=== PATIENT | female | born 1975 | race Hispanic/Latino ===

== ENCOUNTER 2025-05-06 12:41 | Emergency (ER) | payer OTHER ==
[~2025-05-06] VITALS: Ht 152.4 cm; Wt 86.2 kg
--- NOTE | 2025-05-06 12:55 | ERN ---
General Chief Complaint: Rectal Bleed Stated Complaint: RECTAL BLEEDING Time Seen by MD: 12:43 Source: patient History of Present Illness Initial Comments Patient is a 50-year-old female coming in complaining of rectal bleed. Per patient this has been ongoing for three days. She states that she does has a history of hemorrhoids but only when she was she has not felt anything protruding for any discomfort in the area. Allergies: Coded Allergies: No Known Allergies (Unverified Allergy, Unknown, 05/06/25) Past Medical History Past Medical History: No Pertinent History Past Surgical History: ROS Dictation CONSTITUTIONAL: No chills, no fever, no weakness, no diaphoresis, no malaise. HEAD/FACE: No signs of trauma. EENT: No eye pain, no blurred vision, no tearing, no double vision, no ear pain, no ear discharge, no nose pain, no nasal congestion, no throat pain, no throat swelling, no mouth pain. RESPIRATORY: No cough, no orthopnea, no SOB, no stridor, no wheezing. CARDIOVASCULAR: No chest pain, no edema, no palpitations, no syncope. GASTROINTESTINAL/ABDOMINAL: No abdominal pain, no constipation, no diarrhea, rectal bleed GENITOURINARY: No abnormal discharge, no dysuria, no frequent urination, no hematuria. No complaints of pain in the genitals. MUSCULOSKELETAL: No back pain, no gout, no joint pain, no joint swelling, no muscle pain, no muscle stiffness, no neck pain. INTEGUMENTARY: No change in color, no change in hair/nails, no dryness, no lesion, no lumps, no rash. NEUROLOGICAL/PSYCH: No anxiety, not depressed, no emotional problem, no headache, no numbness, no pre-existing deficit, no history of seizures, no tremors, no weakness. HEMATOLOGIC/LYMPHATIC: Not anemic, no history of blood clots, no apparent bleeding, no bruising, glands not swollen. All Systems Negative, Except as Noted. Physical Exam Physical Exam Dictation VITAL SIGNS: Reviewed. GENERAL APPEARANCE: Alert, oriented x3, no acute distress, obese. HEAD AND FACE: Non-traumatic. EYES: PERRL, pink conjunctivas, eyelid no trauma, anterior chamber clear. EARS: Pinnas intact and no signs of trauma or erythema. Ear canals clear and no discharge. TMs no erythema. NOSE: No discharge, no bleeding. OROPHARYNX: Mouth normal, teeth no caries, tongue pink. Pharynx clear, no erythema. Tonsils no exudates, no abscesses noted. Mucous membrane moist. NECK: Supple, non-tender, no thyromegaly, no masses, no JVD, no bruits. BREAST: Deferred. CHEST: No tenderness, no crepitus, no paradoxical movement, no retractions. LUNGS: Clear, well-ventilated, symmetric, no rales, no wheezing, no rhonchi, no stridor, good breath sounds bilaterally. HEART: Regular rate, regular rhythm, no murmur, no gallops. VASCULAR: No peripheral edema. ABDOMEN: Soft, positive bowel sounds, nondistended, no guarding, nontender, no rebound, no masses no hepatomegaly, no splenomegaly, no Zee's sign, no hernias. RECTAL: Rectal exam chaperoned by nurse internal hemorrhoids at 6:00 a.m. region GENITAL: Deferred. NEUROLOGICAL: Normal speech, gross motor function intact, gross sensory function intact. MUSCULOSKELETAL: Neck nontender, full range of motion, back nontender, full range of motion. EXTREMITIES: Nontender, full range of motion. SKIN: Color pink, dry, no turgor, no rash, no lacerations, no abrasions, no contusions. LYMPHATICS: Deferred. Results Laboratory and Microbiology Lab and Micro Result Laboratory Tests Test 05/06/25 13:05 05/06/25 13:06 05/06/25 13:21 Stool Occult Blood POSITIVE (NEGATIVE) H Urine Color YELLOW (YELLOW) Urine Appearance CLEAR (CLEAR) Urine pH 6.0 (5.0-8.0) Urine Specific [place] 1.030 (1.001-1.031) Urine Protein NEGATIVE mg/dL (NEGATIVE) Urine Glucose (UA) 30 mg/dL (NEGATIVE) H Urine Ketones NEGATIVE mg/dL (NEGATIVE) Urine Occult Blood NEGATIVE (NEGATIVE) Urine Nitrate NEGATIVE (NEGATIVE) Urine Bilirubin NEGATIVE mg/dL (NEGATIVE) Urine Urobilinogen 0.2 mg/dL (0.2-1.0) Urine Leukocyte Esterase NEGATIVE [place]/uL Urine RBC 2-5 /HPF (0-1) H Urine WBC 0-1 /HPF (0-1) Urine Squamous Epithelial Cells RARE /HPF (0-2) Urine Bacteria None /HPF (None Seen) White Blood Count 8.2 K/uL (4.8-10.8) Red Blood Count 3.84 MIL/uL (4.00-5.50) L Hemoglobin 11.3 g/dL (12.0-16.0) L Hematocrit 34.3 % (36-48) L Mean Corpuscular Volume 89.3 fL (79-99) Mean Corpuscular Hemoglobin 29.4 pg (27.0-33.0) Mean Corpuscular Hemoglobin Concent 32.9 g/dL (32.0-36.0) Red Cell Distribution Width 13.6 % (11.0-15.5) Platelet Count 319 K/uL (130-400) Mean Platelet Volume 9.2 fL (7.5-10.5) Immature Granulocyte % (Auto) 0.2 % (0-1) Neutrophils (%) (Auto) 44.4 % (40.0-77.0) Lymphocytes (%) (Auto) 43.1 % (21.0-51.0) Monocytes (%) (Auto) 9.1 % (3.0-13.0) Eosinophils (%) (Auto) 2.7 % (0.0-8.0) Basophils (%) (Auto) 0.5 % (0.0-5.0) Neutrophils # (Auto) 3.6 K/uL (1.8-7.7) Lymphocytes # (Auto) 3.5 K/uL (1.0-4.8) Monocytes # (Auto) 0.7 K/uL (0.1-1.0) Eosinophils # (Auto) 0.22 K/uL (0.00-0.70) Basophils # (Auto) 0.04 K/uL (0.00-0.20) Absolute Immature Granulocyte (auto 0.02 K/uL (0-1) Nucleated Red Blood Cells 0.0 % (0.0-0.19) Sodium Level 139 mmol/L (136-145) Potassium Level 4.0 mmol/L (3.5-5.1) Chloride Level 105 mmol/L (101-111) Carbon Dioxide Level 28 mmol/L (21-32) Blood Urea Nitrogen 13 mg/dL (7-18) Creatinine 0.7 mg/dL (0.5-1.0) Glomerular Filtration Rate Calc 105 mL/min (>90) Random Glucose 88 mg/dL (70-105) Total Calcium 8.2 mg/dL (8.5-10.1) L Labs Reviewed?: Yes MDM MDM: Differential diagnosis: Rectal bleed, internal hemorrhoids, GI bleed, Rationale: Tests considered and ordered secondary to shared decision making include: Previous outside records reviewed: Old ER visits. Risk of complication and/or morbidity or mortality of patient management: None Medications-Per medication reconciliation Need for hospitalization: Patient does not meet criteria for hospitalization. Need for emergency major/minor surgery: No Patient is a 50-year-old female coming in complaining of rectal bleed x3 days. Patient does state that she has a history of constipation and hemorrhoids as well. On physical exam chaperoned by nurse internal hemorrhoids at 6:00 a.m. region were felt with these findings I did advised her appropriate follow up with a chemistry tutor we will be referring her to chemistry tutor. I will be providing medication for symptomatic relief of hemorrhoids. Throughout ER vision patient has been stable we will be discharged in stable condition. ED Course Orders Procedure Category Date Status Time Cbc With Differential LAB 05/06/25 Complete 13:05 Basic Metabolic Panel LAB 05/06/25 Complete 13:05 Urinalysis LAB 05/06/25 Complete W/Microscopic 13:05 Occult Blood Stool LAB 05/06/25 Complete Single Only 13:05 Pantoprazole 40mg Inj PHA 05/06/25 In Process (Protonix 40mg Inj 14:00 Current Medications Medications (Trade) Dose Ordered Sig/Richar Route PRN Reason Start Time Stop Time Status Last Admin Dose Admin Pantoprazole Sodium (PROTonix 40MG INJ) 40 mg ONCE ONCE IVP 05/06/25 14:00 05/06/25 14:01 Vital Signs Date Time Temp Pulse Resp B/P (MAP) Pulse Ox O2 Delivery O2 Flow Rate FiO2 05/06/25 13:41 98.2 62 16 116/70 98 Room Air* 0 21 05/06/25 13:00 98.2 66 16 127/81 98 Room Air* 0 21 05/06/25 12:43 98.1 71 20 136/81 99 Room Air 0 DX & DISP Disposition: Discharge Departure Impression: Primary Impression: Internal hemorrhoids Additional Impression: Anemia Condition: Stable Scripts Pantoprazole Sodium (Protonix) 40 Mg Ectab 1 TAB PO DAILY for 30 Days, #30 TAB 0 Refills Prov: KEREN BARRON MD 05/06/25 Hydrocortisone Acetate (Hemmorex-Hc) 25 Mg Supp.rect 25 MG RC DAILY for 5 Days, #5 EA Prov: KEREN BARRON MD 05/06/25 Additional Instructions: FOLLOW-UP WITH PRIMARY CARE PROVIDER IN 1 TO 2 DAYS. TAKE MEDICATIONS DIRECTED HERE IN THE EMERGENCY ROOM. OKAY TO CONTINUE HOME MEDICATIONS UNLESS OTHERWISE DISCUSSED DURING YOUR VISIT IN THE EMERGENCY ROOM TODAY. RETURN TO YOUR NEAREST EMERGENCY ROOM IF SYMPTOMS WORSEN OR IF THERE IS NO IMPROVEMENT. CALL 911 IF YOU NEED IMMEDIATE ASSISTANCE. TAKE TYLENOL [id number] NEEDED AND IF NO CONTRAINDICATIONS ARE PRESENT. INCREASE ORAL HYDRATION. A WOUND CULTURE OR URINE CULTURE WAS ORDERED HERE IN THE EMERGENCY ROOM DEPARTMENT PLEASE FOLLOW-UP WITH PRIMARY CARE PROVIDER AND ADVISE THEM TO GET REPORTS FROM OUR FACILITY. IF YOU HAD ANY JEANNIE WRAP/SPLINTS THAT WERE APPLIED HERE, PLEASE DO NOT REMOVE THEM UNTIL YOU SEE YOUR PRIMARY CARE OR SPECIALTY. Referrals: Referrals: SELF,REFERRAL (PCP) SHRUTHI CARRILLO MD, BRIAN P MD Time of Disposition: 13:49 KEREN BARRON MD May 06, 2025 12:55
[2025-05-06 13:18] LABS: APPEARANCE,URINE CLEAR (CLEAR); GLUCOSE, URINE (UA) 30 mg/dL (NEGATIVE); LEUKOCYTE ESTERASE ,URINE NEGATIVE Leu/uL (NEGATIVE); NITRATE,URINE NEGATIVE (NEGATIVE); OCCULT BLOOD,URINE NEGATIVE (NEGATIVE)
[2025-05-06 13:25] LABS: IMMATURE GRANULOCYTE ABSOLUTE 0.02 K/uL (0-1); NUCLEATED RED BLOOD CELLS 0.0 % (0.0-0.19); PLATELET COUNT (AUTO) 319 K/uL (130-400); RED BLOOD CELL COUNT(AUTO) 3.84 MIL/uL (4.00-5.50); RED CELL DISTRIBUTION WIDTH 13.6 % (11.0-15.5); WHITE BLOOD COUNT (AUTO) 8.2 K/uL (4.8-10.8)
[2025-05-06 13:32] LABS: CREATININE 0.7 mg/dL (0.5-1.0); GLOMERULAR FILTR. RATE CALC 105.0 mL/min (>90); GLUCOSE,RANDOM 88.0 mg/dL (70-105); SODIUM SERUM 139.0 mmol/L (136-145); UREA NITROGEN, BLOOD 13.0 mg/dL (7-18)
[2025-05-06 13:36] LABS: SQUAMOUS EPITHELIAL CELL,UR RARE /HPF (0-2)
[2025-05-06 13:41] VITALS: BP 116/70; PULSE 62; RESP 16; TEMP 98.3; O2SAT 98
[2025-05-06] MEDS ORDERED: PANT40TA55 PO (13:52)
[2025-05-06] MEDS ORDERED: HYDR25SU52 RC (13:52)
== END 2025-05-06 14:04 | disposition home or self-care (01) ==
LOC: EDH 12:41
DX: K64.8 Other hemorrhoids (principal); D64.9 Anemia, unspecified; Z87.19 Personal history of other diseases of the digestive system; Z98.890 Other specified postprocedural states
CPT/HCPCS: 99283; 96374; 82270; 80048; 85025; 81001; 36415; J2470

== ENCOUNTER 2025-05-09 13:45 | Inpatient (IN) | payer OTHER ==
[~2025-05-09] VITALS: Ht 170.2 cm; Wt 86.0 kg
[~2025-05-09 13:45] MED LIST: HYDR25SU52 RC; PANT40TA55 PO
[2025-05-09 14:08] LABS: IMMATURE GRANULOCYTE ABSOLUTE 0.03 K/uL (0-1); NUCLEATED RED BLOOD CELLS 0.0 % (0.0-0.19); PLATELET COUNT (AUTO) 290 K/uL (130-400); RED BLOOD CELL COUNT(AUTO) 3.38 MIL/uL (4.00-5.50); RED CELL DISTRIBUTION WIDTH 13.8 % (11.0-15.5); WHITE BLOOD COUNT (AUTO) 10.6 K/uL (4.8-10.8)
[2025-05-09 14:15] LABS: CREATININE 0.7 mg/dL (0.5-1.0); GLOMERULAR FILTR. RATE CALC 105.0 mL/min (>90); GLUCOSE,RANDOM 95.0 mg/dL (70-105); SODIUM SERUM 137.0 mmol/L (136-145); UREA NITROGEN, BLOOD 10.0 mg/dL (7-18)
--- NOTE | 2025-05-09 14:49 | ERN ---
General Chief Complaint: Rectal Bleed Stated Complaint: RECTAL BLEED Time Seen by MD: 13:48 Source: patient History of Present Illness Initial Comments PATIENT IS A 50-YEAR-OLD FEMALE COMING IN COMPLAINING OF RECTAL BLEED. PATIENT WAS DIAGNOSED WITH HEMORRHOIDS . PATIENT STATES THAT SHE STARTED TAKING HER MEDICATION TWO DAYS AGO BUT HAS BEEN FEELING DIZZY. Allergies: Coded Allergies: No Known Allergies (Unverified Allergy, Unknown, 05/06/25) Home Meds Active Scripts Pantoprazole Sodium (Protonix) 40 Mg Ectab, 1 TAB PO DAILY for 30 Days, #30 TAB 0 Refills Prov:KEREN BARRON MD 05/06/25 Hydrocortisone Acetate (Hemmorex-Hc) 25 Mg Supp.rect, 25 MG RC DAILY for 5 Days, #5 EA Prov:KEREN BARRON MD 05/06/25 Past Medical History Past Medical History: No Pertinent History Medical History Other: CONSTIPATION Past Surgical History: ROS Dictation CONSTITUTIONAL: NO CHILLS, NO FEVER, NO WEAKNESS, NO DIAPHORESIS, NO MALAISE. HEAD/FACE: NO SIGNS OF TRAUMA. EENT: NO EYE PAIN, NO BLURRED VISION, NO TEARING, NO DOUBLE VISION, NO EAR PAIN, NO EAR DISCHARGE, NO NOSE PAIN, NO NASAL CONGESTION, NO THROAT PAIN, NO THROAT SWELLING, NO MOUTH PAIN. RESPIRATORY: NO COUGH, NO ORTHOPNEA, NO SOB, NO STRIDOR, NO WHEEZING. CARDIOVASCULAR: NO CHEST PAIN, NO EDEMA, NO PALPITATIONS, NO SYNCOPE. GASTROINTESTINAL/ABDOMINAL: NO ABDOMINAL PAIN, NO CONSTIPATION, NO DIARRHEA, NO NAUSEA, NO VOMITING. GENITOURINARY: NO ABNORMAL DISCHARGE, NO DYSURIA, NO FREQUENT URINATION, NO HEMATURIA. NO COMPLAINTS OF PAIN IN THE GENITALS. MUSCULOSKELETAL: NO BACK PAIN, NO GOUT, NO JOINT PAIN, NO JOINT SWELLING, NO MUSCLE PAIN, NO MUSCLE STIFFNESS, NO NECK PAIN. INTEGUMENTARY: NO CHANGE IN COLOR, NO CHANGE IN HAIR/NAILS, NO DRYNESS, NO LE STUART, NO LUMPS, NO RASH. NEUROLOGICAL/PSYCH: NO ANXIETY, NOT DEPRESSED, NO EMOTIONAL PROBLEM, NO HEADACHE, NO NUMBNESS, NO PRE-EXISTING DEFICIT, NO HISTORY OF SEIZURES, NO TREMORS, NO WEAKNESS. HEMATOLOGIC/LYMPHATIC: NOT ANEMIC, NO HISTORY OF BLOOD CLOTS, NO APPARENT BLEEDING, NO BRUISING, GLANDS NOT SWOLLEN. ALL SYSTEMS NEGATIVE, EXCEPT NOTED. Physical Exam Physical Exam Dictation VITAL SIGNS: REVIEWED. GENERAL APPEARANCE: ALERT, ORIENTED X3, NO ACUTE DISTRESS, OBESE. HEAD AND FACE: NON-TRAUMATIC. EYES: PERRL, PINK CONJUNCTIVAS, EYELID NO TRAUMA, ANTERIOR CHAMBER CLEAR. EARS: PINNAS INTACT AND NO SIGNS OF TRAUMA OR ERYTHEMA. EAR CANALS CLEAR AND NO DISCHARGE. TMS NO ERYTHEMA. NOSE: NO DISCHARGE, NO BLEEDING. OROPHARYNX: MOUTH NORMAL, TEETH NO CARIES, TONGUE PINK. PHARYNX CLEAR, NO ERYTHEMA. TONSILS NO EXUDATES, NO ABSCESSES NOTED. MUCOUS MEMBRANE MOIST. NECK: SUPPLE, NON-TENDER, NO THYROMEGALY, NO MASSES, NO JVD, NO BRUITS. BREAST: DEFERRED. CHEST: NO TENDERNESS, NO CREPITUS, NO PARADOXICAL MOVEMENT, NO RETRACTIONS. LUNGS: CLEAR, WELL-VENTILATED, SYMMETRIC, NO RALES, NO WHEEZING, NO RHONCHI, NO STRIDOR, GOOD BREATH SOUNDS BILATERALLY. HEART: REGULAR RATE, REGULAR RHYTHM, NO MURMUR, NO GALLOPS. VASCULAR: NO PERIPHERAL EDEMA. ABDOMEN: SOFT, POSITIVE BOWEL SOUNDS, NONDISTENDED, NO GUARDING, NONTENDER, NO REBOUND, NO MASSES NO HEPATOMEGALY, NO SPLENOMEGALY, NO MELENDEZ'S SIGN, NO HERNIAS. RECTAL: DEFERRED. GENITAL: DEFERRED. NEUROLOGICAL: NORMAL SPEECH, GROSS MOTOR FUNCTION INTACT, GROSS SENSORY FUNCTION INTACT. MUSCULOSKELETAL: NECK NONTENDER, FULL RANGE OF MOTION, BACK NONTENDER, FULL RANGE OF MOTION. EXTREMITIES: NONTENDER, FULL RANGE OF MOTION. SKIN: COLOR PINK, DRY, NO TURGOR, NO RASH, NO LACERATIONS, NO ABRASIONS, NO CONTUSIONS. LYMPHATICS: DEFERRED. Results Laboratory and Microbiology Lab and Micro Result Laboratory Tests Test 05/09/25 14:03 White Blood Count 10.6 K/uL (4.8-10.8) Red Blood Count 3.38 MIL/uL (4.00-5.50) L Hemoglobin 9.8 g/dL (12.0-16.0) L Hematocrit 30.3 % (36-48) L Mean Corpuscular Volume 89.6 fL (79-99) Mean Corpuscular Hemoglobin 29.0 pg (27.0-33.0) Mean Corpuscular Hemoglobin Concent 32.3 g/dL (32.0-36.0) Red Cell Distribution Width 13.8 % (11.0-15.5) Platelet Count 290 K/uL (130-400) Mean Platelet Volume 9.1 fL (7.5-10.5) Immature Granulocyte % (Auto) 0.3 % (0-1) Neutrophils (%) (Auto) 58.9 % (40.0-77.0) Lymphocytes (%) (Auto) 30.2 % (21.0-51.0) Monocytes (%) (Auto) 8.6 % (3.0-13.0) Eosinophils (%) (Auto) 1.7 % (0.0-8.0) Basophils (%) (Auto) 0.3 % (0.0-5.0) Neutrophils # (Auto) 6.3 K/uL (1.8-7.7) Lymphocytes # (Auto) 3.2 K/uL (1.0-4.8) Monocytes # (Auto) 0.9 K/uL (0.1-1.0) Eosinophils # (Auto) 0.18 K/uL (0.00-0.70) Basophils # (Auto) 0.03 K/uL (0.00-0.20) Absolute Immature Granulocyte (auto 0.03 K/uL (0-1) Nucleated Red Blood Cells 0.0 % (0.0-0.19) Sodium Level 137 mmol/L (136-145) Potassium Level 4.3 mmol/L (3.5-5.1) Chloride Level 102 mmol/L (101-111) Carbon Dioxide Level 28 mmol/L (21-32) Blood Urea Nitrogen 10 mg/dL (7-18) Creatinine 0.7 mg/dL (0.5-1.0) Glomerular Filtration Rate Calc 105 mL/min (>90) Random Glucose 95 mg/dL (70-105) Total Calcium 8.6 mg/dL (8.5-10.1) Labs Reviewed?: Yes MDM MDM: DIFFERENTIAL DIAGNOSIS:, RECTAL BLEED, GI BLEED RATIONALE: TESTS CONSIDERED AND ORDERED SECONDARY TO SHARED DECISION MAKING INCLUDE: LABS, ECG AND RADIOLOGY PREVIOUS OUTSIDE RECORDS REVIEWED: OLD ER VISITS. RISK OF COMPLICATION AND/OR MORBIDITY OR MORTALITY OF PATIENT MANAGEMENT: NONE MEDICATIONS-PER MEDICATION RECONCILIATION NEED FOR HOSPITALIZATION: PATIENT DOES MEET CRITERIA FOR HOSPITALIZATION. NEED FOR EMERGENCY MAJOR/MINOR SURGERY: NO THERE ARE NO SOCIAL CONCERNS WITH THIS PATIENT. PRESCRIPTION DRUG MANAGEMENT PRESCRIPTIONS WILL INCLUDE SYMPTOMATIC CARE PATIENT'S PRIOR EXTERNAL MEDICAL RECORDS FROM OTHER ER VISITS WERE REVIEWED BY ME INDICATED. PRIOR TESTING AND RESULTS FROM PREVIOUS VISITS WERE REVIEWED. PRIOR TESTS WERE TAKEN INTO ACCOUNT WITH MEDICAL DECISION MAKING AND RESOURCE UTILIZATION, INDEPENDENT HISTORIAN/HISTORIANS WERE USED TO OBTAIN COMPLETE MEDICAL HISTORY. I INDEPENDENTLY INTERPRETED THE TEST THAT WERE PERFORMED, RESULTS WERE REVIEWED BY ME AND CONSIDERED FINDINGS ON RADIOLOGY IF ORDERED. MEDICAL MANAGEMENT AND EXAMINATION INTERPRETATION DISCUSSIONS WERE HAD BY ME WITH OTHER QUALIFIED HEALTHCARE PROFESSIONALS INDICATED FOR THE PATIENT'S CARE. PATIENT IS A 50-YEAR-OLD FEMALE COMING IN COMPLAINING OF RECTAL BLEED. PATIENT WAS EVALUATED WAS FOUND TO HAVE A HEMORRHOIDS HAS NOT TAKEN HER MEDICATION TILL TWO DAYS AGO. HEMOGLOBIN LOWER THE LAST VISIT PATIENT WILL BE ADMITTED UNDER THE CARE OF HOSPITALIST GROUP FOR ONGOING EVALUATION AND MANAGEMENT. ED Course Orders Procedure Category Date Status Time Cbc With Differential LAB 05/09/25 Complete 13:55 Basic Metabolic Panel LAB 05/09/25 Complete 13:55 Ct Abdomen/Pelvis CT 05/09/25 Logged W/Contrast 14:49 Vital Signs Date Time Temp Pulse Resp B/P (MAP) Pulse Ox O2 Delivery O2 Flow Rate FiO2 05/09/25 14:54 98.6 90 20 113/68 98 Room Air* 0 21 05/09/25 13:46 98.8 90 20 113/68 98 0 DX & DISP Disposition: Inpatient Decision to Admit Time: 15:10 Departure Impression: Primary Impression: Internal hemorrhoids Additional Impressions: Anemia, GI bleed Condition: Stable Referrals: SELF,REFERRAL (PCP) KEREN BARRON MD May 09, 2025 14:49
[2025-05-09] MEDS ORDERED: IOHEXOL-350 75 ML VIAL IV ONE (15:11)
--- NOTE | 2025-05-09 15:22 | HP ---
[facility] HISTORY AND PHYSICAL Date of Service: May 09, 2025 Time of Service: 15:12 HISTORY OF PRESENT ILLNESS: [ ] Admission date 05/09/2025 Chief complaint rectal bleed PCP self referral This is a 50-year-old female that presents in ED with chief complaints of rectal bleed. onset since 5 days, severity of blood loss: moderate amount. Denies rectal pain, abd pain, suprapubic pain. Patient was diagnosed with hemorrhoids two days ago. Presented in ED two days ago with similar symptoms and was discharged with hydrocortisone acetate 25 mg suppository, reports taking medication was just started on Saturday evening. but this morning she was feeling dyspnea on exertion, headache, tired lightheaded and dizzy and decided to come to ED for further evaluation and treatment. ER workup was consistent with anemia secondary to blood loss from hemorrhoids. Patient has not have her GI screening colonoscopy. She does reports she eats a lot of spicy foods on a daily basis and history of constipation. Labs reviewed WBCs 10.6 hemoglobin 9.8 hematocrit 30.3 chemistry unremarkable occult blood pending Patient was seen in ED hallway be she appears fully awake alert oriented x3 REVIEW OF SYSTEMS A 14 point ROS was obtained all relevant positive documented otherwise ROS negative PAST MEDICAL HISTORY: [ ] no pertinent history PAST SURGICAL HISTORY: [ ] PAST SOCIAL HISTORY: [ ] Smoking tobacco products and alcohol use FAMILY HISTORY: [ ] Noncontributory Coded Allergies: No Known Allergies (Unverified Allergy, Unknown, 05/06/25) PHYSICAL EXAM GENERAL APPEARANCE: The patient is awake, alert, and oriented, in no acute cardiopulmonary distress. NEUROLOGICAL: Cranial nerves II-XII grossly intact. Motor is 5/5 in bilateral upper and lower extremities proximal to distal. No sensory deficits. HEENT: Face is symmetric. Pupils are equal and reactive. Extraocular movements are intact. NECK: Supple. No JVD. No thyromegaly. No submental, submandibular, pre-/posta uricular, occipital or supraclavicular lymphadenopathy. CHEST: Normal chest expansion. No Telemetry. LUNGS: Absence of any rales, rhonchi or any wheezing. CARDIOVASCULAR: Regular. S1 and S2 normal. No appreciable rubs, murmurs or gallops. ABDOMEN: Soft, nontender, and nondistended. There is no rebound, voluntary guarding, or rigidity. : Deferred. No Mccormack. EXTREMITIES: Non-edematous and not cyanotic. No clubbing. Good capillary refill. SKIN: No skin breakdown. Vital Sign (Last 24 Hours) 05/09/25 14:54 Temp 98.6 Pulse 90 Resp 20 B/P (MAP) 113/68 Pulse Ox 98 O2 Delivery Room Air* O2 Flow Rate 0 FiO2 21 LABS: Laboratory: Test 05/09/25 14:03 Range/Units White Blood Count 10.6 4.8-10.8 K/uL Red Blood Count 3.38 L 4.00-5.50 MIL/uL Hemoglobin 9.8 L 12.0-16.0 g/dL Hematocrit 30.3 L 36-48 % Mean Corpuscular Volume 89.6 79-99 fL Mean Corpuscular Hemoglobin 29.0 27.0-33.0 pg Mean Corpuscular Hemoglobin Concent 32.3 32.0-36.0 g/dL Red Cell Distribution Width 13.8 11.0-15.5 % Platelet Count 290 130-400 K/uL Mean Platelet Volume 9.1 7.5-10.5 fL Immature Granulocyte % (Auto) 0.3 0-1 % Neutrophils (%) (Auto) 58.9 40.0-77.0 % Lymphocytes (%) (Auto) 30.2 21.0-51.0 % Monocytes (%) (Auto) 8.6 3.0-13.0 % Eosinophils (%) (Auto) 1.7 0.0-8.0 % Basophils (%) (Auto) 0.3 0.0-5.0 % Neutrophils # (Auto) 6.3 1.8-7.7 K/uL Lymphocytes # (Auto) 3.2 1.0-4.8 K/uL Monocytes # (Auto) 0.9 0.1-1.0 K/uL Eosinophils # (Auto) 0.18 0.00-0.70 K/uL Basophils # (Auto) 0.03 0.00-0.20 K/uL Absolute Immature Granulocyte (auto 0.03 0-1 K/uL Nucleated Red Blood Cells 0.0 0.0-0.19 % Sodium Level 137 136-145 mmol/L Potassium Level 4.3 3.5-5.1 mmol/L Chloride Level 102 101-111 mmol/L Carbon Dioxide Level 28 21-32 mmol/L Blood Urea Nitrogen 10 7-18 mg/dL Creatinine 0.7 0.5-1.0 mg/dL Glomerular Filtration Rate Calc 105 >90 mL/min Random Glucose 95 70-105 mg/dL Total Calcium 8.6 8.5-10.1 mg/dL DIAGNOSTICS / RADIOLOGY: [ ] ASSESSMENT: Rectal bleed POA Acute anemia secondary to blood loss POA Constipation PLAN: [ ] Admit: Medical-surgical floor condition: Guarded Status: Full code IVF: NS at 75 mL/hour Consultants GI Procedure: Possible colonoscopy H&H every 6 hours Protonix 40 mg IV daily Imaging CT abdomen pelvis pending results Labs cbc, cmp, mag+ We will monitor H&H trend to keep hemoglobin above 7.0 Replace electrolytes as needed as per protocol to keep potassium above 4.0 magnesium 2.0. Home medications pending to be reviewed by RN nurse. PRN: MEDICATIONS Tylenol 650 mg po every 4 hrs for fever zofran 4 mg IV every 6 hrs for n/v Hydralazine 5 mg IV every 4 hrs systolic pressure > 160 bowel regiment: lactulose 20 gm PO BID PRN constipation Supportive measures: DVT ppx, GI ppx all questions answered time spent: > 35 min Supervising MD: Dr. Belen Cameron c/d This document was generated in part using voice recognition software, occasional wrong word or sound alike substitutions may have occurred due to the inherent limitations of voice recognition software. Read the chart carefully and recognize using context, where the substitutions have occurred. Although every effort was made to edit the content, outside cutter hand and typing errors may occur [facility]VANCED CARE PLANNING 1. Which of the following were discussed? Hospice Care - Yes / No Therapeutic options - Yes / No Advance Directives - Yes / No Other discussions - 2. Discussed with who? 3. Voluntary nature of this service was explained to the patient? Yes / No 4. Amount of time spent - 5. Reviewed by Physician? (if this service was performed by NPP) Yes / No ATTESTATION BY PHYSICIAN I have seen and examined the patient. I reviewed the documentation, medical decision making, and treatment plan as noted by the mid-level provider above. I agree with the findings and plan of care. Beni Dorado IV, MD, [facility] May 09, 2025 15:22
[2025-05-09] MEDS: 0.9%NACL 1000ML 1,000 ML IV SCH (15:33)
[2025-05-09] MEDS ORDERED: PoTASSium chl 10% ELIXIR 20MEQ 20 MEQ/15 ML UDCUP PO PRN (16:00)
[2025-05-09] MEDS ORDERED: MAGNESIUM 2GM PREMIX 50ML 50 ML IV PRN (16:00)
[2025-05-09] MEDS ORDERED: LACTULOSE 20 GM/30 ML UDCUP PO PRN (16:00)
--- NOTE | 2025-05-09 16:58 | HMCIMG ---
EXAM: CT Abdomen and Pelvis with IV Contrast. CLINICAL HISTORY: GI bleed. TECHNIQUE: Axial computed tomography images of the abdomen and pelvis with intravenous contrast. CONTRAST: With intravenous contrast. COMPARISON: None provided. FINDINGS: LUNG BASES: Clear. No pleural effusions. LIVER: Enlarged, measuring 21.6 cm. No focal lesion. GALLBLADDER AND BILE DUCTS: Gallbladder within normal limits. No radiopaque gallstones. No biliary ductal dilatation. PANCREAS: Unremarkable. SPLEEN: Unremarkable. ADRENAL GLANDS: Unremarkable. KIDNEYS, URETERS, AND BLADDER: Kidneys within normal limits. No hydronephrosis or hydroureter. No urinary calculi. Bosniak I cyst in the mid pole of the left kidney measuring 3.6 x 3.6 cm. STOMACH AND BOWEL: Unremarkable appearance of the stomach and bowel. No bowel obstruction. No findings of enteritis or colitis. APPENDIX: No evidence of acute appendicitis. PERITONEUM: Mild free fluid in pelvis. No free air. LYMPH NODES: No lymphadenopathy. REPRODUCTIVE: Lobulated heterogeneously enhancing mass in the pelvis and right iliac fossa measuring 10.2 x 13.9 x 12.8 cm, showing ill-defined interface with the uterine fundus, displacing adjacent bowel loops, and closely abutting the right lobe of the liver with preserved fat planes. Bulky uterus with two well-defined subserosal fibroids containing internal calcifications in the fundus and right lateral wall, largest measuring 7.5 x 6.7 x 6.8 cm. Well-defined oval fat-attenuating lesions in both adnexa, measuring 4.0 x 2.6 cm on the right and 4.3 x 3.5 cm on the left, suggestive of ovarian dermoid cysts. VASCULATURE: No abdominal aortic aneurysm. BONES: No aggressive osseous lesion. No acute osseous pathology. IMPRESSION: Large lobulated mass in the pelvis and right iliac fossa with an ill-defined interface with uterine fundus likely a large uterine subserosal fibroid. Possibility of a neoplastic uterine mass cannot be ruled out. Pelvic MRI recommended to better evaluate Bilateral ovarian dermoid cysts. Subserosal uterine fibroids with calcification. Mild pelvic free fluid. Mild hepatomegaly. /[place]
--- NOTE | 2025-05-09 19:22 | NUR ---
ATTEMPT TO GIVE REPORT. NOT SUCCESSFUL. PENDING CALL BACK.
--- NOTE | 2025-05-09 19:31 | NUR ---
REPORT GIVEN TO ARISTEO AGUILERA AT THIS TIME
[2025-05-09 20:45] VITALS: BP 110/66; PULSE 80; RESP 20; TEMP 99.6
[2025-05-09 23:58] VITALS: BP 106/62; PULSE 77; RESP 20; TEMP 98.8
[2025-05-10] VITALS (8 sets, daily range): BP systolic 106–118; BP diastolic 57–66; PULSE 83–92; RESP 17–20; TEMP 98.6–101; O2SAT 95
[2025-05-10 04:24] LABS: IMMATURE GRANULOCYTE ABSOLUTE 0.03 K/uL (0-1); NUCLEATED RED BLOOD CELLS 0.0 % (0.0-0.19); PLATELET COUNT (AUTO) 260 K/uL (130-400); RED BLOOD CELL COUNT(AUTO) 3.02 MIL/uL (4.00-5.50); RED CELL DISTRIBUTION WIDTH 13.7 % (11.0-15.5); WHITE BLOOD COUNT (AUTO) 9.7 K/uL (4.8-10.8)
[2025-05-10 04:39] LABS: ASPARTATE AMINOTRANSFERASE 15.0 U/L (10-37); CREATININE 0.8 mg/dL (0.5-1.0); GLOMERULAR FILTR. RATE CALC 89.0 mL/min (>90); GLUCOSE,RANDOM 103.0 mg/dL (70-105); SODIUM SERUM 138.0 mmol/L (136-145); TOTAL PROTEIN, SERUM 6.8 g/dL (6.0-8.3); UREA NITROGEN, BLOOD 9.0 mg/dL (7-18)
--- NOTE | 2025-05-10 11:08 | NUR ---
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 Community resources given. Pt lives at home with her Gilberto Garcia [phone] and their family. Pt is independent of all her ADLS, uses no DME or in home care services. Pt denies dc needs and will return home at dc Addendum: 05/10/25 at 1111 by LESLI HILL Amended: Links added.
[2025-05-10 13:58] LABS: % IRON SATURATION 4.3 % (22-44); IRON, SERUM 16.0 mcg/dL (50-170)
--- NOTE | 2025-05-10 13:59 | PN ---
[facility] PROGRESS NOTE Date of Service: May 10, 2025 Time of Service: 13:39 HISTORY OF PRESENT ILLNESS: This is a 50-year-old female that presents in ED with chief complaints of rectal bleed. onset since 5 days, severity of blood loss: moderate amount. Denies rectal pain, abd pain, suprapubic pain. Patient was diagnosed with hemorrhoids two days ago. Presented in ED two days ago with similar symptoms and was discharged with hydrocortisone acetate 25 mg suppository, reports taking medication was just started on Saturday evening. but this morning she was feeling dyspnea on exertion, headache, tired lightheaded and dizzy and decided to come to ED for further evaluation and treatment. ER workup was consistent with anemia secondary to blood loss from hemorrhoids. Patient never had her GI screening colonoscopy. She does reports she eats a lot of spicy foods on a daily basis and history of constipation. Labs reviewed WBCs 10.6 hemoglobin 9.8 hematocrit 30.3 chemistry unremarkable occult blood pending on admission SUBJECTIVE: 05/10/25: Patient was seen and evaluated in room 417. Patient reports of continuing rectal bleed. Patient denies rectal pain, abdominal pain, suprapubic pain. Patient denies fever, chills, dizziness, lightheadedness and shortness of breath. GI was consulted, will follow their recommendations. CT scan was done, results show - Large lobulated mass in the pelvis and right iliac fossa with an ill-defined interface with uterine fundus likely a large uterine subserosal fibroid, Bilateral ovarian dermoid cysts. Subserosal uterine fibroids with calcification, Mild pelvic free fluid, Mild hepatomegaly. REVIEW OF SYSTEMS A 14 point ROS was obtained all relevant positive documented otherwise ROS negative PHYSICAL EXAM GENERAL APPEARANCE: The patient is awake, alert, and oriented, in no acute cardiopulmonary distress. NEUROLOGICAL: Cranial nerves II-XII grossly intact. Motor is 5/5 in bilateral upper and lower extremities proximal to distal. No sensory deficits. HEENT: Face is symmetric. Pupils are equal and reactive. Extraocular movements are intact. NECK: Supple. No JVD. No thyromegaly. No submental, submandibular, pre-/ postauricular, occipital or supraclavicular lymphadenopathy. CHEST: Normal chest expansion. No Telemetry. LUNGS: Absence of any rales, rhonchi or any wheezing. CARDIOVASCULAR: Regular. S1 and S2 normal. No appreciable rubs, murmurs or gallops. ABDOMEN: Soft, nontender, and nondistended. There is no rebound, voluntary guarding, or rigidity. : Deferred. No Mccormack. EXTREMITIES: Non-edematous and not cyanotic. No clubbing. Good capillary refill. SKIN: No skin breakdown. Vital Signs (last 8hr) Date Time Temp Pulse Resp B/P (MAP) Pulse Ox O2 Delivery O2 Flow Rate FiO2 05/10/25 11:42 98.6 83 18 111/64 97 Room Air 05/10/25 09:30 98.8 83 18 108/63 96 Room Air 05/10/25 08:34 Room Air* 0 21 LABS: Laboratory: Test 05/10/25 13:15 05/10/25 07:55 05/10/25 04:04 Range/Units Hemoglobin 9.6 L 12.0-16.0 g/dL Hematocrit 28.5 L 36-48 % Reticulocyte Count (auto) 2.51329 H 0.42-2.23 % Immature Reticulocyte Fraction 27.80 H 0.18-0.48 % Stool Occult Blood POSITIVE H NEGATIVE White Blood Count 9.7 4.8-10.8 K/uL Red Blood Count 3.02 L 4.00-5.50 MIL/uL Mean Corpuscular Volume 88.1 79-99 fL Mean Corpuscular Hemoglobin 29.1 27.0-33.0 pg Mean Corpuscular Hemoglobin Concent 33.1 32.0-36.0 g/dL Red Cell Distribution Width 13.7 11.0-15.5 % Platelet Count 260 130-400 K/uL Mean Platelet Volume 9.1 7.5-10.5 fL Immature Granulocyte % (Auto) 0.3 0-1 % Neutrophils (%) (Auto) 60.4 40.0-77.0 % Lymphocytes (%) (Auto) 27.5 21.0-51.0 % Monocytes (%) (Auto) 10.2 3.0-13.0 % Eosinophils (%) (Auto) 1.3 0.0-8.0 % Basophils (%) (Auto) 0.3 0.0-5.0 % Neutrophils # (Auto) 5.8 1.8-7.7 K/uL Lymphocytes # (Auto) 2.7 1.0-4.8 K/uL Monocytes # (Auto) 1.0 0.1-1.0 K/uL Eosinophils # (Auto) 0.13 0.00-0.70 K/uL Basophils # (Auto) 0.03 0.00-0.20 K/uL Absolute Immature Granulocyte (auto 0.03 0-1 K/uL Nucleated Red Blood Cells 0.0 0.0-0.19 % Sodium Level 138 136-145 mmol/L Potassium Level 3.6 3.5-5.1 mmol/L Chloride Level 103 101-111 mmol/L Carbon Dioxide Level 27 21-32 mmol/L Blood Urea Nitrogen 9 7-18 mg/dL Creatinine 0.8 0.5-1.0 mg/dL Glomerular Filtration Rate Calc 89 >90 mL/min Random Glucose 103 70-105 mg/dL Total Calcium 8.0 L 8.5-10.1 mg/dL Magnesium Level 1.90 1.80-2.40 mg/dL Total Bilirubin 0.3 0.2-1.0 mg/dL Aspartate Amino Transf (AST/SGOT) 15 10-37 U/L Alanine Aminotransferase (ALT/SGPT) 15 12-78 U/L Alkaline Phosphatase 39 L 50-136 U/L Total Protein 6.8 6.0-8.3 g/dL Albumin 2.9 L 3.5-5.0 g/dL Current Medications Medications (Trade) Dose Ordered Sig/Richar Route PRN Reason Start Time Stop Time Status Last Admin Dose Admin Acetaminophen (TYLenol 325MG TAB) 650 mg Q4H PRN PO TEMPERATURE GREATER THAN 101.5 05/09/25 15:30 06/08/25 15:29 Hydralazine HCl (APRESOLine 20MG INJ) 5 mg Q4H PRN IV ADMINISTER FOR SBP > 160 05/09/25 15:30 06/08/25 15:29 Hydrocortisone Acetate (anuSOL-HC 25MG SUPP) 1 supp DAILY FL 05/10/25 09:00 06/09/25 08:59 Lactulose (Constulose 20gm/ 30ml Udcup) 20 gm BID PRN PO CONSTIPATION 05/09/25 16:00 06/08/25 15:59 Magnesium Sulfate 50 ml @ 0 mls/hr PROTOCOL PRN IV low mag level 05/09/25 16:00 06/08/25 15:59 Morphine Sulfate (morPHINE 2MG SYG) 2 mg Q4H PRN IVP SEVERE PAIN (7-10) 05/09/25 15:30 05/16/25 15:29 Ondansetron HCl (zoFRAN 4MG INJ) 4 mg Q6H PRN IVP NAUSEA/VOMITING 05/09/25 15:30 06/08/25 15:29 Pantoprazole Sodium (PROTonix 40MG INJ) 40 mg DAILY IVP 05/10/25 09:00 06/09/25 08:59 05/10/25 08:30 40 MG Potassium Chloride 100 ml @ 100 mls/hr AD PRN IV POTASSIUM PROTOCOL 05/09/25 16:00 06/08/25 15:59 Potassium Chloride (K-Dur/Klor-Con 20meq) 20 meq AD PRN PO POTASSIUM PROTOCOL 05/09/25 16:00 06/08/25 15:59 Potassium Chloride (KCl 10% Elixir 20meq/15ml) 20 meq AD PRN PO POTASSIUM PROTOCOL 05/09/25 16:00 06/08/25 15:59 Sodium Chloride 1,000 ml @ 75 mls/hr [id number] IV 05/09/25 15:30 06/08/25 15:29 05/09/25 15:33 75 MLS/HR DIAGNOSTICS / RADIOLOGY: [place] [address] IMAGING REPORT Signed PATIENT: JARET EGAN MR#: [id number] : 1975 SEX: F AGE: 50 LOCATION: [facility] ORDER 48 STATUS: ADM IN REPORT#: [id number] SERVICE 48 REASON: GI BLEED ORDERING PHYSICIAN: KEREN BARRON MD PROCEDURE: ABD PEL W - CT ABDOMEN/PELVIS W/CONTRAST EXAM: CT Abdomen and Pelvis with IV Contrast. CLINICAL HISTORY: GI bleed. TECHNIQUE: Axial computed tomography images of the abdomen and pelvis with intravenous contrast. CONTRAST: With intravenous contrast. COMPARISON: None provided. FINDINGS: LUNG BASES: Clear. No pleural effusions. LIVER: Enlarged, measuring 21.6 cm. No focal lesion. GALLBLADDER AND BILE DUCTS: Gallbladder within normal limits. No radiopaque gallstones. No biliary ductal dilatation. PANCREAS: Unremarkable. SPLEEN: Unremarkable. ADRENAL GLANDS: Unremarkable. KIDNEYS, URETERS, AND BLADDER: Kidneys within normal limits. No hydronephrosis or hydroureter. No urinary calculi. Bosniak I cyst in the mid pole of the left kidney measuring 3.6 x 3.6 cm. STOMACH AND BOWEL: Unremarkable appearance of the stomach and bowel. No bowel obstruction. No findings of enteritis or colitis. APPENDIX: No evidence of acute appendicitis. PERITONEUM: Mild free fluid in pelvis. No free air. LYMPH NODES: No lymphadenopathy. REPRODUCTIVE: Lobulated heterogeneously enhancing mass in the pelvis and right iliac fossa measuring 10.2 x 13.9 x 12.8 cm, showing ill-defined interface with the uterine fundus, displacing adjacent bowel loops, and closely abutting the right lobe of the liver with preserved fat planes. Bulky uterus with two well-defined subserosal fibroids containing internal calcifications in the fundus and right lateral wall, largest measuring 7.5 x 6.7 x 6.8 cm. Well-defined oval fat-attenuating lesions in both adnexa, measuring 4.0 x 2.6 cm on the right and 4.3 x 3.5 cm on the left, suggestive of ovarian dermoid cysts. VASCULATURE: No abdominal aortic aneurysm. BONES: No aggressive osseous lesion. No acute osseous pathology. IMPRESSION: Large lobulated mass in the pelvis and right iliac fossa with an ill-defined interface with uterine fundus likely a large uterine subserosal fibroid. Possibility of a neoplastic uterine mass cannot be ruled out. Pelvic MRI recommended to better evaluate Bilateral ovarian dermoid cysts. Subserosal uterine fibroids with calcification. Mild pelvic free fluid. Mild hepatomegaly. /[place] DICTATED BY: DORA CASSIDY MD DATE: 05/09/251756 ELECTRONICALLY SIGNED BY: DORA CASSIDY MD DATE: 05/09/251756 ASSESSMENT: Rectal bleed POA Acute anemia secondary to blood loss POA Constipation PLAN: Rectal bleed, POA: * Started on Intravenous Fluid NS at 75 mL/hour * GI was consulted, will follow their recommendations. * We will monitor H&H trend to keep hemoglobin above 7.0 * CT abdomen was ordered, result show Large lobulated mass in the pelvis and right iliac fossa with an ill-defined interface with uterine fundus likely a large uterine subserosal fibroid, Bilateral ovarian dermoid cysts. Subserosal uterine fibroids with calcification, Mild pelvic free fluid, Mild hepatomegaly. * Started on Protonix 40 mg IV daily * Started on Zofran 4 mg IV every 6 hours. Acute anemia secondary to blood loss, POA: * On presentation Hemoglobin was 9.8, Hematocrit was 30.3 * Anemia panel was ordered, pending results. * Hemoglobin trends 9.8>8.7>8.8 * We will monitor H&H trend to keep hemoglobin above 7.0 Supportive measures: Tylenol 650 mg po every 4 hours for fever Hydralazine 5 mg IV every 4 hours systolic pressure > 160 Lactulose 20 gm PO BID PRN constipation DVT ppx, GI ppx. ATTESTATION BY PHYSICIAN I have seen and examined the patient. I reviewed the documentation, medical decision making, and treatment plan as noted by the resident physician above. I agree with the findings and plan of care. REHAN AVINA MD, SHAJI MD May 10, 2025 13:59
--- NOTE | 2025-05-10 14:00 | NUR ---
GAVE REPORT TO ALE ROBERSON
--- NOTE | 2025-05-10 17:57 | CONS ---
GASTROENTEROLOGY CONSULTATION NOTE Date of Consultation: May 10, 2025 Time of Consultation: 17:57 History of Present Illness: This is a 50-year-old female with no past medical history who presented to the hospital due to hematochezia. Hemoglobin 9 on admission and has been trending down. She had imaging revealing concern for uterine fibroid versus concern for neoplastic process. No history of EGD or colonoscopy. Review of Systems: CONSTITUTIONAL: No malaise or change in sensation of wellbeing. ENMT: No rhinorrhea, otorrhea, sinus pain, ear ache. CARDIOVASCULAR: No angina, palpitations, orthopnea or paroxysmal dyspnea. RESPIRATORY: No SOB. GASTROINTESTINAL: No abdominal pain, nausea, vomiting, diarrhea, hematemesis, melena or change in the patient's habitual bowel movements consistency/number. GENITOURINARY: No dysuria, hematuria or change in bladder continence. MUSCULOSKELETAL: No new muscle pain or decrease in muscular strength. No new joint swelling, redness or tenderness. SKIN: No new rash. Past Medical History: PAST MEDICAL HISTORY: [ ] no pertinent history PAST SURGICAL HISTORY: [ ] PAST SOCIAL HISTORY: [ ] Smoking tobacco products and alcohol use FAMILY HISTORY: [ ] Noncontributory Coded Allergies: Coded Allergies: No Known Allergies (Unverified Allergy, Unknown, 05/06/25) Physical Exam: GEN: Awake, alert, oriented in person, time and place, and in no acute distress. HEENT: No sinus tenderness. Tympanic membranes were not examined. No rhinorrhea. Oral pharyngeal mucosa is pink, moist and within normal limits. Neck is supple with no cervical lymphadenopathy, thyromegaly or JVD. CHEST: Inspection, palpation and percussion of the chest were unremarkable. Lung auscultation revealed normal breath sounds bilaterally. CARDIAC: PMI is within normal limits. Heart sounds are regular. Normal S1, S2. No gallop or murmur. ABD: Soft, non-tender and not distended. No peritoneal signs on palpation. No organomegaly. Normal bowel sounds. EXT: No cyanosis or clubbing. No edema. SKIN: Intact. No rashes. JOINTS: No evidence of synovitis or acute arthritis. NEURO: Alert and oriented to name, place and person. Cranial nerve examination is unremarkable. No focal motor deficits. Normal speech. Gait is normal. Strength is normal. Vital Sign (Last 24 Hours) 05/10/25 05/10/25 08:34 16:01 Temp 98.8 Pulse 90 Resp 18 B/P (MAP) 113/66 Pulse Ox 98 O2 Delivery Room Air O2 Flow Rate 0 FiO2 21 Intake & Output (last 24hrs) 0 05/09/25 05/09/25 05/10/25 15:00 23:00 07:00 Intake Total 500.0 ml Balance 500.0 ml Laboratory: [ ] Laboratory: Test 05/10/25 17:22 05/10/25 13:15 05/10/25 07:55 05/10/25 04:04 Range/Units Hemoglobin 9.0 L 12.0-16.0 g/dL Hematocrit 27.3 L 36-48 % Reticulocyte Count (auto) 2.70916 H 0.42-2.23 % Immature Reticulocyte Fraction 27.80 H 0.18-0.48 % Iron Level 16 L 50-170 mcg/dL Total Iron Binding Capacity 368 250-450 mcg/dL Percent Iron Saturation 4.3 L 22-44 % Ferritin 36 15-150 ng/mL Vitamin B12 Level 446 193-986 pg/mL Stool Occult Blood POSITIVE H NEGATIVE White Blood Count 9.7 4.8-10.8 K/uL Red Blood Count 3.02 L 4.00-5.50 MIL/uL Mean Corpuscular Volume 88.1 79-99 fL Mean Corpuscular Hemoglobin 29.1 27.0-33.0 pg Mean Corpuscular Hemoglobin Concent 33.1 32.0-36.0 g/dL Red Cell Distribution Width 13.7 11.0-15.5 % Platelet Count 260 130-400 K/uL Mean Platelet Volume 9.1 7.5-10.5 fL Immature Granulocyte % (Auto) 0.3 0-1 % Neutrophils (%) (Auto) 60.4 40.0-77.0 % Lymphocytes (%) (Auto) 27.5 21.0-51.0 % Monocytes (%) (Auto) 10.2 3.0-13.0 % Eosinophils (%) (Auto) 1.3 0.0-8.0 % Basophils (%) (Auto) 0.3 0.0-5.0 % Neutrophils # (Auto) 5.8 1.8-7.7 K/uL Lymphocytes # (Auto) 2.7 1.0-4.8 K/uL Monocytes # (Auto) 1.0 0.1-1.0 K/uL Eosinophils # (Auto) 0.13 0.00-0.70 K/uL Basophils # (Auto) 0.03 0.00-0.20 K/uL Absolute Immature Granulocyte (auto 0.03 0-1 K/uL Nucleated Red Blood Cells 0.0 0.0-0.19 % Sodium Level 138 136-145 mmol/L Potassium Level 3.6 3.5-5.1 mmol/L Chloride Level 103 101-111 mmol/L Carbon Dioxide Level 27 21-32 mmol/L Blood Urea Nitrogen 9 7-18 mg/dL Creatinine 0.8 0.5-1.0 mg/dL Glomerular Filtration Rate Calc 89 >90 mL/min Random Glucose 103 70-105 mg/dL Total Calcium 8.0 L 8.5-10.1 mg/dL Magnesium Level 1.90 1.80-2.40 mg/dL Total Bilirubin 0.3 0.2-1.0 mg/dL Aspartate Amino Transf (AST/SGOT) 15 10-37 U/L Alanine Aminotransferase (ALT/SGPT) 15 12-78 U/L Alkaline Phosphatase 39 L 50-136 U/L Total Protein 6.8 6.0-8.3 g/dL Albumin 2.9 L 3.5-5.0 g/dL Current Medications Medications (Trade) Dose Ordered Sig/Richar Route PRN Reason Start Time Stop Time Status Last Admin Dose Admin Acetaminophen (TYLenol 325MG TAB) 650 mg Q4H PRN PO TEMPERATURE GREATER THAN 101.5 05/09/25 15:30 06/08/25 15:29 Hydralazine HCl (APRESOLine 20MG INJ) 5 mg Q4H PRN IV ADMINISTER FOR SBP > 160 05/09/25 15:30 06/08/25 15:29 Hydrocortisone Acetate (anuSOL-HC 25MG SUPP) 1 supp DAILY [place] 05/10/25 09:00 06/09/25 08:59 Lactulose (Constulose 20gm/ 30ml Udcup) 20 gm BID PRN PO CONSTIPATION 05/09/25 16:00 06/08/25 15:59 Magnesium Sulfate 50 ml @ 0 mls/hr PROTOCOL PRN IV low mag level 05/09/25 16:00 06/08/25 15:59 Morphine Sulfate (morPHINE 2MG SYG) 2 mg Q4H PRN IVP SEVERE PAIN (7-10) 05/09/25 15:30 05/16/25 15:29 Ondansetron HCl (zoFRAN 4MG INJ) 4 mg Q6H PRN IVP NAUSEA/VOMITING 05/09/25 15:30 06/08/25 15:29 Pantoprazole Sodium (PROTonix 40MG INJ) 40 mg DAILY IVP 05/10/25 09:00 06/09/25 08:59 05/10/25 08:30 40 MG Potassium Chloride 100 ml @ 100 mls/hr AD PRN IV POTASSIUM PROTOCOL 05/09/25 16:00 06/08/25 15:59 Potassium Chloride (K-Dur/Klor-Con 20meq) 20 meq AD PRN PO POTASSIUM PROTOCOL 05/09/25 16:00 06/08/25 15:59 Potassium Chloride (KCl 10% Elixir 20meq/15ml) 20 meq AD PRN PO POTASSIUM PROTOCOL 05/09/25 16:00 06/08/25 15:59 Sodium Chloride 1,000 ml @ 75 mls/hr [id number] IV 05/09/25 15:30 06/08/25 15:29 05/10/25 16:33 75 MLS/HR Diagnostics / Radiology: [COPY/PASTE HERE IF NO REPORTS PLEASE DELETE SECTION] Assessment: Hematochezia Acute blood loss anemia Abnormal imaging revealing pelvic mass Plan: Obtain pelvic MRI Pending the above, plan for colonoscopy to follow Continue GI prophylaxis Advance diet as tolerated Avoid NSAIDs Antireflux measures Monitor H&H and transfuse as needed Call with questions, concerns or change in clinical status Patient to follow-up at clinic post discharge Thank you for this consult ELIZABETH KHANP May 10, 2025 17:57
[2025-05-10] MEDS: PoTASSium chloRIDE 20MEQ ER 20 MEQ ERTAB PO PRN (18:06)
[2025-05-11] VITALS (8 sets, daily range): BP systolic 98–117; BP diastolic 50–69; PULSE 82–104; RESP 16–18; TEMP 99.6–102.8; O2SAT 96–97
--- NOTE | 2025-05-11 06:59 | HMCIMG ---
EXAMINATION: ULTRASOUND OF THE ABDOMEN (LIMITED) WITH COLOR DOPPLER. CLINICAL HISTORY: Hepatomegaly. COMPARISON: CT abdomen and pelvis with contrast dated 05/09/2025. TECHNIQUE: Real-time grayscale ultrasound images of the abdomen. In addition, color Doppler is medically necessary to perform in order to evaluate vascularity and blood flow. FINDINGS: Liver: Bulky in caliber, the right hepatic lobe measures 20.0 cm in the craniocaudal dimension. There is increased echogenicity of the hepatic parenchyma. There is no focal hepatic abnormality or intrahepatic biliary ductal dilatation. There is normal spectral Doppler of the main portal vein. Gallbladder: Within normal limits with normal wall thickness (0.16 cm). No hyperemia or pericholecystic free fluid. There is no cholelithiasis. Common bile duct is normal in caliber, measuring 0.35 cm. Pancreas: Normal in caliber and echotexture. No calcification or dilated pancreatic duct. The right kidney is normal in caliber, the right kidney measures 10.6 x 3.9 x 3.8 cm in craniocaudal, AP, and transverse dimensions respectively. There is normal renal cortical thickness, and cortical echogenicity. There is no renal calculus or hydronephrosis. There is heterogenous mass in the mid abdomen area that measures 13.3 x 8.1 x 13.0 cm with vascularity. IMPRESSION: Hepatomegaly with hepatic steatosis. Heterogenous mass in the abdomen. On comparison with the prior CT the mass is arising from the uterus. Recommend MRI pelvis with contrast. /[place]
[2025-05-11 08:18] LABS: ASPARTATE AMINOTRANSFERASE 21.0 U/L (10-37); CREATININE 0.9 mg/dL (0.5-1.0); GLOMERULAR FILTR. RATE CALC 77.0 mL/min (>90); GLUCOSE,RANDOM 117.0 mg/dL (70-105); SODIUM SERUM 135.0 mmol/L (136-145); TOTAL PROTEIN, SERUM 7.0 g/dL (6.0-8.3); UREA NITROGEN, BLOOD 8.0 mg/dL (7-18)
[2025-05-11 09:01] LABS: IMMATURE GRANULOCYTE ABSOLUTE 0.05 K/uL (0-1); NUCLEATED RED BLOOD CELLS 0.0 % (0.0-0.19); PLATELET COUNT (AUTO) 261 K/uL (130-400); RED BLOOD CELL COUNT(AUTO) 2.95 MIL/uL (4.00-5.50); RED CELL DISTRIBUTION WIDTH 13.8 % (11.0-15.5); WHITE BLOOD COUNT (AUTO) 10.5 K/uL (4.8-10.8)
[2025-05-11 12:24] LABS: APPEARANCE,URINE CLOUDY (CLEAR); GLUCOSE, URINE (UA) NEGATIVE (NEGATIVE); LEUKOCYTE ESTERASE ,URINE 250 Leu/uL (NEGATIVE); NITRATE,URINE NEGATIVE (NEGATIVE); OCCULT BLOOD,URINE LARGE (NEGATIVE)
[2025-05-11 12:25] LABS: ADD UA MICROSCOPIC YES
[2025-05-11 12:29] LABS: SQUAMOUS EPITHELIAL CELL,UR MOD /HPF (0-2)
[2025-05-11 13:59] LABS: HEPATITIS A IGM ANTIBODY Non-Reactive (Nonreactive); HEPATITIS B CORE AB TOTAL Non-Reactive (Nonreactive); HEPATITIS B SURFACE ANTIBODY Negative (Reactive)
[2025-05-11] MEDS ORDERED: GADOTERATE MEGLUMINE 10 MMOL/20 ML VIAL IV ONE (14:33)
--- NOTE | 2025-05-11 16:12 | PN ---
[facility] PROGRESS NOTE Date of Service: May 11, 2025 Time of Service: 15:55 HISTORY OF PRESENT ILLNESS: This is a 50-year-old female that presents in ED with chief complaints of rectal bleed. onset since 5 days, severity of blood loss: moderate amount. Denies rectal pain, abd pain, suprapubic pain. Patient was diagnosed with hemorrhoids two days ago. Presented in ED two days ago with similar symptoms and was discharged with hydrocortisone acetate 25 mg suppository, reports taking medication was just started on Saturday evening. but this morning she was feeling dyspnea on exertion, headache, tired lightheaded and dizzy and decided to come to ED for further evaluation and treatment. ER workup was consistent with anemia secondary to blood loss from hemorrhoids. Patient never had her GI screening colonoscopy. She does reports she eats a lot of spicy foods on a daily basis and history of constipation. Labs reviewed WBCs 10.6 hemoglobin 9.8 hematocrit 30.3 chemistry unremarkable occult blood pending on admission SUBJECTIVE: 05/10/25: Patient was seen and evaluated in room 417. Patient reports of continuing rectal bleed. Patient denies rectal pain, abdominal pain, suprapubic pain. Patient denies fever, chills, dizziness, lightheadedness and shortness of breath. GI was consulted, will follow their recommendations. CT scan was done, results show - Large lobulated mass in the pelvis and right iliac fossa with an ill-defined interface with uterine fundus likely a large uterine subserosal fibroid, Bilateral ovarian dermoid cysts. Subserosal uterine fibroids with calcification, Mild pelvic free fluid, Mild hepatomegaly. 05/11/25: Patient was seen and evaluated in room 117. Patient reports of continuing rectal bleed but the amount is sccatn compared to the prior day. Patient report she had fever last night and her temperature in the morning was 100.4. Patient complains of diffuse abdominal tenderness. Patient denies chills, dizziness, lightheadedness and shortness of breath. USG abdomen showed hepatomegaly with hepatic steatosis and heterogenous mass in the abdomen. Pelvic MRI was done for further investigation. Urinalysis was positive for UTI REVIEW OF SYSTEMS REVIEW OF SYSTEMS CONSTITUTIONAL: Complains of fever, Denies chills, or night sweats. No u nintentional weight loss reported. NEUROLOGICAL: Denies headache, amaurosis fugax, motor weakness, sensory deficit, vertigo/spinning sensation, gait abnormalities, or tremors. ENT: No hearing loss, otalgia, otorrhea, rhinitis, rhinorrhea, hoarseness, or sore throat. CARDIOVASCULAR: Denies any exertional angina, dyspnea on exertion, orthopnea, paroxysmal nocturnal dyspnea, palpitations, life-threatening arrhythmias, claudication. PULMONARY: Denies any shortness of breath, cough, phlegm/sputum, hemoptysis, pleuritic chest pain. SLEEP: Denies morning headaches, daytime somnolence or napping. Denies difficulty falling asleep, staying asleep, waking from sleep. Denies knowledge of snoring. GASTROINTESTINAL: Denies any type of dysphagia to either liquids or solids. Denies nausea, vomiting, pyrosis, early satiety, abdominal pain, diarrhea, constipation, or changes in stool consistency or caliber. Denies coffee-ground emesis, hematemesis, hematochezia, or melanotic stools. GENITOURINARY: Denies frequency, urgency, nocturia, hematuria or incontinence (Storage/Irritative symptoms.) Low urinary stream, straining to void, urinary intermittency or hesitancy, splitting of the voiding stream, terminal dribbling. PHYSICAL EXAM GENERAL APPEARANCE: The patient is awake, alert, and oriented, in no acute cardiopulmonary distress. NEUROLOGICAL: Cranial nerves II-XII grossly intact. Motor is 5/5 in bilateral upper and lower extremities proximal to distal. No sensory deficits. HEENT: Face is symmetric. Pupils are equal and reactive. Extraocular movements are intact. NECK: Supple. No JVD. No thyromegaly. No submental, submandibular, pre- /postauricular, occipital or supraclavicular lymphadenopathy. CHEST: Normal chest expansion. No Telemetry. LUNGS: Absence of any rales, rhonchi or any wheezing. CARDIOVASCULAR: Regular. S1 and S2 normal. No appreciable rubs, murmurs or gallops. ABDOMEN: Diffuse abdominal tenderness. There is no rebound, voluntary guarding, or rigidity. : Deferred. No Mccormack. EXTREMITIES: Non-edematous and not cyanotic. No clubbing. Good capillary refill. SKIN: No skin breakdown. Vital Signs (last 8hr) Date Time Temp Pulse Resp B/P (MAP) Pulse Ox O2 Delivery O2 Flow Rate FiO2 05/11/25 15:39 100.6 89 18 106/62 100 Room Air 05/11/25 11:42 99.7 82 18 108/62 94 Room Air LABS: Laboratory: Test 05/11/25 11:20 05/11/25 09:18 05/11/25 04:58 05/10/25 13:15 Range/Units Urine Color LIGHT-ORANGE YELLOW Urine Appearance CLOUDY H CLEAR Urine pH 5.5 5.0-8.0 Urine Specific [place] 1.030 1.001-1.031 Urine Protein 50 H NEGATIVE mg/dL Urine Glucose (UA) NEGATIVE NEGATIVE mg/dL Urine Ketones 20 H NEGATIVE mg/dL Urine Occult Blood LARGE H NEGATIVE Urine Nitrate NEGATIVE NEGATIVE Urine Bilirubin NEGATIVE NEGATIVE mg/dL Urine Urobilinogen 0.2 0.2-1.0 mg/dL Urine Leukocyte Esterase 250 H NEGATIVE [place]/uL Urine RBC TNTC H 0-1 /HPF Urine WBC TNTC H 0-1 /HPF Urine Squamous Epithelial Cells MOD 0-2 /HPF Urine Bacteria Rare None Seen /HPF Urine HCG, Qualitative NEGATIVE NEGATIVE Lactic Acid Level 1.0 0.8-2.5 mmol/L C-Reactive Protein, Quantitative 171.60 H 0.5-3.0 mg/L Procalcitonin 0.90 H 0.05-0.5 ng/mL White Blood Count 10.5 4.8-10.8 K/uL Red Blood Count 2.95 L 4.00-5.50 MIL/uL Hemoglobin 8.7 L 12.0-16.0 g/dL Hematocrit 26.2 L 36-48 % Mean Corpuscular Volume 88.8 79-99 fL Mean Corpuscular Hemoglobin 29.5 27.0-33.0 pg Mean Corpuscular Hemoglobin Concent 33.2 32.0-36.0 g/dL Red Cell Distribution Width 13.8 11.0-15.5 % Platelet Count 261 130-400 K/uL Mean Platelet Volume 9.4 7.5-10.5 fL Immature Granulocyte % (Auto) 0.5 0-1 % Neutrophils (%) (Auto) 68.1 40.0-77.0 % Lymphocytes (%) (Auto) 19.8 L 21.0-51.0 % Monocytes (%) (Auto) 10.6 3.0-13.0 % Eosinophils (%) (Auto) 0.6 0.0-8.0 % Basophils (%) (Auto) 0.4 0.0-5.0 % Neutrophils # (Auto) 7.2 1.8-7.7 K/uL Lymphocytes # (Auto) 2.1 1.0-4.8 K/uL Monocytes # (Auto) 1.1 H 0.1-1.0 K/uL Eosinophils # (Auto) 0.06 0.00-0.70 K/uL Basophils # (Auto) 0.04 0.00-0.20 K/uL Absolute Immature Granulocyte (auto 0.05 0-1 K/uL Nucleated Red Blood Cells 0.0 0.0-0.19 % Sodium Level 135 L 136-145 mmol/L Potassium Level 3.6 3.5-5.1 mmol/L Chloride Level 100 L 101-111 mmol/L Carbon Dioxide Level 26 21-32 mmol/L Blood Urea Nitrogen 8 7-18 mg/dL Creatinine 0.9 0.5-1.0 mg/dL Glomerular Filtration Rate Calc 77 >90 mL/min Random Glucose 117 H 70-105 mg/dL Total Calcium 8.1 L 8.5-10.1 mg/dL Total Bilirubin 0.5 0.2-1.0 mg/dL Aspartate Amino Transf (AST/SGOT) 21 10-37 U/L Alanine Aminotransferase (ALT/SGPT) 16 12-78 U/L Alkaline Phosphatase 42 L 50-136 U/L Total Protein 7.0 6.0-8.3 g/dL Albumin 2.9 L 3.5-5.0 g/dL Reticulocyte Count (auto) 2.99655 H 0.42-2.23 % Immature Reticulocyte Fraction 27.80 H 0.18-0.48 % Iron Level 16 L 50-170 mcg/dL Total Iron Binding Capacity 368 250-450 mcg/dL Percent Iron Saturation 4.3 L 22-44 % Ferritin 36 15-150 ng/mL Vitamin B12 Level 446 193-986 pg/mL Hepatitis A IgM Antibody Non-Reactive Nonreactive Hepatitis B Surface Antigen. Non-Reactive Nonreactive Hepatitis B Surface Antibody. Negative L Reactive Hepatitis B Core Total Antibody. Non-Reactive Nonreactive Hepatitis C Antibody Non-Reactive Nonreactive Test 05/10/25 07:55 05/10/25 04:04 Range/Units Stool Occult Blood POSITIVE H NEGATIVE Magnesium Level 1.90 1.80-2.40 mg/dL Current Medications Medications (Trade) Dose Ordered Sig/Richar Route PRN Reason Start Time Stop Time Status Last Admin Dose Admin Acetaminophen (TYLenol 325MG TAB) 650 mg Q4H PRN PO TEMPERATURE GREATER THAN 101.5 05/09/25 15:30 06/08/25 15:29 Ceftriaxone Sodium (Rocephin 2gm Inj) 2 gm Q24H IVPB 05/11/25 15:00 05/21/25 14:59 Hydralazine HCl (APRESOLine 20MG INJ) 5 mg Q4H PRN IV ADMINISTER FOR SBP > 160 05/09/25 15:30 06/08/25 15:29 Hydrocortisone Acetate (anuSOL-HC 25MG SUPP) 1 supp DAILY OK 05/10/25 09:00 06/09/25 08:59 05/11/25 11:51 1 SUPP Lactulose (Constulose 20gm/ 30ml Udcup) 20 gm BID PRN PO CONSTIPATION 05/09/25 16:00 06/08/25 15:59 Magnesium Sulfate 50 ml @ 0 mls/hr PROTOCOL PRN IV low mag level 05/09/25 16:00 06/08/25 15:59 Morphine Sulfate (morPHINE 2MG SYG) 2 mg Q4H PRN IVP SEVERE PAIN (7-10) 05/09/25 15:30 05/16/25 15:29 Ondansetron HCl (zoFRAN 4MG INJ) 4 mg Q6H PRN IVP NAUSEA/VOMITING 05/09/25 15:30 06/08/25 15:29 Pantoprazole Sodium (PROTonix 40MG INJ) 40 mg DAILY IVP 05/10/25 09:00 06/09/25 08:59 05/11/25 10:13 40 MG Potassium Chloride 100 ml @ 100 mls/hr AD PRN IV POTASSIUM PROTOCOL 05/09/25 16:00 06/08/25 15:59 Potassium Chloride (K-Dur/Klor-Con 20meq) 20 meq AD PRN PO POTASSIUM PROTOCOL 05/09/25 16:00 06/08/25 15:59 05/10/25 18:06 20 MEQ Potassium Chloride (KCl 10% Elixir 20meq/15ml) 20 meq AD PRN PO POTASSIUM PROTOCOL 05/09/25 16:00 06/08/25 15:59 Sodium Chloride 1,000 ml @ 75 mls/hr [id number] IV 05/09/25 15:30 06/08/25 15:29 05/11/25 10:14 75 MLS/HR DIAGNOSTICS / RADIOLOGY: [facility] [address] [place] [address] IMAGING REPORT Signed PATIENT: JARET EGAN MR#: [id number] : 1975 SEX: F AGE: 50 LOCATION: 1MS ORDER 1233 STATUS: ADM IN REPORT#: [id number] SERVICE 1231 REASON: RUQ pain W/ hepatomegaly ORDERING PHYSICIAN: BRONSON GALVAN MD PROCEDURE: [id number] - US ABDOMINAL RUQ\LTD EXAMINATION: ULTRASOUND OF THE ABDOMEN (LIMITED) WITH COLOR DOPPLER. CLINICAL HISTORY: Hepatomegaly. COMPARISON: CT abdomen and pelvis with contrast dated 05/09/2025. TECHNIQUE: Real-time grayscale ultrasound images of the abdomen. In addition, color Doppler is medically necessary to perform in order to evaluate vascularity and blood flow. FINDINGS: Liver: Bulky in caliber, the right hepatic lobe measures 20.0 cm in the craniocaudal dimension. There is increased echogenicity of the hepatic parenchyma. There is no focal hepatic abnormality or intrahepatic biliary ductal dilatation. There is normal spectral Doppler of the main portal vein. Gallbladder: Within normal limits with normal wall thickness (0.16 cm). No hyperemia or pericholecystic free fluid. There is no cholelithiasis. Common bile duct is normal in caliber, measuring 0.35 cm. Pancreas: Normal in caliber and echotexture. No calcification or dilated pancreatic duct. The right kidney is normal in caliber, the right kidney measures 10.6 x 3.9 x 3.8 cm in craniocaudal, AP, and transverse dimensions respectively. There is normal renal cortical thickness, and cortical echogenicity. There is no renal calculus or hydronephrosis. There is heterogenous mass in the mid abdomen area that measures 13.3 x 8.1 x 13.0 cm with vascularity. IMPRESSION: Hepatomegaly with hepatic steatosis. Heterogenous mass in the abdomen. On comparison with the prior CT the mass is arising from the uterus. Recommend MRI pelvis with contrast. /[facility] DICTATED BY: BRANDY MCLEOD MD DATE: 05/11/25653 ELECTRONICALLY SIGNED BY: BRANDY MCLEOD MD DATE: 05/11/25653 ASSESSMENT: SIRS Rectal bleed POA Acute anemia secondary to blood loss POA Constipation PLAN: SIRS: * Vitals on 05/11/25 at 12:00 AM were temperature 102.7, Pulse 104, Blood pressure - 98/55 * Urinalysis done on 05/11/25 was cloudy, positive for leukocyte esterase, WBC- TNTC, RBC-TNTC * CT abdomen was ordered, result show Large lobulated mass in the pelvis and right iliac fossa with an ill-defined interface with uterine fundus likely a large uterine subserosal fibroid, Bilateral ovarian dermoid cysts. Subserosal uterine fibroids with calcification, Mild pelvic free fluid, Mild hepatomegaly. * USG was ordered which showed Hepatomegaly with hepatic steatosis. Heterogenous mass in the abdomen * Urine culture was ordered, pending results * Blood culture ordered pending results. * CRP, Procalcitonin, Lactic acid was ordered. * Started the patient on empiric antibiotic with Ceftriaxone 1gm on 05/11/25. Rectal bleed, POA: * Started on Intravenous Fluid NS at 75 mL/hour * GI was consulted, will follow their recommendations. * We will monitor H&H trend to keep hemoglobin above 7.0 * CT abdomen was ordered, result show Large lobulated mass in the pelvis and right iliac fossa with an ill-defined interface with uterine fundus likely a large uterine subserosal fibroid, Bilateral ovarian dermoid cysts. Subserosal uterine fibroids with calcification, Mild pelvic free fluid, Mild hepatomegaly . * USG was ordered which showed Hepatomegaly with hepatic steatosis. Heterogenous mass in the abdomen. * MRI pelvis was ordered to further investigate the heterogenous mass. * Started on Protonix 40 mg IV daily * Started on Zofran 4 mg IV every 6 hours. Acute anemia secondary to blood loss, POA: * On presentation Hemoglobin was 9.8, Hematocrit was 30.3 * Anemia panel was ordered, pending results. * Hemoglobin trends 9.8>8.7>8.8>8.7 * We will monitor H&H trend to keep hemoglobin above 7.0 Supportive measures: Tylenol 650 mg po every 4 hours for fever Hydralazine 5 mg IV every 4 hours systolic pressure > 160 Lactulose 20 gm PO BID PRN constipation DVT ppx, GI ppx. ATTESTATION BY PHYSICIAN I have seen and examined the patient. I reviewed the documentation, medical decision making, and treatment plan as noted by the resident physician above. I agree with the findings and plan of care. REHAN AVINA MD, SHAJI MD May 11, 2025 16:12
[2025-05-11] MEDS: PEG 3350/NA SULF,BICARB,CL/KCL 4000 ML SOLN PO STA (19:16)
--- NOTE | 2025-05-11 19:42 | PN ---
GASTROENTEROLOGY PROGRESS NOTE Date of Visit: May 11, 2025 Time of Visit: 19:42 Events / Notes: No acute events overnight. Patient had MRI of the pelvis however it is pending to be read. She is stable. Plan of care discussed. Review of Systems: CONSTITUTIONAL: No malaise or change in sensation of wellbeing. ENMT: No rhinorrhea, otorrhea, sinus pain, ear ache. CARDIOVASCULAR: No angina, palpitations, orthopnea or paroxysmal dyspnea. RESPIRATORY: No SOB. GASTROINTESTINAL: No abdominal pain, nausea, vomiting, diarrhea, hematemesis, melena or change in the patient's habitual bowel movements consistency/number. GENITOURINARY: No dysuria, hematuria or change in bladder continence. MUSCULOSKELETAL: No new muscle pain or decrease in muscular strength. No new joint swelling, redness or tenderness. SKIN: No new rash. Physical Exam: GEN: Awake, alert, oriented in person, time and place, and in no acute distress. HEENT: No sinus tenderness. Tympanic membranes were not examined. No rhinorrhea. Oral pharyngeal mucosa is pink, moist and within normal limits. Neck is supple with no cervical lymphadenopathy, thyromegaly or JVD. CHEST: Inspection, palpation and percussion of the chest were unremarkable. Lung auscultation revealed normal breath sounds bilaterally. CARDIAC: PMI is within normal limits. Heart sounds are regular. Normal S1, S2. No gallop or murmur. ABD: Soft, non-tender and not distended. No peritoneal signs on palpation. No organomegaly. Normal bowel sounds. EXT: No cyanosis or clubbing. No edema. SKIN: Intact. No rashes. JOINTS: No evidence of synovitis or acute arthritis. NEURO: Alert and oriented to name, place and person. Cranial nerve examination is unremarkable. No focal motor deficits. Normal speech. Gait is normal. Strength is normal. Vital Signs (last 8hr) Date Time Temp Pulse Resp B/P (MAP) Pulse Ox O2 Delivery O2 Flow Rate FiO2 05/11/25 15:39 100.6 89 18 106/62 100 Room Air Laboratory: [ ] Laboratory: Test 05/11/25 11:20 05/11/25 09:18 05/11/25 04:58 05/10/25 13:15 Range/Units Urine Color LIGHT-ORANGE YELLOW Urine Appearance CLOUDY H CLEAR Urine pH 5.5 5.0-8.0 Urine Specific [place] 1.030 1.001-1.031 Urine Protein 50 H NEGATIVE mg/dL Urine Glucose (UA) NEGATIVE NEGATIVE mg/dL Urine Ketones 20 H NEGATIVE mg/dL Urine Occult Blood LARGE H NEGATIVE Urine Nitrate NEGATIVE NEGATIVE Urine Bilirubin NEGATIVE NEGATIVE mg/dL Urine Urobilinogen 0.2 0.2-1.0 mg/dL Urine Leukocyte Esterase 250 H NEGATIVE [place]/uL Urine RBC TNTC H 0-1 /HPF Urine WBC TNTC H 0-1 /HPF Urine Squamous Epithelial Cells MOD 0-2 /HPF Urine Bacteria Rare None Seen /HPF Urine HCG, Qualitative NEGATIVE NEGATIVE Lactic Acid Level 1.0 0.8-2.5 mmol/L C-Reactive Protein, Quantitative 171.60 H 0.5-3.0 mg/L Procalcitonin 0.90 H 0.05-0.5 ng/mL White Blood Count 10.5 4.8-10.8 K/uL Red Blood Count 2.95 L 4.00-5.50 MIL/uL Hemoglobin 8.7 L 12.0-16.0 g/dL Hematocrit 26.2 L 36-48 % Mean Corpuscular Volume 88.8 79-99 fL Mean Corpuscular Hemoglobin 29.5 27.0-33.0 pg Mean Corpuscular Hemoglobin Concent 33.2 32.0-36.0 g/dL Red Cell Distribution Width 13.8 11.0-15.5 % Platelet Count 261 130-400 K/uL Mean Platelet Volume 9.4 7.5-10.5 fL Immature Granulocyte % (Auto) 0.5 0-1 % Neutrophils (%) (Auto) 68.1 40.0-77.0 % Lymphocytes (%) (Auto) 19.8 L 21.0-51.0 % Monocytes (%) (Auto) 10.6 3.0-13.0 % Eosinophils (%) (Auto) 0.6 0.0-8.0 % Basophils (%) (Auto) 0.4 0.0-5.0 % Neutrophils # (Auto) 7.2 1.8-7.7 K/uL Lymphocytes # (Auto) 2.1 1.0-4.8 K/uL Monocytes # (Auto) 1.1 H 0.1-1.0 K/uL Eosinophils # (Auto) 0.06 0.00-0.70 K/uL Basophils # (Auto) 0.04 0.00-0.20 K/uL Absolute Immature Granulocyte (auto 0.05 0-1 K/uL Nucleated Red Blood Cells 0.0 0.0-0.19 % Sodium Level 135 L 136-145 mmol/L Potassium Level 3.6 3.5-5.1 mmol/L Chloride Level 100 L 101-111 mmol/L Carbon Dioxide Level 26 21-32 mmol/L Blood Urea Nitrogen 8 7-18 mg/dL Creatinine 0.9 0.5-1.0 mg/dL Glomerular Filtration Rate Calc 77 >90 mL/min Random Glucose 117 H 70-105 mg/dL Total Calcium 8.1 L 8.5-10.1 mg/dL Total Bilirubin 0.5 0.2-1.0 mg/dL Aspartate Amino Transf (AST/SGOT) 21 10-37 U/L Alanine Aminotransferase (ALT/SGPT) 16 12-78 U/L Alkaline Phosphatase 42 L 50-136 U/L Total Protein 7.0 6.0-8.3 g/dL Albumin 2.9 L 3.5-5.0 g/dL Reticulocyte Count (auto) 2.70656 H 0.42-2.23 % Immature Reticulocyte Fraction 27.80 H 0.18-0.48 % Iron Level 16 L 50-170 mcg/dL Total Iron Binding Capacity 368 250-450 mcg/dL Percent Iron Saturation 4.3 L 22-44 % Ferritin 36 15-150 ng/mL Vitamin B12 Level 446 193-986 pg/mL Hepatitis A IgM Antibody Non-Reactive Nonreactive Hepatitis B Surface Antigen. Non-Reactive Nonreactive Hepatitis B Surface Antibody. Negative L Reactive Hepatitis B Core Total Antibody. Non-Reactive Nonreactive Hepatitis C Antibody Non-Reactive Nonreactive Test 05/10/25 07:55 05/10/25 04:04 Range/Units Stool Occult Blood POSITIVE H NEGATIVE Magnesium Level 1.90 1.80-2.40 mg/dL Current Medications Medications (Trade) Dose Ordered Sig/Richar Route PRN Reason Start Time Stop Time Status Last Admin Dose Admin Acetaminophen (TYLenol 325MG TAB) 650 mg Q4H PRN PO TEMPERATURE GREATER THAN 101.5 05/09/25 15:30 06/08/25 15:29 Ceftriaxone Sodium (Rocephin 2gm Inj) 2 gm Q24H IVPB 05/11/25 15:00 05/21/25 14:59 05/11/25 16:17 2 GM Hydralazine HCl (APRESOLine 20MG INJ) 5 mg Q4H PRN IV ADMINISTER FOR SBP > 160 05/09/25 15:30 06/08/25 15:29 Hydrocortisone Acetate (anuSOL-HC 25MG SUPP) 1 supp DAILY [place] 05/10/25 09:00 06/09/25 08:59 05/11/25 11:51 1 SUPP Lactulose (Constulose 20gm/ 30ml Udcup) 20 gm BID PRN PO CONSTIPATION 05/09/25 16:00 06/08/25 15:59 Magnesium Sulfate 50 ml @ 0 mls/hr PROTOCOL PRN IV low mag level 05/09/25 16:00 06/08/25 15:59 Morphine Sulfate (morPHINE 2MG SYG) 2 mg Q4H PRN IVP SEVERE PAIN (7-10) 05/09/25 15:30 05/16/25 15:29 Ondansetron HCl (zoFRAN 4MG INJ) 4 mg Q6H PRN IVP NAUSEA/VOMITING 05/09/25 15:30 06/08/25 15:29 Pantoprazole Sodium (PROTonix 40MG INJ) 40 mg DAILY IVP 05/10/25 09:00 06/09/25 08:59 05/11/25 10:13 40 MG Polyethylene Glycol/ Electrolytes (Golytely/Colyte Soln) 4,000 ml ONCE STAT PO 05/11/25 17:44 05/11/25 17:47 DC 05/11/25 19:16 4,000 ML Potassium Chloride 100 ml @ 100 mls/hr AD PRN IV POTASSIUM PROTOCOL 05/09/25 16:00 06/08/25 15:59 Potassium Chloride (K-Dur/Klor-Con 20meq) 20 meq AD PRN PO POTASSIUM PROTOCOL 05/09/25 16:00 06/08/25 15:59 05/10/25 18:06 20 MEQ Potassium Chloride (KCl 10% Elixir 20meq/15ml) 20 meq AD PRN PO POTASSIUM PROTOCOL 05/09/25 16:00 06/08/25 15:59 Sodium Chloride 1,000 ml @ 75 mls/hr [id number] IV 05/09/25 15:30 06/08/25 15:29 05/11/25 10:14 75 MLS/HR Diagnostics / Radiology: [COPY/PASTE HERE IF NO REPORTS PLEASE DELETE SECTION] Assessment: Hematochezia Acute blood loss anemia Abnormal imaging revealing pelvic mass Plan: Colonoscopy in am Continue GI prophylaxis Advance diet as tolerated Avoid NSAIDs Antireflux measures Monitor H&H and transfuse as needed Call with questions, concerns or change in clinical status Patient to follow-up at clinic post discharge Thank you for this consult ELIZABETH KHAN [employer] May 11, 2025 19:42
--- NOTE | 2025-05-11 22:25 | HMCIMG ---
EXAM: MRI PELVIS WITH AND WITHOUT INTRAVENOUS CONTRAST Technique: Multiplanar, multisequence magnetic resonance imaging of the pelvis was performed before and after intravenous contrast administration, including axial, sagittal, and coronal T1- and T2-weighted sequences with fat-suppressed imaging, diffusion-weighted imaging, and dySnamic post-contrast acquisitions. Contrast: Clariscan (gadoterate meglumine) 0.5 mmol/mL, total 17 mL administered intravenously. Clinical Information: History of pelvic mass. Findings: Uterus: Uterus is enlarged, and a well-circumscribed subserosal leiomyoma arises from the right fundal uterine wall measuring 6.3 cm with internal cystic degeneration, chronic hemorrhagic components, and coarse calcifications; the lesion abuts and appears to communicate with the uterine fundus on a broad base. 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 Recommend CT-PET and surgical consultation for further workup. Cervix: Multiple Nabothian cysts are present without suspicious enhancing mass. Ovaries and adnexa: Left ovary contains a 4.1 cm dermoid cyst with macroscopic fat and internal complexity; right ovary contains a 3.4 cm dermoid cyst with similar characteristics; no suspicious enhancing adnexal mass is identified. Pelvic peritoneum and fluid: Minimal free fluid is present in the pelvis. Urinary bladder: Bladder contour and wall thickness are normal without intraluminal mass. Bowel: Visualized rectosigmoid and small bowel loops are unremarkable without obstruction. Lymph nodes: No pathologically enlarged pelvic lymph nodes are identified. Vasculature: Pelvic vessels are normal in course and caliber. Abdominal wall and soft tissues: No focal soft-tissue abnormality is identified. Osseous structures: No aggressive osseous lesion is identified. 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 Recommend CT-PET and surgical consultation for further workup. * Enlarged uterus with a second right side fundal subserosal leiomyoma measuring 6.3 cm demonstrating cystic degeneration, chronic hemorrhagic components, and calcifications; imaging features are most consistent with a benign fibroid. Gynecology consultation is recommended for management discussion; surgical options (myomectomy or hysterectomy) may be considered based on symptoms and fertility plans. * Bilateral ovarian dermoid cysts measuring 4.1 cm on the left and 3.4 cm on the right without imaging features of malignant transformation. Gynecology follow-up is recommended; elective surgical removal can be considered if symptomatic or enlarging. * Moderate pelvic free fluid and multiple cervical Nabothian cysts. * No suspicious pelvic lymphadenopathy or other pelvic mass. * Comparison: Compared with computed tomography of the abdomen and pelvis with intravenous contrast dated 05/09/2025 15:25 EST, the very large fundal fibroid mass and large lobulated right fundal subserosal mass corresponds to a subserosal uterine fibroid, and bilateral ovarian dermoid cysts and mild pelvic free fluid are again demonstrated without new suspicious findings. /[place]
[2025-05-12] VITALS (15 sets, daily range): BP systolic 92–104; BP diastolic 47–64; PULSE 73–88; RESP 15–18; TEMP 97–99.5; O2SAT 95
[2025-05-12 07:34] LABS: IMMATURE GRANULOCYTE ABSOLUTE 0.06 K/uL (0-1); NUCLEATED RED BLOOD CELLS 0.0 % (0.0-0.19); PLATELET COUNT (AUTO) 247 K/uL (130-400); RED BLOOD CELL COUNT(AUTO) 2.66 MIL/uL (4.00-5.50); RED CELL DISTRIBUTION WIDTH 13.7 % (11.0-15.5); WHITE BLOOD COUNT (AUTO) 10.7 K/uL (4.8-10.8)
[2025-05-12 07:46] LABS: CREATININE 0.8 mg/dL (0.5-1.0); GLOMERULAR FILTR. RATE CALC 89.0 mL/min (>90); GLUCOSE,RANDOM 122.0 mg/dL (70-105); SODIUM SERUM 138.0 mmol/L (136-145); UREA NITROGEN, BLOOD 7.0 mg/dL (7-18)
[2025-05-12] MEDS ORDERED: LIDOCAINE PF 100MG/5ML (2%) SYRINGE 5ML ONE (10:43)
--- NOTE | 2025-05-12 11:41 | PN ---
[facility] PROGRESS NOTE Date of Service: May 12, 2025 Time of Service: 11:23 HISTORY OF PRESENT ILLNESS: This is a 50-year-old female that presents in ED with chief complaints of rectal bleed. onset since 5 days, severity of blood loss: moderate amount. Denies rectal pain, abd pain, suprapubic pain. Patient was diagnosed with hemorrhoids two days ago. Presented in ED two days ago with similar symptoms and was discharged with hydrocortisone acetate 25 mg suppository, reports taking medication was just started on Saturday evening. but this morning she was feeling dyspnea on exertion, headache, tired lightheaded and dizzy and decided to come to ED for further evaluation and treatment. ER workup was consistent with anemia secondary to blood loss from hemorrhoids. Patient never had her GI screening colonoscopy. She does reports she eats a lot of spicy foods on a daily basis and history of constipation. Labs reviewed WBCs 10.6 hemoglobin 9.8 hematocrit 30.3 chemistry unremarkable occult blood pending on admission SUBJECTIVE: 05/10/25: Patient was seen and evaluated in room 417. Patient reports of continuing rectal bleed. Patient denies rectal pain, abdominal pain, suprapubic pain. Patient denies fever, chills, dizziness, lightheadedness and shortness of breath. GI was consulted, will follow their recommendations. CT scan was done, results show - Large lobulated mass in the pelvis and right iliac fossa with an ill-defined interface with uterine fundus likely a large uterine subserosal fibroid, Bilateral ovarian dermoid cysts. Subserosal uterine fibroids with calcification, Mild pelvic free fluid, Mild hepatomegaly. 05/11/25: Patient was seen and evaluated in room 117. Patient reports of continuing rectal bleed but the amount is scant compared to the prior day. Patient report she had fever last night and her temperature in the morning was 100.4. Patient complains of diffuse abdominal tenderness. Patient denies chills, dizziness, lightheadedness and shortness of breath. USG abdomen showed hepatomegaly with hepatic steatosis and heterogenous mass in the abdomen. Pelvic MRI was done for further investigation. Urinalysis was positive for UTI 05/12/25: Patient was seen and evaluated in room 117. Patient reports of continuing rectal bleed but the frequency has decreased a lot from admission. Patient denies any fever, chills dizziness, lightheadedness and shortness of breath today. Continuing on Rocephin for UTI. She is scheduled for colonoscopy today. REVIEW OF SYSTEMS REVIEW OF SYSTEMS CONSTITUTIONAL: Complains of fever, Denies chills, or night sweats. No unintentional weight loss reported. NEUROLOGICAL: Denies headache, amaurosis fugax, motor weakness, sensory deficit, vertigo/spinning sensation, gait abnormalities, or tremors. ENT: No hearing loss, otalgia, otorrhea, rhinitis, rhinorrhea, hoarseness, or sore throat. CARDIOVASCULAR: Denies any exertional angina, dyspnea on exertion, orthopnea, paroxysmal nocturnal dyspnea, palpitations, life-threatening arrhythmias, claudication. PULMONARY: Denies any shortness of breath, cough, phlegm/sputum, hemoptysis, pleuritic chest pain. SLEEP: Denies morning headaches, daytime somnolence or napping. Denies difficulty falling asleep, staying asleep, waking from sleep. Denies knowledge of snoring. GASTROINTESTINAL: Denies any type of dysphagia to either liquids or solids. Denies nausea, vomiting, pyrosis, early satiety, abdominal pain, diarrhea, constipation, or changes in stool consistency or caliber. Denies coffee-ground emesis, hematemesis, hematochezia, or melanotic stools. GENITOURINARY: Denies frequency, urgency, nocturia, hematuria or incontinence (Storage/Irritative symptoms.) Low urinary stream, straining to void, urinary intermittency or hesitancy, splitting of the voiding stream, terminal dribbling. PHYSICAL EXAM GENERAL APPEARANCE: The patient is awake, alert, and oriented, in no acute cardiopulmonary distress. NEUROLOGICAL: Cranial nerves II-XII grossly intact. Motor is 5/5 in bilateral upper and lower extremities proximal to distal. No sensory deficits. HEENT: Face is symmetric. Pupils are equal and reactive. Extraocular movements are intact. NECK: Supple. No JVD. No thyromegaly. No submental, submandibular, pre- /postauricular, occipital or supraclavicular lymphadenopathy. CHEST: Normal chest expansion. No Telemetry. LUNGS: Absence of any rales, rhonchi or any wheezing. CARDIOVASCULAR: Regular. S1 and S2 normal. No appreciable rubs, murmurs or gallops. ABDOMEN: Diffuse abdominal tenderness. There is no rebound, voluntary guarding, or rigidity. : Deferred. No Mccormack. EXTREMITIES: Non-edematous and not cyanotic. No clubbing. Good capillary refill. SKIN: No skin breakdown. Vital Signs (last 8hr) Date Time Temp Pulse Resp B/P (MAP) Pulse Ox O2 Delivery O2 Flow Rate FiO2 05/12/25 10:55 97.0 80 15 97/52 100 Nonrebreathing Mask 10.0 05/12/25 10:45 Mask 05/12/25 10:45 Mask 10.0 05/12/25 08:00 81 18 93/55 95 Room Air 05/12/25 03:55 98.4 74 17 98/54 99 Room Air LABS: Laboratory: Test 05/12/25 07:21 05/11/25 11:20 05/11/25 09:18 05/11/25 04:58 Range/Units White Blood Count 10.7 4.8-10.8 K/uL Red Blood Count 2.66 L 4.00-5.50 MIL/uL Hemoglobin 7.6 L 12.0-16.0 g/dL Hematocrit 23.7 L 36-48 % Mean Corpuscular Volume 89.1 79-99 fL Mean Corpuscular Hemoglobin 28.6 27.0-33.0 pg Mean Corpuscular Hemoglobin Concent 32.1 32.0-36.0 g/dL Red Cell Distribution Width 13.7 11.0-15.5 % Platelet Count 247 130-400 K/uL Mean Platelet Volume 9.0 7.5-10.5 fL Immature Granulocyte % (Auto) 0.6 0-1 % Neutrophils (%) (Auto) 68.9 40.0-77.0 % Lymphocytes (%) (Auto) 19.2 L 21.0-51.0 % Monocytes (%) (Auto) 10.3 3.0-13.0 % Eosinophils (%) (Auto) 0.8 0.0-8.0 % Basophils (%) (Auto) 0.2 0.0-5.0 % Neutrophils # (Auto) 7.3 1.8-7.7 K/uL Lymphocytes # (Auto) 2.1 1.0-4.8 K/uL Monocytes # (Auto) 1.1 H 0.1-1.0 K/uL Eosinophils # (Auto) 0.09 0.00-0.70 K/uL Basophils # (Auto) 0.02 0.00-0.20 K/uL Absolute Immature Granulocyte (auto 0.06 0-1 K/uL Nucleated Red Blood Cells 0.0 0.0-0.19 % Sodium Level 138 136-145 mmol/L Potassium Level 3.2 L 3.5-5.1 mmol/L Chloride Level 103 101-111 mmol/L Carbon Dioxide Level 28 21-32 mmol/L Blood Urea Nitrogen 7 7-18 mg/dL Creatinine 0.8 0.5-1.0 mg/dL Glomerular Filtration Rate Calc 89 >90 mL/min Random Glucose 122 H 70-105 mg/dL Total Calcium 7.6 L 8.5-10.1 mg/dL Urine Color LIGHT-ORANGE YELLOW Urine Appearance CLOUDY H CLEAR Urine pH 5.5 5.0-8.0 Urine Specific [place] 1.030 1.001-1.031 Urine Protein 50 H NEGATIVE mg/dL Urine Glucose (UA) NEGATIVE NEGATIVE mg/dL Urine Ketones 20 H NEGATIVE mg/dL Urine Occult Blood LARGE H NEGATIVE Urine Nitrate NEGATIVE NEGATIVE Urine Bilirubin NEGATIVE NEGATIVE mg/dL Urine Urobilinogen 0.2 0.2-1.0 mg/dL Urine Leukocyte Esterase 250 H NEGATIVE [place]/uL Urine RBC TNTC H 0-1 /HPF Urine WBC TNTC H 0-1 /HPF Urine Squamous Epithelial Cells MOD 0-2 /HPF Urine Bacteria Rare None Seen /HPF Urine HCG, Qualitative NEGATIVE NEGATIVE Lactic Acid Level 1.0 0.8-2.5 mmol/L C-Reactive Protein, Quantitative 171.60 H 0.5-3.0 mg/L Procalcitonin 0.90 H 0.05-0.5 ng/mL Total Bilirubin 0.5 0.2-1.0 mg/dL Aspartate Amino Transf (AST/SGOT) 21 10-37 U/L Alanine Aminotransferase (ALT/SGPT) 16 12-78 U/L Alkaline Phosphatase 42 L 50-136 U/L Total Protein 7.0 6.0-8.3 g/dL Albumin 2.9 L 3.5-5.0 g/dL Test 05/10/25 13:15 Range/Units Reticulocyte Count (auto) 2.56611 H 0.42-2.23 % Immature Reticulocyte Fraction 27.80 H 0.18-0.48 % Iron Level 16 L 50-170 mcg/dL Total Iron Binding Capacity 368 250-450 mcg/dL Percent Iron Saturation 4.3 L 22-44 % Ferritin 36 15-150 ng/mL Vitamin B12 Level 446 193-986 pg/mL Hepatitis A IgM Antibody Non-Reactive Nonreactive Hepatitis B Surface Antigen. Non-Reactive Nonreactive Hepatitis B Surface Antibody. Negative L Reactive Hepatitis B Core Total Antibody. Non-Reactive Nonreactive Hepatitis C Antibody Non-Reactive Nonreactive Current Medications Medications (Trade) Dose Ordered Sig/Richar Route PRN Reason Start Time Stop Time Status Last Admin Dose Admin Acetaminophen (TYLenol 325MG TAB) 650 mg Q4H PRN PO TEMPERATURE GREATER THAN 101.5 05/09/25 15:30 06/08/25 15:29 05/11/25 21:44 650 MG Ceftriaxone Sodium (Rocephin 2gm Inj) 2 gm Q24H IVPB 05/11/25 15:00 05/21/25 14:59 05/11/25 16:17 2 GM Hydralazine HCl (APRESOLine 20MG INJ) 5 mg Q4H PRN IV ADMINISTER FOR SBP > 160 05/09/25 15:30 06/08/25 15:29 Hydrocortisone Acetate (anuSOL-HC 25MG SUPP) 1 supp DAILY DE 05/10/25 09:00 06/09/25 08:59 05/11/25 11:51 1 SUPP Lactulose (Constulose 20gm/ 30ml Udcup) 20 gm BID PRN PO CONSTIPATION 05/09/25 16:00 06/08/25 15:59 Magnesium Sulfate 50 ml @ 0 mls/hr PROTOCOL PRN IV low mag level 05/09/25 16:00 06/08/25 15:59 Morphine Sulfate (morPHINE 2MG SYG) 2 mg Q4H PRN IVP SEVERE PAIN (7-10) 05/09/25 15:30 05/16/25 15:29 Ondansetron HCl (zoFRAN 4MG INJ) 4 mg Q6H PRN IVP NAUSEA/VOMITING 05/09/25 15:30 06/08/25 15:29 Pantoprazole Sodium (PROTonix 40MG INJ) 40 mg DAILY IVP 05/10/25 09:00 06/09/25 08:59 05/11/25 10:13 40 MG Polyethylene Glycol/ Electrolytes (Golytely/Colyte Soln) 4,000 ml ONCE STAT PO 05/11/25 17:44 05/11/25 17:47 DC 05/11/25 19:16 4,000 ML Potassium Chloride 100 ml @ 100 mls/hr AD PRN IV POTASSIUM PROTOCOL 05/09/25 16:00 06/08/25 15:59 Potassium Chloride (K-Dur/Klor-Con 20meq) 20 meq AD PRN PO POTASSIUM PROTOCOL 05/09/25 16:00 06/08/25 15:59 05/10/25 18:06 20 MEQ Potassium Chloride (KCl 10% Elixir 20meq/15ml) 20 meq AD PRN PO POTASSIUM PROTOCOL 05/09/25 16:00 06/08/25 15:59 Sodium Chloride 1,000 ml @ 75 mls/hr [id number] IV 05/09/25 15:30 06/08/25 15:29 05/11/25 21:43 75 MLS/HR DIAGNOSTICS / RADIOLOGY: [address] [address] IMAGING REPORT Addendum PATIENT: JARET EGAN MR#: [id number] : 1975 SEX: F AGE: 50 LOCATION: 1MS ORDER 56 STATUS: ADM IN REPORT#: [id number] SERVICE [id number] REASON: pelvic mass ORDERING PHYSICIAN: ELIZABETH KHAN GIS MAPPING TECHNICIAN PROCEDURE: PELV WWO - MR PELVIS W/WO CON ADDENDUM REPORT ADDENDUM: Results were shared by telephone at 11:34 pm on 05-11-25 and acknowledged by Patient Nurse Ms. Nemo Hancock. /[facility] EXAM: MRI PELVIS WITH AND WITHOUT INTRAVENOUS CONTRAST Technique: Multiplanar, multisequence magnetic resonance imaging of the pelvis was performed before and after intravenous contrast administration, including axial, sagittal, and coronal T1- and T2-weighted sequences with fat-suppressed imaging, diffusion-weighted imaging, and dySnamic post-contrast acquisitions. Contrast: Clariscan (gadoterate meglumine) 0.5 mmol/mL, total 17 mL administered intravenously. Clinical Information: History of pelvic mass. Findings: Uterus: Uterus is enlarged, and a well-circumscribed subserosal leiomyoma arises from the right fundal uterine wall measuring 6.3 cm with internal cystic degeneration, chronic hemorrhagic components, and coarse calcifications; the lesion abuts and appears to communicate with the uterine fundus on a broad base. 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 Recommend CT-PET and surgical consultation for further workup. Cervix: Multiple Nabothian cysts are present without suspicious enhancing mass. Ovaries and adnexa: Left ovary contains a 4.1 cm dermoid cyst with macroscopic fat and internal complexity; right ovary contains a 3.4 cm dermoid cyst with similar characteristics; no suspicious enhancing adnexal mass is identified. Pelvic peritoneum and fluid: Minimal free fluid is present in the pelvis. Urinary bladder: Bladder contour and wall thickness are normal without intraluminal mass. Bowel: Visualized rectosigmoid and small bowel loops are unremarkable without obstruction. Lymph nodes: No pathologically enlarged pelvic lymph nodes are identified. Vasculature: Pelvic vessels are normal in course and caliber. Abdominal wall and soft tissues: No focal soft-tissue abnormality is identified. Osseous structures: No aggressive osseous lesion is identified. 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 Recommend CT-PET and surgical consultation for further workup. * Enlarged uterus with a second right side fundal subserosal leiomyoma measuring 6.3 cm demonstrating cystic degeneration, chronic hemorrhagic components, and calcifications; imaging features are most consistent with a benign fibroid. Gynecology consultation is recommended for management discussion; surgical options (myomectomy or hysterectomy) may be considered based on symptoms and fertility plans. * Bilateral ovarian dermoid cysts measuring 4.1 cm on the left and 3.4 cm on the right without imaging features of malignant transformation. Gynecology follow-up is recommended; elective surgical removal can be considered if symptomatic or enlarging. * Moderate pelvic free fluid and multiple cervical Nabothian cysts. * No suspicious pelvic lymphadenopathy or other pelvic mass. * Comparison: Compared with computed tomography of the abdomen and pelvis with intravenous contrast dated 05/09/2025 15:25 EST, the very large fundal fibroid mass and large lobulated right fundal subserosal mass corresponds to a subserosal uterine fibroid, and bilateral ovarian dermoid cysts and mild pelvic free fluid are again demonstrated without new suspicious findings. /[place] DICTATED BY: MANDY NOWAK MD DATE: 05/11/252345 ELECTRONICALLY SIGNED BY: DATE: EXAM: MRI PELVIS WITH AND WITHOUT INTRAVENOUS CONTRAST Technique: Multiplanar, multisequence magnetic resonance imaging of the pelvis was performed before and after intravenous contrast administration, including axial, sagittal, and coronal T1- and T2-weighted sequences with fat-suppressed imaging, diffusion-weighted imaging, and dySnamic post-contrast acquisitions. Contrast: Clariscan (gadoterate meglumine) 0.5 mmol/mL, total 17 mL administered intravenously. Clinical Information: History of pelvic mass. Findings: Uterus: Uterus is enlarged, and a well-circumscribed subserosal leiomyoma arises from the right fundal uterine wall measuring 6.3 cm with internal cystic degeneration, chronic hemorrhagic components, and coarse calcifications; the lesion abuts and appears to communicate with the uterine fundus on a broad base. 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 Recommend CT-PET and surgical consultation for further workup. Cervix: Multiple Nabothian cysts are present without suspicious enhancing mass. Ovaries and adnexa: Left ovary contains a 4.1 cm dermoid cyst with macroscopic fat and internal complexity; right ovary contains a 3.4 cm dermoid cyst with similar characteristics; no suspicious enhancing adnexal mass is identified. Pelvic peritoneum and fluid: Minimal free fluid is present in the pelvis. Urinary bladder: Bladder contour and wall thickness are normal without intraluminal mass. Bowel: Visualized rectosigmoid and small bowel loops are unremarkable without obstruction. Lymph nodes: No pathologically enlarged pelvic lymph nodes are identified. Vasculature: Pelvic vessels are normal in course and caliber. Abdominal wall and soft tissues: No focal soft-tissue abnormality is identified. Osseous structures: No aggressive osseous lesion is identified. 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 Recommend CT-PET and surgical consultation for further workup. * Enlarged uterus with a second right side fundal subserosal leiomyoma measuring 6.3 cm demonstrating cystic degeneration, chronic hemorrhagic components, and calcifications; imaging features are most consistent with a benign fibroid. Gynecology consultation is recommended for management discussion; surgical options (myomectomy or hysterectomy) may be considered based on symptoms and fertility plans. * Bilateral ovarian dermoid cysts measuring 4.1 cm on the left and 3.4 cm on the right without imaging features of malignant transformation. Gynecology follow-up is recommended; elective surgical removal can be considered if symptomatic or enlarging. * Moderate pelvic free fluid and multiple cervical Nabothian cysts. * No suspicious pelvic lymphadenopathy or other pelvic mass. * Comparison: Compared with computed tomography of the abdomen and pelvis with intravenous contrast dated 05/09/2025 15:25 EST, the very large fundal fibroid mass and large lobulated right fundal subserosal mass corresponds to a subserosal uterine fibroid, and bilateral ovarian dermoid cysts and mild pelvic free fluid are again demonstrated without new suspicious findings. /[place] DICTATED BY: MANDY NOWAK MD DATE: 05/11/252324 ELECTRONICALLY SIGNED BY: MANDY NOWAK MD DATE: 05/11/252324 ASSESSMENT: SIRS Rectal bleed POA Acute anemia secondary to blood loss POA Possible leiomyosarcoma, POA Uterine Fibroid, POA Constipation PLAN: SIRS: * Vitals on 05/11/25 at 12:00 AM were temperature 102.7, Pulse 104, Blood pressure - 98/55 * Urinalysis done on 05/11/25 was cloudy, positive for leukocyte esterase, WBC- TNTC, RBC-TNTC * CT abdomen was ordered, result show Large lobulated mass in the pelvis and right iliac fossa with an ill-defined interface with uterine fundus likely a large uterine subserosal fibroid, Bilateral ovarian dermoid cysts. Subserosal uterine fibroids with calcification, Mild pelvic free fluid, Mild hepatomegaly. * USG was ordered which showed Hepatomegaly with hepatic steatosis. Heterogenous mass in the abdomen * Urine culture was ordered, pending results * Blood culture ordered pending results. * CRP - 171.6, Procalcitonin-0.90, Lactic acid 1.0 * Started the patient on empiric antibiotic with Ceftriaxone 1gm on 05/11/25. Rectal bleed, POA: * Started on Intravenous Fluid NS at 75 mL/hour * GI was consulted, will follow their recommendations. * We will monitor H&H trend to keep hemoglobin above 7.0 * CT abdomen was ordered, result show Large lobulated mass in the pelvis and right iliac fossa with an ill-defined interface with uterine fundus likely a large uterine subserosal fibroid, Bilateral ovarian dermoid cysts. Subserosal uterine fibroids with calcification, Mild pelvic free fluid, Mild hepat omegaly. * USG was ordered which showed Hepatomegaly with hepatic steatosis. Heterogenous mass in the abdomen. * Started on Protonix 40 mg IV daily * Started on Zofran 4 mg IV every 6 hours. Acute anemia secondary to blood loss, POA: * On presentation Hemoglobin was 9.8, Hematocrit was 30.3 * Anemia panel was ordered, pending results. * Hemoglobin trends 9.8>8.7>8.8>8.7 * We will monitor H&H trend to keep hemoglobin above 7.0 Possible leiomyosarcoma, POA * CT abdomen was ordered, result show Large lobulated mass in the pelvis and right iliac fossa with an ill-defined interface with uterine fundus likely a large uterine subserosal fibroid, Bilateral ovarian dermoid cysts. Subserosal uterine fibroids with calcification, Mild pelvic free fluid, Mild hepatomegaly. * MRI pelvis was ordered, results show Very large right side uterine mass measuring 15.1cm x 12.0cm extending from the fundus of the uterus possible leiomyosarcoma, Enlarged uterus with a second right side fundal subserosal leiomyoma measuring 6.3 cm with cystic degeneration, chronic hemorrhagic components, and calcifications, Bilateral ovarian dermoid cysts measuring 4.1 cm on the left and 3.4 cm on the right, Moderate pelvic free fluid and multiple cervical Nabothian cysts. * Oncology was consulted, will follow recommendations Uterine Fibroid, POA * CT abdomen was ordered, result show Large lobulated mass in the pelvis and right iliac fossa with an ill-defined interface with uterine fundus likely a large uterine subserosal fibroid, Bilateral ovarian dermoid cysts. Subserosal uterine fibroids with calcification, Mild pelvic free fluid, Mild hepatomegaly. * MRI pelvis was ordered, results show Very large right side uterine mass measuring 15.1cm x 12.0cm extending from the fundus of the uterus possible leiomyosarcoma, Enlarged uterus with a second right side fundal subserosal leiomyoma measuring 6.3 cm with cystic degeneration, chronic hemorrhagic components, and calcifications, Bilateral ovarian dermoid cysts measuring 4.1 cm on the left and 3.4 cm on the right, Moderate pelvic free fluid and multiple cervical Nabothian cysts. * Oncology was consulted, will follow recommendations Supportive measures: Tylenol 650 mg po every 4 hours for fever Hydralazine 5 mg IV every 4 hours systolic pressure > 160 Lactulose 20 gm PO BID PRN constipation DVT ppx, GI ppx. ATTESTATION BY PHYSICIAN I have seen and examined the patient. I reviewed the documentation, medical decision making, and treatment plan as noted by the resident physician above. I agree with the findings and plan of care. REHAN AVINA MD, SHAJI MD May 12, 2025 11:40
--- NOTE | 2025-05-12 12:38 | CONS ---
CONSULT REFERRING PHYSICIAN: DR REHAN AVINA REASON FOR CONSULT: UTERINE MASS, POSSIBLE LEIOMYOSARCOMA HISTORY HPI: This is a 50-year-old female that presents in ED with chief complaints of rectal bleed. onset since 5 days, severity of blood loss: moderate amount. Denies rectal pain, abd pain, suprapubic pain. Patient was diagnosed with hemorrhoids two days ago. Presented in ED two days ago with similar symptoms and was discharged with hydrocortisone acetate 25 mg suppository, reports taking medication was just started on Saturday evening. but this morning she was feeling dyspnea on exertion, headache, tired lightheaded and dizzy and decided to come to ED for further evaluation and treatment. ER workup was consistent with anemia secondary to blood loss from hemorrhoids. Patient never had her GI screening colonoscopy. She does reports she eats a lot of spicy foods on a daily basis and history of constipation. CT scan was done, results show - Large lobulated mass in the pelvis and right iliac fossa with an ill-defined interface with uterine fundus likely a large uterine subserosal fibroid, Bilateral ovarian dermoid cysts. Subserosal uterine fibroids with calcification, Mild pelvic free fluid, Mild hepatomegaly. USG abdomen showed hepatomegaly with hepatic steatosis and heterogenous mass in the abdomen. Pelvic MRI was done which showed Very large right side uterine mass measuring 15.1cm x 12.0cm extending from the fundus of the uterus possible leiomyosarcoma and enlarged uterus with a second right side fundal subserosal leiomyoma measuring 6.3 cm demonstrating cystic degeneration, chronic hemorrhagic components, and calcifications; imaging features are most consistent with a benign fibroid Patient was seen and evaluated in room 117. She is alert, awake and oriented x3. No acute events overnight, patient reports of continuing rectal bleed but the frequency has decreased a lot from admission. Patient denies any fever, chills dizziness, lightheadedness and shortness of breath today. Colonoscopy showed nonbleeding hemorrhoids. Her hgb is 7.6, Iron 16, TIBC 368, % sat 4.3, ferritin 36 PMH: no pertinent past medical history PSH: SH: Smoking tobacco products and alcohol use ALLERGIES: Coded Allergies: No Known Allergies (Unverified Allergy, Unknown, 05/06/25) CURRENT MEDS: Current Medications Medications (Trade) Dose Ordered Sig/Richar Route PRN Reason Start Time Stop Time Status Last Admin Ceftriaxone Sodium (Rocephin 2gm Inj) 2 gm Q24H IVPB 05/11/25 15:00 05/21/25 14:59 05/11/25 16:17 REVIEW OF SYSTEMS CONSTITUTIONAL: No FEVER, No SWEATS, No CHILLS, No WEIGHT LOSS HEENT: No JAUNDICE, No SORE THROAT, No SINUS PRESSURE, No VISION CHANGES CARDIOVASCULAR: No PALPATIONS, No DYSPNEA ON EXERTION, No SYNCOPE GASTROINTESTINAL: HEMATOCHEZIA GENITOURINARY: No DYSURIA, No HEMATURIA HEMATOLOGIC/LYMPHATIC: No EASY BRUISING, No CERVICAL ADENOPATHY, No AXILLARY ADENOPATHY, No INGUINAL ADENOPATHY PHYSICAL EXAM VITALS: Vital Signs Date Time Temp Pulse Resp B/P (MAP) Pulse Ox O2 Delivery O2 Flow Rate FiO2 05/12/25 11:47 98.8 77 18 92/47 92 Room Air 05/12/25 11:00 10.0 05/11/25 20:00 21 GENERAL: ALERT, ORIENTED, APPEARS-NO ACUTE DISTRESS RESPIRATORY: LUNGS CLEAR-AUSC/PERCUS CARDIOVASCULAR: REGULAR RATE, REGULAR RHYTHM GASTROINTESTINAL: ABDOMEN IS SOFT, BOWEL SOUNDS PRESENT DIAGNOSTIC STUDIES PATIENT: JARET EGAN MR#: [id number] : 1975 SEX: F AGE: 50 LOCATION: 1MS ORDER 56 STATUS: ADM IN REPORT#: [id number] SERVICE 46 REASON: pelvic mass ORDERING PHYSICIAN: ELIZABETH KHAN [employer]ATTRESS SPECIALIST PROCEDURE: PELV WWO - MR PELVIS W/WO CON ADDENDUM REPORT ADDENDUM: Results were shared by telephone at 11:34 pm on 05-11-25 and acknowledged by Patient Nurse Ms. Nemo Hancock. /[facility] EXAM: MRI PELVIS WITH AND WITHOUT INTRAVENOUS CONTRAST Technique: Multiplanar, multisequence magnetic resonance imaging of the pelvis was performed before and after intravenous contrast administration, including axial, sagittal, and coronal T1- and T2-weighted sequences with fat-suppressed imaging, diffusion-weighted imaging, and dySnamic post-contrast acquisitions. Contrast: Clariscan (gadoterate meglumine) 0.5 mmol/mL, total 17 mL administered intravenously. Clinical Information: History of pelvic mass. Findings: Uterus: Uterus is enlarged, and a well-circumscribed subserosal leiomyoma arises from the right fundal uterine wall measuring 6.3 cm with internal cystic degeneration, chronic hemorrhagic components, and coarse calcifications; the lesion abuts and appears to communicate with the uterine fundus on a broad base. 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 Recommend CT-PET and surgical consultation for further workup. Cervix: Multiple Nabothian cysts are present without suspicious enhancing mass. Ovaries and adnexa: Left ovary contains a 4.1 cm dermoid cyst with macroscopic fat and internal complexity; right ovary contains a 3.4 cm dermoid cyst with similar characteristics; no suspicious enhancing adnexal mass is identified. Pelvic peritoneum and fluid: Minimal free fluid is present in the pelvis. Urinary bladder: Bladder contour and wall thickness are normal without intraluminal mass. Bowel: Visualized rectosigmoid and small bowel loops are unremarkable without obstruction. Lymph nodes: No pathologically enlarged pelvic lymph nodes are identified. Vasculature: Pelvic vessels are normal in course and caliber. Abdominal wall and soft tissues: No focal soft-tissue abnormality is identified. Osseous structures: No aggressive osseous lesion is identified. 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 Recommend CT-PET and surgical consultation for further workup. * Enlarged uterus with a second right side fundal subserosal leiomyoma measuring 6.3 cm demonstrating cystic degeneration, chronic hemorrhagic components, and calcifications; imaging features are most consistent with a benign fibroid. Gynecology consultation is recommended for management discussion; surgical options (myomectomy or hysterectomy) may be considered based on symptoms and fertility plans. * Bilateral ovarian dermoid cysts measuring 4.1 cm on the left and 3.4 cm on the right without imaging features of malignant transformation. Gynecology follow-up is recommended; elective surgical removal can be considered if symptomatic or enlarging. * Moderate pelvic free fluid and multiple cervical Nabothian cysts. * No suspicious pelvic lymphadenopathy or other pelvic mass. * Comparison: Compared with computed tomography of the abdomen and pelvis with intravenous contrast dated 05/09/2025 15:25 EST, the very large fundal fibroid mass and large lobulated right fundal subserosal mass corresponds to a subserosal uterine fibroid, and bilateral ovarian dermoid cysts and mild pelvic free fluid are again demonstrated without new suspicious findings. /[facility] DICTATED BY: MANDY NOWAK MD DATE: 05/11/252345 ELECTRONICALLY SIGNED BY: DATE: EXAM: MRI PELVIS WITH AND WITHOUT INTRAVENOUS CONTRAST Technique: Multiplanar, multisequence magnetic resonance imaging of the pelvis was performed before and after intravenous contrast administration, including axial, sagittal, and coronal T1- and T2-weighted sequences with fat-suppressed imaging, diffusion-weighted imaging, and dySnamic post-contrast acquisitions. Contrast: Clariscan (gadoterate meglumine) 0.5 mmol/mL, total 17 mL administered intravenously. Clinical Information: History of pelvic mass. Findings: Uterus: Uterus is enlarged, and a well-circumscribed subserosal leiomyoma arises from the right fundal uterine wall measuring 6.3 cm with internal cystic degeneration, chronic hemorrhagic components, and coarse calcifications; the lesion abuts and appears to communicate with the uterine fundus on a broad base. 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 Recommend CT-PET and surgical consultation for further workup. Cervix: Multiple Nabothian cysts are present without suspicious enhancing mass. Ovaries and adnexa: Left ovary contains a 4.1 cm dermoid cyst with macroscopic fat and internal complexity; right ovary contains a 3.4 cm dermoid cyst with similar characteristics; no suspicious enhancing adnexal mass is identified. Pelvic peritoneum and fluid: Minimal free fluid is present in the pelvis. Urinary bladder: Bladder contour and wall thickness are normal without intraluminal mass. Bowel: Visualized rectosigmoid and small bowel loops are unremarkable without obstruction. Lymph nodes: No pathologically enlarged pelvic lymph nodes are identified. Vasculature: Pelvic vessels are normal in course and caliber. Abdominal wall and soft tissues: No focal soft-tissue abnormality is identified. Osseous structures: No aggressive osseous lesion is identified. 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 Recommend CT-PET and surgical consultation for further workup. * Enlarged uterus with a second right side fundal subserosal leiomyoma measuring 6.3 cm demonstrating cystic degeneration, chronic hemorrhagic components, and calcifications; imaging features are most consistent with a benign fibroid. Gynecology consultation is recommended for management discussion; surgical options (myomectomy or hysterectomy) may be considered based on symptoms and fertility plans. * Bilateral ovarian dermoid cysts measuring 4.1 cm on the left and 3.4 cm on the right without imaging features of malignant transformation. Gynecology follow-up is recommended; elective surgical removal can be considered if symptomatic or enlarging. * Moderate pelvic free fluid and multiple cervical Nabothian cysts. * No suspicious pelvic lymphadenopathy or other pelvic mass. * Comparison: Compared with computed tomography of the abdomen and pelvis with intravenous contrast dated 05/09/2025 15:25 EST, the very large fundal fibroid mass and large lobulated right fundal subserosal mass corresponds to a subserosal uterine fibroid, and bilateral ovarian dermoid cysts and mild pelvic free fluid are again demonstrated without new suspicious findings. /[facility] DICTATED BY: MANDY NOWAK MD DATE: 05/11/252324 ELECTRONICALLY SIGNED BY: MANDY NOWAK MD DATE: 05/11/252324 IMPRESSION 1. Acute blood loss anemia 2. Iron deficiency anemia 3. Uterine mass possible leiomyosarcoma PLAN 1. Pelvic MRI showing uterine mass measuring 15.1cm x 12.0cm , will request image guided-biopsy by IR to differentiate the mass 2. Peripheral smear showed microcytic, normochromic anemia, There is no fragment cells or schistocyte . No rouleaux phenomena. no blast cells or band forms or Pelger-Huet cells Increased platelet count due to HECTOR. Spherocytes are present, will request Direct Jonathan's test. 3. Iron-deficiency anemia - start iron supplementation with IV Venofer 200mg and oral iron supplementation for 6 months. 4. Colonoscopy revealed non bleeding hemorrhoids. RODOLFO MORALES MD May 12, 2025 12:38
[2025-05-13] VITALS (7 sets, daily range): BP systolic 97–139; BP diastolic 46–86; PULSE 74–92; RESP 16–24; TEMP 97.7–98.8; O2SAT 95–98
[2025-05-13 04:54] LABS: IMMATURE GRANULOCYTE ABSOLUTE 0.04 K/uL (0-1); NUCLEATED RED BLOOD CELLS 0.0 % (0.0-0.19); PLATELET COUNT (AUTO) 247 K/uL (130-400); RED BLOOD CELL COUNT(AUTO) 2.56 MIL/uL (4.00-5.50); RED CELL DISTRIBUTION WIDTH 13.9 % (11.0-15.5); WHITE BLOOD COUNT (AUTO) 8.2 K/uL (4.8-10.8)
[2025-05-13 05:11] LABS: ASPARTATE AMINOTRANSFERASE 16.0 U/L (10-37); CREATININE 0.6 mg/dL (0.5-1.0); GLOMERULAR FILTR. RATE CALC 109.0 mL/min (>90); GLUCOSE,RANDOM 90.0 mg/dL (70-105); SODIUM SERUM 139.0 mmol/L (136-145); TOTAL PROTEIN, SERUM 6.4 g/dL (6.0-8.3); UREA NITROGEN, BLOOD 5.0 mg/dL (7-18)
[2025-05-13 08:53] LABS: INR 1.0 (0.85-1.15)
--- NOTE | 2025-05-13 12:29 | PN ---
This is a 50-year-old female that presents in ED with chief complaints of rectal bleed. onset since 5 days, severity of blood loss: moderate amount. Denies rectal pain, abd pain, suprapubic pain. Patient was diagnosed with hemorrhoids two days ago. Presented in ED two days ago with similar symptoms and was discharged with hydrocortisone acetate 25 mg suppository, reports taking medication was just started on Saturday evening. but this morning she was feeling dyspnea on exertion, headache, tired lightheaded and dizzy and decided to come to ED for further evaluation and treatment. ER workup was consistent with anemia secondary to blood loss from hemorrhoids. Patient never had her GI screening colonoscopy. She does reports she eats a lot of spicy foods on a daily basis and history of constipation. CT scan was done, results show - Large lobulated mass in the pelvis and right iliac fossa with an ill-defined interface with uterine fundus likely a large uterine subserosal fibroid, Bilateral ovarian dermoid cysts. Subserosal uterine fibroids with calcification, Mild pelvic free fluid, Mild hepatomegaly. USG abdomen showed hepatomegaly with hepatic steatosis and heterogenous mass in the abdomen. Pelvic MRI was done which showed Very large right side uterine mass measuring 15.1cm x 12.0cm extending from the fundus of the uterus possible leiomyosarcoma and enlarged uterus with a second right side fundal subserosal leiomyoma measuring 6.3 cm demonstrating cystic degeneration, chronic hemorrhagic components, and calcifications; imaging features are most consistent with a benign fibroid Patient was seen and evaluated in room 117. She is alert, awake and oriented x3. No acute events overnight, patient reports of continuing rectal bleed but the frequency has decreased a lot from admission. Patient denies any fever, chills dizziness, lightheadedness and shortness of breath today. Colonoscopy showed nonbleeding hemorrhoids. Her hgb is 7.6, Iron 16, TIBC 368, % sat 4.3, ferritin 36 PHYSICAL EXAM VITALS: Vital Signs GENERAL: ALERT, ORIENTED, APPEARS-NO ACUTE DISTRESS RESPIRATORY: LUNGS CLEAR-AUSC/PERCUS CARDIOVASCULAR: REGULAR RATE, REGULAR RHYTHM GASTROINTESTINAL: ABDOMEN IS SOFT, BOWEL SOUNDS PRESENT IMPRESSION 1. Acute blood loss anemia 2. Iron deficiency anemia 3. Uterine mass possible leiomyosarcoma PLAN 1. Pelvic MRI showing uterine mass measuring 15.1cm x 12.0cm. IR were consulted for biopsy to be done. 2. Peripheral smear showed microcytic, normochromic anemia, There is no fragment cells or schistocyte . No rouleaux phenomena. no blast cells or band forms or Pelger-Huet cells Increased platelet count due to HECTOR. Spherocytes are present, will request Direct Jonathan's test. 3. Iron-deficiency anemia - start iron supplementation with IV Venofer 200mg and oral iron supplementation for 6 months. 4. Colonoscopy revealed non bleeding hemorrhoids. I. The biopsy is done and patient stable she could be discharged to follow-up with us as outpatient. Vitals/Labs Vital Signs Date Time Temp Pulse Resp B/P (MAP) Pulse Ox O2 Delivery O2 Flow Rate FiO2 05/13/25 11:37 98.4 85 24 139/76 97 Room Air 21 05/13/25 00:28 0 Laboratory Tests 05/13/25 04:42 Medications Current Medications Iohexol 75 ml STK-MED ONCE IV; Start 05/09/25 at 15:11; Stop 05/09/25 at 15:12; Status DC Pantoprazole Sodium 40 mg DAILY IVP Last administered on 05/13/25at 10:04; Start 05/10/25 at 09:00; Stop 06/09/25 at 08:59 Acetaminophen 650 mg Q4H PRN PO Last administered on 05/11/25at 21:44; Start 05/09/25 at 15:30; Stop 06/08/25 at 15:29 Ondansetron HCl 4 mg Q6H PRN IVP; Start 05/09/25 at 15:30; Stop 06/08/25 at 15:29 Hydralazine HCl 5 mg Q4H PRN IV; Start 05/09/25 at 15:30; Stop 06/08/25 at 15:29 Morphine Sulfate 2 mg Q4H PRN IVP; Start 05/09/25 at 15:30; Stop 05/16/25 at 15:29 Sodium Chloride 1,000 ml @ 75 mls/hr [id number] IV Last administered on 05/11/25at 21:43; Start 05/09/25 at 15:30; Stop 06/08/25 at 15:29 Lactulose 20 gm BID PRN PO; Start 05/09/25 at 16:00; Stop 06/08/25 at 15:59 Magnesium Sulfate 50 ml @ 0 mls/hr PROTOCOL PRN IV; Start 05/09/25 at 16:00; Stop 06/08/25 at 15:59 Potassium Chloride 100 ml @ 100 mls/hr AD PRN IV; Start 05/09/25 at 16:00; Stop 06/08/25 at 15:59 Potassium Chloride 20 meq AD PRN PO; Start 05/09/25 at 16:00; Stop 06/08/25 at 15:59 Potassium Chloride 20 meq AD PRN PO Last administered on 05/12/25at 22:52; Start 05/09/25 at 16:00; Stop 06/08/25 at 15:59 Hydrocortisone Acetate 1 supp DAILY MD Last administered on 05/12/25at 11:34; Start 05/10/25 at 09:00; Stop 06/09/25 at 08:59 Iron Sucrose 200 mg ONCE ONCE IV Last administered on 05/10/25at 16:07; Start 05/10/25 at 15:30; Stop 05/10/25 at 15:31; Status DC Iron Sucrose 200 mg ONCE ONCE IV Last administered on 05/11/25at 11:52; Start 05/11/25 at 11:30; Stop 05/11/25 at 11:31; Status DC Gadoterate Meglumine 10 mmol STK-MED ONCE IV; Start 05/11/25 at 14:33; Stop 05/11/25 at 14:33; Status DC Ceftriaxone Sodium 2 gm Q24H IVPB Last administered on 05/12/25at 15:00; Start 05/11/25 at 15:00; Stop 05/21/25 at 14:59 Polyethylene Glycol/ Electrolytes 4,000 ml ONCE STAT PO Last administered on 05/11/25at 19:16; Start 05/11/25 at 17:44; Stop 05/11/25 at 17:47; Status DC Propofol 200 mg STK-MED ONCE IV; Start 05/12/25 at 10:43; Stop 05/12/25 at 10:43; Status DC Lidocaine HCl 100 mg STK-MED ONCE .ROUTE; Start 05/12/25 at 10:43; Stop 05/12/25 at 10:43; Status DC Iron Sucrose 200 mg ONCE ONCE IV Last administered on 05/12/25at 11:35; Start 05/12/25 at 11:30; Stop 05/12/25 at 11:31; Status DC Acetaminophen 650 mg Q4H PRN PO Last administered on 05/12/25at 22:48; Start 05/12/25 at 22:30; Stop 06/11/25 at 22:29 Iron Sucrose 200 mg ONCE ONCE IV; Start 05/13/25 at 11:00; Stop 05/13/25 at 11:01; Status DC DEE RODRIGUEZ MD May 13, 2025 12:29
--- NOTE | 2025-05-13 14:13 | NUR ---
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 WILL CHANGE ORDER FOR TOMORROWS DATE.
--- NOTE | 2025-05-13 15:41 | PN ---
[facility] PROGRESS NOTE Date of Service: May 13, 2025 Time of Service: 15:37 HISTORY OF PRESENT ILLNESS: This is a 50-year-old female that presents in ED with chief complaints of rectal bleed. onset since 5 days, severity of blood loss: moderate amount. Denies rectal pain, abd pain, suprapubic pain. Patient was diagnosed with hemorrhoids two days ago. Presented in ED two days ago with similar symptoms and was discharged with hydrocortisone acetate 25 mg suppository, reports taking medication was just started on Saturday evening. but this morning she was feeling dyspnea on exertion, headache, tired lightheaded and dizzy and decided to come to ED for further evaluation and treatment. ER workup was consistent with anemia secondary to blood loss from hemorrhoids. Patient never had her GI screening colonoscopy. She does reports she eats a lot of spicy foods on a daily basis and history of constipation. Labs reviewed WBCs 10.6 hemoglobin 9.8 hematocrit 30.3 chemistry unremarkable occult blood pending on admission SUBJECTIVE: 05/10/25: Patient was seen and evaluated in room 417. Patient reports of continuing rectal bleed. Patient denies rectal pain, abdominal pain, suprapubic pain. Patient denies fever, chills, dizziness, lightheadedness and shortness of breath. GI was consulted, will follow their recommendations. CT scan was done, results show - Large lobulated mass in the pelvis and right iliac fossa with an ill-defined interface with uterine fundus likely a large uterine subserosal fibroid, Bilateral ovarian dermoid cysts. Subserosal uterine fibroids with calcification, Mild pelvic free fluid, Mild hepatomegaly. 05/11/25: Patient was seen and evaluated in room 117. Patient reports of continuing rectal bleed but the amount is scant compared to the prior day. Patient report she had fever last night and her temperature in the morning was 100.4. Patient complains of diffuse abdominal tenderness. Patient denies chills, dizziness, lightheadedness and shortness of breath. USG abdomen showed hepatomegaly with hepatic steatosis and heterogenous mass in the abdomen. Pelvic MRI was done for further investigation. Urinalysis was positive for UTI 05/12/25: Patient was seen and evaluated in room 117. Patient reports of continuing rectal bleed but the frequency has decreased a lot from admission. Patient denies any fever, chills dizziness, lightheadedness and shortness of breath today. Continuing on Rocephin for UTI. She is scheduled for colonoscopy today. 05/13/25: Patient was seen and evaluated in room 117. Patient reports of irregular menstrual spotting and also reports of continuing rectal bleed which is scant. patient denies any fever, chills, lightheadedness and shortness of breath. Patient coloscopy came back positive for nonbleeding hemorrhoids. Patient scheduled image guided-biopsy from today for possible leiomyosarcoma is scheduled for tomorrow because radiologist was busy with a different case. REVIEW OF SYSTEMS REVIEW OF SYSTEMS CONSTITUTIONAL: Complains of fever, Denies chills, or night sweats. No unintentional weight loss reported. NEUROLOGICAL: Denies headache, amaurosis fugax, motor weakness, sensory deficit, vertigo/spinning sensation, gait abnormalities, or tremors. ENT: No hearing loss, otalgia, otorrhea, rhinitis, rhinorrhea, hoarseness, or sore throat. CARDIOVASCULAR: Denies any exertional angina, dyspnea on exertion, orthopnea, paroxysmal nocturnal dyspnea, palpitations, life-threatening arrhythmias, claudication. PULMONARY: Denies any shortness of breath, cough, phlegm/sputum, hemoptysis, pleuritic chest pain. SLEEP: Denies morning headaches, daytime somnolence or napping. Denies difficulty falling asleep, staying asleep, waking from sleep. Denies knowledge of snoring. GASTROINTESTINAL: Denies any type of dysphagia to either liquids or solids. Denies nausea, vomiting, pyrosis, early satiety, abdominal pain, diarrhea, constipation, or changes in stool consistency or caliber. Denies coffee-ground emesis, hematemesis, hematochezia, or melanotic stools. GENITOURINARY: Denies frequency, urgency, nocturia, hematuria or incontinence (Storage/Irritative symptoms.) Low urinary stream, straining to void, urinary intermittency or hesitancy, splitting of the voiding stream, terminal dribbling. PHYSICAL EXAM GENERAL APPEARANCE: The patient is awake, alert, and oriented, in no acute cardiopulmonary distress. NEUROLOGICAL: Cranial nerves II-XII grossly intact. Motor is 5/5 in bilateral upper and lower extremities proximal to distal. No sensory deficits. HEENT: Face is symmetric. Pupils are equal and reactive. Extraocular movements are intact. NECK: Supple. No JVD. No thyromegaly. No submental, submandibular, pre- /postauricular, occipital or supraclavicular lymphadenopathy. CHEST: Normal chest expansion. No Telemetry. LUNGS: Absence of any rales, rhonchi or any wheezing. CARDIOVASCULAR: Regular. S1 and S2 normal. No appreciable rubs, murmurs or gallops. ABDOMEN: Diffuse abdominal tenderness. There is no rebound, voluntary guarding, or rigidity. : Deferred. No Mccormack. EXTREMITIES: Non-edematous and not cyanotic. No clubbing. Good capillary refill. SKIN: No skin breakdown. Vital Signs (last 8hr) Date Time Temp Pulse Resp B/P (MAP) Pulse Ox O2 Delivery O2 Flow Rate FiO2 05/13/25 11:37 98.4 85 24 139/76 97 Room Air 21 05/13/25 07:43 98.8 88 18 126/59 95 Room Air 21 LABS: Laboratory: Test 05/13/25 08:36 05/13/25 04:42 Range/Units Prothrombin Time 10.6 9.6-11.6 SEC Prothromb Time International Ratio 1.00 0.85-1.15 White Blood Count 8.2 4.8-10.8 K/uL Red Blood Count 2.56 L 4.00-5.50 MIL/uL Hemoglobin 7.3 L 12.0-16.0 g/dL Hematocrit 23.3 L 36-48 % Mean Corpuscular Volume 91.0 79-99 fL Mean Corpuscular Hemoglobin 28.5 27.0-33.0 pg Mean Corpuscular Hemoglobin Concent 31.3 L 32.0-36.0 g/dL Red Cell Distribution Width 13.9 11.0-15.5 % Platelet Count 247 130-400 K/uL Mean Platelet Volume 9.0 7.5-10.5 fL Immature Granulocyte % (Auto) 0.5 0-1 % Neutrophils (%) (Auto) 62.0 40.0-77.0 % Lymphocytes (%) (Auto) 26.4 21.0-51.0 % Monocytes (%) (Auto) 9.2 3.0-13.0 % Eosinophils (%) (Auto) 1.5 0.0-8.0 % Basophils (%) (Auto) 0.4 0.0-5.0 % Neutrophils # (Auto) 5.1 1.8-7.7 K/uL Lymphocytes # (Auto) 2.2 1.0-4.8 K/uL Monocytes # (Auto) 0.8 0.1-1.0 K/uL Eosinophils # (Auto) 0.12 0.00-0.70 K/uL Basophils # (Auto) 0.03 0.00-0.20 K/uL Absolute Immature Granulocyte (auto 0.04 0-1 K/uL Nucleated Red Blood Cells 0.0 0.0-0.19 % Sodium Level 139 136-145 mmol/L Potassium Level 3.5 3.5-5.1 mmol/L Chloride Level 106 101-111 mmol/L Carbon Dioxide Level 25 21-32 mmol/L Blood Urea Nitrogen 5 L 7-18 mg/dL Creatinine 0.6 0.5-1.0 mg/dL Glomerular Filtration Rate Calc 109 >90 mL/min Random Glucose 90 70-105 mg/dL Total Calcium 7.7 L 8.5-10.1 mg/dL Total Bilirubin 0.2 0.2-1.0 mg/dL Aspartate Amino Transf (AST/SGOT) 16 10-37 U/L Alanine Aminotransferase (ALT/SGPT) 15 12-78 U/L Alkaline Phosphatase 53 50-136 U/L Total Protein 6.4 6.0-8.3 g/dL Albumin 2.4 L 3.5-5.0 g/dL Current Medications Medications (Trade) Dose Ordered Sig/Richar Route PRN Reason Start Time Stop Time Status Last Admin Dose Admin Acetaminophen (TYLenol 325MG TAB) 650 mg Q4H PRN PO TEMPERATURE GREATER THAN 101.5 05/09/25 15:30 06/08/25 15:29 05/11/25 21:44 650 MG Acetaminophen (TYLenol 325MG TAB) 650 mg Q4H PRN PO MILD PAIN (1-3) 05/12/25 22:30 06/11/25 22:29 05/12/25 22:48 650 MG Ceftriaxone Sodium (Rocephin 2gm Inj) 2 gm Q24H IVPB 05/11/25 15:00 05/21/25 14:59 05/12/25 15:00 2 GM Hydralazine HCl (APRESOLine 20MG INJ) 5 mg Q4H PRN IV ADMINISTER FOR SBP > 160 05/09/25 15:30 06/08/25 15:29 Hydrocortisone Acetate (anuSOL-HC 25MG SUPP) 1 supp DAILY WI 05/10/25 09:00 06/09/25 08:59 05/13/25 12:56 1 SUPP Lactulose (Constulose 20gm/ 30ml Udcup) 20 gm BID PRN PO CONSTIPATION 05/09/25 16:00 06/08/25 15:59 Magnesium Sulfate 50 ml @ 0 mls/hr PROTOCOL PRN IV low mag level 05/09/25 16:00 06/08/25 15:59 Morphine Sulfate (morPHINE 2MG SYG) 2 mg Q4H PRN IVP SEVERE PAIN (7-10) 05/09/25 15:30 05/16/25 15:29 Ondansetron HCl (zoFRAN 4MG INJ) 4 mg Q6H PRN IVP NAUSEA/VOMITING 05/09/25 15:30 06/08/25 15:29 Pantoprazole Sodium (PROTonix 40MG INJ) 40 mg DAILY IVP 05/10/25 09:00 06/09/25 08:59 05/13/25 10:04 40 MG Polyethylene Glycol/ Electrolytes (Golytely/Colyte Soln) 4,000 ml ONCE STAT PO 05/11/25 17:44 05/11/25 17:47 DC 05/11/25 19:16 4,000 ML Potassium Chloride 100 ml @ 100 mls/hr AD PRN IV POTASSIUM PROTOCOL 05/09/25 16:00 06/08/25 15:59 Potassium Chloride (K-Dur/Klor-Con 20meq) 20 meq AD PRN PO POTASSIUM PROTOCOL 05/09/25 16:00 06/08/25 15:59 05/12/25 22:52 20 MEQ Potassium Chloride (KCl 10% Elixir 20meq/15ml) 20 meq AD PRN PO POTASSIUM PROTOCOL 05/09/25 16:00 06/08/25 15:59 Sodium Chloride 1,000 ml @ 75 mls/hr [id number] IV 05/09/25 15:30 06/08/25 15:29 05/13/25 13:13 75 MLS/HR DIAGNOSTICS / RADIOLOGY: [place] [id number] [address] IMAGING REPORT Addendum PATIENT: JARET EGAN MR#: [id number] : 1975 SEX: F AGE: 50 LOCATION: 1MS ORDER 56 STATUS: ADM IN REPORT#: [id number] SERVICE 46 REASON: pelvic mass ORDERING PHYSICIAN: ELIZABETH KHAN [employer]IE[employer]ENCE OFFICER PROCEDURE: PELV WWO - MR PELVIS W/WO CON ADDENDUM REPORT ADDENDUM: Results were shared by telephone at 11:34 pm on 05-11-25 and acknowledged by Patient Nurse Ms. Nemo Hancock. /[facility] EXAM: MRI PELVIS WITH AND WITHOUT INTRAVENOUS CONTRAST Technique: Multiplanar, multisequence magnetic resonance imaging of the pelvis was performed before and after intravenous contrast administration, including axial, sagittal, and coronal T1- and T2-weighted sequences with fat-suppressed imaging, diffusion-weighted imaging, and dySnamic post-contrast acquisitions. Contrast: Clariscan (gadoterate meglumine) 0.5 mmol/mL, total 17 mL administered intravenously. Clinical Information: History of pelvic mass. Findings: Uterus: Uterus is enlarged, and a well-circumscribed subserosal leiomyoma arises from the right fundal uterine wall measuring 6.3 cm with internal cystic degeneration, chronic hemorrhagic components, and coarse calcifications; the lesion abuts and appears to communicate with the uterine fundus on a broad base. 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 Recommend CT-PET and surgical consultation for further workup. Cervix: Multiple Nabothian cysts are present without suspicious enhancing mass. Ovaries and adnexa: Left ovary contains a 4.1 cm dermoid cyst with macroscopic fat and internal complexity; right ovary contains a 3.4 cm dermoid cyst with similar characteristics; no suspicious enhancing adnexal mass is identified. Pelvic peritoneum and fluid: Minimal free fluid is present in the pelvis. Urinary bladder: Bladder contour and wall thickness are normal without intraluminal mass. Bowel: Visualized rectosigmoid and small bowel loops are unremarkable without obstruction. Lymph nodes: No pathologically enlarged pelvic lymph nodes are identified. Vasculature: Pelvic vessels are normal in course and caliber. Abdominal wall and soft tissues: No focal soft-tissue abnormality is identified. Osseous structures: No aggressive osseous lesion is identified. 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 Recommend CT-PET and surgical consultation for further workup. * Enlarged uterus with a second right side fundal subserosal leiomyoma measuring 6.3 cm demonstrating cystic degeneration, chronic hemorrhagic components, and calcifications; imaging features are most consistent with a benign fibroid. Gynecology consultation is recommended for management discussion; surgical options (myomectomy or hysterectomy) may be considered based on symptoms and fertility plans. * Bilateral ovarian dermoid cysts measuring 4.1 cm on the left and 3.4 cm on the right without imaging features of malignant transformation. Gynecology follow-up is recommended; elective surgical removal can be considered if symptomatic or enlarging. * Moderate pelvic free fluid and multiple cervical Nabothian cysts. * No suspicious pelvic lymphadenopathy or other pelvic mass. * Comparison: Compared with computed tomography of the abdomen and pelvis with intravenous contrast dated 05/09/2025 15:25 EST, the very large fundal fibroid mass and large lobulated right fundal subserosal mass corresponds to a subserosal uterine fibroid, and bilateral ovarian dermoid cysts and mild pelvic free fluid are again demonstrated without new suspicious findings. /[facility] DICTATED BY: MANDY NOWAK MD DATE: 05/11/25 4950 ELECTRONICALLY SIGNED BY: DATE: EXAM: MRI PELVIS WITH AND WITHOUT INTRAVENOUS CONTRAST Technique: Multiplanar, multisequence magnetic resonance imaging of the pelvis was performed before and after intravenous contrast administration, including axial, sagittal, and coronal T1- and T2-weighted sequences with fat-suppressed imaging, diffusion-weighted imaging, and dySnamic post-contrast acquisitions. Contrast: Clariscan (gadoterate meglumine) 0.5 mmol/mL, total 17 mL administered intravenously. Clinical Information: History of pelvic mass. Findings: Uterus: Uterus is enlarged, and a well-circumscribed subserosal leiomyoma arises from the right fundal uterine wall measuring 6.3 cm with internal cystic degeneration, chronic hemorrhagic components, and coarse calcifications; the lesion abuts and appears to communicate with the uterine fundus on a broad base. 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 Recommend CT-PET and surgical consultation for further workup. Cervix: Multiple Nabothian cysts are present without suspicious enhancing mass. Ovaries and adnexa: Left ovary contains a 4.1 cm dermoid cyst with macroscopic fat and internal complexity; right ovary contains a 3.4 cm dermoid cyst with similar characteristics; no suspicious enhancing adnexal mass is identified. Pelvic peritoneum and fluid: Minimal free fluid is present in the pelvis. Urinary bladder: Bladder contour and wall thickness are normal without intraluminal mass. Bowel: Visualized rectosigmoid and small bowel loops are unremarkable without obstruction. Lymph nodes: No pathologically enlarged pelvic lymph nodes are identified. Vasculature: Pelvic vessels are normal in course and caliber. Abdominal wall and soft tissues: No focal soft-tissue abnormality is identified. Osseous structures: No aggressive osseous lesion is identified. 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 Recommend CT-PET and surgical consultation for further workup. * Enlarged uterus with a second right side fundal subserosal leiomyoma measuring 6.3 cm demonstrating cystic degeneration, chronic hemorrhagic components, and calcifications; imaging features are most consistent with a benign fibroid. Gynecology consultation is recommended for management discussion; surgical options (myomectomy or hysterectomy) may be considered based on symptoms and fertility plans. * Bilateral ovarian dermoid cysts measuring 4.1 cm on the left and 3.4 cm on the right without imaging features of malignant transformation. Gynecology follow-up is recommended; elective surgical removal can be considered if symptomatic or enlarging. * Moderate pelvic free fluid and multiple cervical Nabothian cysts. * No suspicious pelvic lymphadenopathy or other pelvic mass. * Comparison: Compared with computed tomography of the abdomen and pelvis with intravenous contrast dated 05/09/2025 15:25 EST, the very large fundal fibroid mass and large lobulated right fundal subserosal mass corresponds to a subserosal uterine fibroid, and bilateral ovarian dermoid cysts and mild pelvic free fluid are again demonstrated without new suspicious findings. /[place] DICTATED BY: MANDY NOWAK MD DATE: 05/11/252324 ELECTRONICALLY SIGNED BY: MANDY NOWAK MD DATE: 05/11/252324 ASSESSMENT: SIRS Rectal bleed POA Acute anemia secondary to blood loss POA Possible leiomyosarcoma, POA Uterine Fibroid, POA Constipation PLAN: SIRS: * Vitals on 05/11/25 at 12:00 AM were temperature 102.7, Pulse 104, Blood pressure - 98/55 * Urinalysis done on 05/11/25 was cloudy, positive for leukocyte esterase, WBC- TNTC, RBC-TNTC * CT abdomen was ordered, result show Large lobulated mass in the pelvis and right iliac fossa with an ill-defined interface with uterine fundus likely a large uterine subserosal fibroid, Bilateral ovarian dermoid cysts. Subserosal uterine fibroids with calcification, Mild pelvic free fluid, Mild h epatomegaly. * USG was ordered which showed Hepatomegaly with hepatic steatosis. Heterogenous mass in the abdomen * Urine culture was ordered, pending results * Blood culture ordered pending results. * CRP - 171.6, Procalcitonin-0.90, Lactic acid 1.0 * Continuing the patient on empiric antibiotic with Ceftriaxone 1gm. Rectal bleed, POA: * Started on Intravenous Fluid NS at 75 mL/hour * GI was consulted, will follow their recommendations. * We will monitor H&H trend to keep hemoglobin above 7.0 * CT abdomen was ordered, result show Large lobulated mass in the pelvis and right iliac fossa with an ill-defined interface with uterine fundus likely a large uterine subserosal fibroid, Bilateral ovarian dermoid cysts. Subserosal uterine fibroids with calcification, Mild pelvic free fluid, Mild hepatomegaly. * USG was ordered which showed Hepatomegaly with hepatic steatosis. Heterogenous mass in the abdomen. * Started on Protonix 40 mg IV daily * Started on Zofran 4 mg IV every 6 hours. Acute anemia secondary to blood loss, POA: * On presentation Hemoglobin was 9.8, Hematocrit was 30.3 * Anemia panel was ordered, pending results. * Hemoglobin trends 9.8>8.7>8.8>8.7>7.6>7.3 * We will monitor H&H trend to keep hemoglobin above 7.0 Possible leiomyosarcoma, POA * CT abdomen was ordered, result show Large lobulated mass in the pelvis and right iliac fossa with an ill-defined interface with uterine fundus likely a large uterine subserosal fibroid, Bilateral ovarian dermoid cysts. Subserosal uterine fibroids with calcification, Mild pelvic free fluid, Mild hepatomegaly. * MRI pelvis was ordered, results show very large right side uterine mass me asuring 15.1cm x 12.0cm extending from the fundus of the uterus possible leiomyosarcoma, Enlarged uterus with a second right side fundal subserosal leiomyoma measuring 6.3 cm with cystic degeneration, chronic hemorrhagic components, and calcifications, Bilateral ovarian dermoid cysts measuring 4.1 cm on the left and 3.4 cm on the right, Moderate pelvic free fluid and multiple cervical Nabothian cysts. * Oncology was consulted, recommended image image guided-biopsy by IR to differentiate the mass which is scheduled for tomorrow (05/14/25). Uterine Fibroid, POA * CT abdomen was ordered, result show Large lobulated mass in the pelvis and right iliac fossa with an ill-defined interface with uterine fundus likely a large uterine subserosal fibroid, Bilateral ovarian dermoid cysts. Subserosal uterine fibroids with calcification, Mild pelvic free fluid, Mild hepatomegaly. * MRI pelvis was ordered, results show Very large right side uterine mass measuring 15.1cm x 12.0cm extending from the fundus of the uterus possible leiomyosarcoma, Enlarged uterus with a second right side fundal subserosal leiomyoma measuring 6.3 cm with cystic degeneration, chronic hemorrhagic components, and calcifications, Bilateral ovarian dermoid cysts measuring 4.1 cm on the left and 3.4 cm on the right, Moderate pelvic free fluid and multiple cervical Nabothian cysts. * Oncology was consulted, will follow recommendations Supportive measures: Tylenol 650 mg po every 4 hours for fever Hydralazine 5 mg IV every 4 hours systolic pressure > 160 Lactulose 20 gm PO BID PRN constipation DVT ppx, GI ppx. ATTESTATION BY PHYSICIAN I have seen and examined the patient. I reviewed the documentation, medical d ecision making, and treatment plan as noted by the resident physician above. I agree with the findings and plan of care. REHAN AVINA MD, SHAJI MD May 13, 2025 15:41
[2025-05-14] VITALS (14 sets, daily range): BP systolic 100–129; BP diastolic 57–84; PULSE 66–89; RESP 16–18; TEMP 98–99; O2SAT 97
[2025-05-14 05:27] LABS: IMMATURE GRANULOCYTE ABSOLUTE 0.08 K/uL (0-1); NUCLEATED RED BLOOD CELLS 0.0 % (0.0-0.19); PLATELET COUNT (AUTO) 305 K/uL (130-400); RED BLOOD CELL COUNT(AUTO) 2.50 MIL/uL (4.00-5.50); RED CELL DISTRIBUTION WIDTH 14.1 % (11.0-15.5); WHITE BLOOD COUNT (AUTO) 7.8 K/uL (4.8-10.8)
[2025-05-14 05:37] LABS: CREATININE 0.6 mg/dL (0.5-1.0); GLOMERULAR FILTR. RATE CALC 109.0 mL/min (>90); GLUCOSE,RANDOM 102.0 mg/dL (70-105); SODIUM SERUM 139.0 mmol/L (136-145); UREA NITROGEN, BLOOD 3.0 mg/dL (7-18)
--- NOTE | 2025-05-14 11:07 | PN ---
[facility] PROGRESS NOTE Date of Service: May 14, 2025 Time of Service: 11:01 HISTORY OF PRESENT ILLNESS: This is a 50-year-old female that presents in ED with chief complaints of rectal bleed. onset since 5 days, severity of blood loss: moderate amount. Denies rectal pain, abd pain, suprapubic pain. Patient was diagnosed with hemorrhoids two days ago. Presented in ED two days ago with similar symptoms and was discharged with hydrocortisone acetate 25 mg suppository, reports taking medication was just started on Saturday evening. but this morning she was feeling dyspnea on exertion, headache, tired lightheaded and dizzy and decided to come to ED for further evaluation and treatment. ER workup was consistent with anemia secondary to blood loss from hemorrhoids. Patient never had her GI screening colonoscopy. She does reports she eats a lot of spicy foods on a daily basis and history of constipation. Labs reviewed WBCs 10.6 hemoglobin 9.8 hematocrit 30.3 chemistry unremarkable occult blood pending on admission SUBJECTIVE: 05/10/25: Patient was seen and evaluated in room 417. Patient reports of continuing rectal bleed. Patient denies rectal pain, abdominal pain, suprapubic pain. Patient denies fever, chills, dizziness, lightheadedness and shortness of breath. GI was consulted, will follow their recommendations. CT scan was done, results show - Large lobulated mass in the pelvis and right iliac fossa with an ill-defined interface with uterine fundus likely a large uterine subserosal fibroid, Bilateral ovarian dermoid cysts. Subserosal uterine fibroids with calcification, Mild pelvic free fluid, Mild hepatomegaly. 05/11/25: Patient was seen and evaluated in room 117. Patient reports of continuing rectal bleed but the amount is scant compared to the prior day. Patient report she had fever last night and her temperature in the morning was 100.4. Patient complains of diffuse abdominal tenderness. Patient denies chills, dizziness, lightheadedness and shortness of breath. USG abdomen showed hepatomegaly with hepatic steatosis and heterogenous mass in the abdomen. Pelvic MRI was done for further investigation. Urinalysis was positive for UTI 05/12/25: Patient was seen and evaluated in room 117. Patient reports of continuing rectal bleed but the frequency has decreased a lot from admission. Patient denies any fever, chills dizziness, lightheadedness and shortness of breath today. Continuing on Rocephin for UTI. She is scheduled for colonoscopy today. 05/13/25: Patient was seen and evaluated in room 117. Patient reports of irregular menstrual spotting and also reports of continuing rectal bleed which is scant. patient denies any fever, chills, lightheadedness and shortness of breath. Patient coloscopy came back positive for nonbleeding hemorrhoids. Patient scheduled image guided-biopsy from today for possible leiomyosarcoma is scheduled for tomorrow because radiologist was busy with a different case. 05/14/25: Patient was seen and evaluated in room 117. Patient denies any active complaints. Patient denies any rectal bleed today. Patient denies any fever, chills, lightheadedness and shortness of breath. Patient is scheduled for image guided-biopsy from today for possible leiomyosarcoma today. REVIEW OF SYSTEMS REVIEW OF SYSTEMS CONSTITUTIONAL: Complains of fever, Denies chills, or night sweats. No unintentional weight loss reported. NEUROLOGICAL: Denies headache, amaurosis fugax, motor weakness, sensory deficit, vertigo/spinning sensation, gait abnormalities, or tremors. ENT: No hearing loss, otalgia, otorrhea, rhinitis, rhinorrhea, hoarseness, or sore throat. CARDIOVASCULAR: Denies any exertional angina, dyspnea on exertion, orthopnea, paroxysmal nocturnal dyspnea, palpitations, life-threatening arrhythmias, claudication. PULMONARY: Denies any shortness of breath, cough, phlegm/sputum, hemoptysis, pl euritic chest pain. SLEEP: Denies morning headaches, daytime somnolence or napping. Denies difficulty falling asleep, staying asleep, waking from sleep. Denies knowledge of snoring. GASTROINTESTINAL: Denies any type of dysphagia to either liquids or solids. Denies nausea, vomiting, pyrosis, early satiety, abdominal pain, diarrhea, constipation, or changes in stool consistency or caliber. Denies coffee-ground emesis, hematemesis, hematochezia, or melanotic stools. GENITOURINARY: Denies frequency, urgency, nocturia, hematuria or incontinence (Storage/Irritative symptoms.) Low urinary stream, straining to void, urinary intermittency or hesitancy, splitting of the voiding stream, terminal dribbling. PHYSICAL EXAM GENERAL APPEARANCE: The patient is awake, alert, and oriented, in no acute cardiopulmonary distress. NEUROLOGICAL: Cranial nerves II-XII grossly intact. Motor is 5/5 in bilateral upper and lower extremities proximal to distal. No sensory deficits. HEENT: Face is symmetric. Pupils are equal and reactive. Extraocular movements are intact. NECK: Supple. No JVD. No thyromegaly. No submental, submandibular, pre- /postauricular, occipital or supraclavicular lymphadenopathy. CHEST: Normal chest expansion. No Telemetry. LUNGS: Absence of any rales, rhonchi or any wheezing. CARDIOVASCULAR: Regular. S1 and S2 normal. No appreciable rubs, murmurs or gallops. ABDOMEN: Diffuse abdominal tenderness. There is no rebound, voluntary guarding, or rigidity. : Deferred. No Mccormack. EXTREMITIES: Non-edematous and not cyanotic. No clubbing. Good capillary refill. SKIN: No skin breakdown. Vital Signs (last 8hr) Date Time Temp Pulse Resp B/P (MAP) Pulse Ox O2 Delivery O2 Flow Rate FiO2 05/14/25 07:41 98.8 77 18 115/78 97 Room Air 05/14/25 04:00 99.0 85 18 119/59 97 Room Air LABS: Laboratory: Test 05/14/25 05:07 05/13/25 08:36 05/13/25 04:42 Range/Units White Blood Count 7.8 4.8-10.8 K/uL Red Blood Count 2.50 L 4.00-5.50 MIL/uL Hemoglobin 7.3 L 12.0-16.0 g/dL Hematocrit 22.7 L 36-48 % Mean Corpuscular Volume 90.8 79-99 fL Mean Corpuscular Hemoglobin 29.2 27.0-33.0 pg Mean Corpuscular Hemoglobin Concent 32.2 32.0-36.0 g/dL Red Cell Distribution Width 14.1 11.0-15.5 % Platelet Count 305 130-400 K/uL Mean Platelet Volume 9.1 7.5-10.5 fL Immature Granulocyte % (Auto) 1.0 0-1 % Neutrophils (%) (Auto) 56.4 40.0-77.0 % Lymphocytes (%) (Auto) 31.8 21.0-51.0 % Monocytes (%) (Auto) 8.4 3.0-13.0 % Eosinophils (%) (Auto) 2.0 0.0-8.0 % Basophils (%) (Auto) 0.4 0.0-5.0 % Neutrophils # (Auto) 4.4 1.8-7.7 K/uL Lymphocytes # (Auto) 2.5 1.0-4.8 K/uL Monocytes # (Auto) 0.7 0.1-1.0 K/uL Eosinophils # (Auto) 0.16 0.00-0.70 K/uL Basophils # (Auto) 0.03 0.00-0.20 K/uL Absolute Immature Granulocyte (auto 0.08 0-1 K/uL Nucleated Red Blood Cells 0.0 0.0-0.19 % Sodium Level 139 136-145 mmol/L Potassium Level 3.6 3.5-5.1 mmol/L Chloride Level 107 101-111 mmol/L Carbon Dioxide Level 25 21-32 mmol/L Blood Urea Nitrogen 3 L 7-18 mg/dL Creatinine 0.6 0.5-1.0 mg/dL Glomerular Filtration Rate Calc 109 >90 mL/min Random Glucose 102 70-105 mg/dL Total Calcium 7.7 L 8.5-10.1 mg/dL Prothrombin Time 10.6 9.6-11.6 SEC Prothromb Time International Ratio 1.00 0.85-1.15 Total Bilirubin 0.2 0.2-1.0 mg/dL Aspartate Amino Transf (AST/SGOT) 16 10-37 U/L Alanine Aminotransferase (ALT/SGPT) 15 12-78 U/L Alkaline Phosphatase 53 50-136 U/L Total Protein 6.4 6.0-8.3 g/dL Albumin 2.4 L 3.5-5.0 g/dL Current Medications Medications (Trade) Dose Ordered Sig/Richar Route PRN Reason Start Time Stop Time Status Last Admin Dose Admin Acetaminophen (TYLenol 325MG TAB) 650 mg Q4H PRN PO TEMPERATURE GREATER THAN 101.5 05/09/25 15:30 06/08/25 15:29 05/11/25 21:44 650 MG Acetaminophen (TYLenol 325MG TAB) 650 mg Q4H PRN PO MILD PAIN (1-3) 05/12/25 22:30 06/11/25 22:29 05/12/25 22:48 650 MG Ceftriaxone Sodium (Rocephin 2gm Inj) 2 gm Q24H IVPB 05/11/25 15:00 05/21/25 14:59 05/13/25 15:00 2 GM Hydralazine HCl (APRESOLine 20MG INJ) 5 mg Q4H PRN IV ADMINISTER FOR SBP > 160 05/09/25 15:30 06/08/25 15:29 Hydrocortisone Acetate (anuSOL-HC 25MG SUPP) 1 supp DAILY WI 05/10/25 09:00 06/09/25 08:59 05/14/25 09:09 1 SUPP Lactulose (Constulose 20gm/ 30ml Udcup) 20 gm BID PRN PO CONSTIPATION 05/09/25 16:00 06/08/25 15:59 Magnesium Sulfate 50 ml @ 0 mls/hr PROTOCOL PRN IV low mag level 05/09/25 16:00 06/08/25 15:59 Morphine Sulfate (morPHINE 2MG SYG) 2 mg Q4H PRN IVP SEVERE PAIN (7-10) 05/09/25 15:30 05/16/25 15:29 Ondansetron HCl (zoFRAN 4MG INJ) 4 mg Q6H PRN IVP NAUSEA/VOMITING 05/09/25 15:30 06/08/25 15:29 Pantoprazole Sodium (PROTonix 40MG INJ) 40 mg DAILY IVP 05/10/25 09:00 06/09/25 08:59 05/14/25 09:09 40 MG Polyethylene Glycol/ Electrolytes (Golytely/Colyte Soln) 4,000 ml ONCE STAT PO 05/11/25 17:44 05/11/25 17:47 DC 05/11/25 19:16 4,000 ML Potassium Chloride 100 ml @ 100 mls/hr AD PRN IV POTASSIUM PROTOCOL 05/09/25 16:00 06/08/25 15:59 Potassium Chloride (K-Dur/Klor-Con 20meq) 20 meq AD PRN PO POTASSIUM PROTOCOL 05/09/25 16:00 06/08/25 15:59 05/12/25 22:52 20 MEQ Potassium Chloride (KCl 10% Elixir 20meq/15ml) 20 meq AD PRN PO POTASSIUM PROTOCOL 05/09/25 16:00 06/08/25 15:59 Sodium Chloride 1,000 ml @ 75 mls/hr [id number] IV 05/09/25 15:30 06/08/25 15:29 05/13/25 19:23 75 MLS/HR DIAGNOSTICS / RADIOLOGY: [facility] [address] [place] [address] IMAGING REPORT Addendum PATIENT: JARET EGAN MR#: [id number] : 1975 SEX: F AGE: 50 LOCATION: 1MS ORDER 56 STATUS: ADM IN REPORT#: [id number] SERVICE 46 REASON: pelvic mass ORDERING PHYSICIAN: ELIZABETH KHAN [employer] PROCEDURE: PELV WWO - MR PELVIS W/WO CON ADDENDUM REPORT ADDENDUM: Results were shared by telephone at 11:34 pm on 05-11-25 and acknowledged by Patient Nurse Ms. Nemo Hancock. /[facility] EXAM: MRI PELVIS WITH AND WITHOUT INTRAVENOUS CONTRAST Technique: Multiplanar, multisequence magnetic resonance imaging of the pelvis was performed before and after intravenous contrast administration, including axial, sagittal, and coronal T1- and T2-weighted sequences with fat-suppressed imaging, diffusion-weighted imaging, and dySnamic post-contrast acquisitions. Contrast: Clariscan (gadoterate meglumine) 0.5 mmol/mL, total 17 mL administered intravenously. Clinical Information: History of pelvic mass. Findings: Uterus: Uterus is enlarged, and a well-circumscribed subserosal leiomyoma arises from the right fundal uterine wall measuring 6.3 cm with internal cystic degeneration, chronic hemorrhagic components, and coarse calcifications; the lesion abuts and appears to communicate with the uterine fundus on a broad base. 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 Recommend CT-PET and surgical consultation for further workup. Cervix: Multiple Nabothian cysts are present without suspicious enhancing mass. Ovaries and adnexa: Left ovary contains a 4.1 cm dermoid cyst with macroscopic fat and internal complexity; right ovary contains a 3.4 cm dermoid cyst with similar characteristics; no suspicious enhancing adnexal mass is identified. Pelvic peritoneum and fluid: Minimal free fluid is present in the pelvis. Urinary bladder: Bladder contour and wall thickness are normal without intraluminal mass. Bowel: Visualized rectosigmoid and small bowel loops are unremarkable without obstruction. Lymph nodes: No pathologically enlarged pelvic lymph nodes are identified. Vasculature: Pelvic vessels are normal in course and caliber. Abdominal wall and soft tissues: No focal soft-tissue abnormality is identified. Osseous structures: No aggressive osseous lesion is identified. 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 Recommend CT-PET and surgical consultation for further workup. * Enlarged uterus with a second right side fundal subserosal leiomyoma measuring 6.3 cm demonstrating cystic degeneration, chronic hemorrhagic components, and calcifications; imaging features are most consistent with a benign fibroid. Gynecology consultation is recommended for management discussion; surgical options (myomectomy or hysterectomy) may be considered based on symptoms and fertility plans. * Bilateral ovarian dermoid cysts measuring 4.1 cm on the left and 3.4 cm on the right without imaging features of malignant transformation. Gynecology follow-up is recommended; elective surgical removal can be considered if symptomatic or enlarging. * Moderate pelvic free fluid and multiple cervical Nabothian cysts. * No suspicious pelvic lymphadenopathy or other pelvic mass. * Comparison: Compared with computed tomography of the abdomen and pelvis with intravenous contrast dated 05/09/2025 15:25 EST, the very large fundal fibroid mass and large lobulated right fundal subserosal mass corresponds to a subserosal uterine fibroid, and bilateral ovarian dermoid cysts and mild pelvic free fluid are again demonstrated without new suspicious findings. /[place] DICTATED BY: MANDY NOWAK MD DATE: 05/11/25 3627 ELECTRONICALLY SIGNED BY: DATE: EXAM: MRI PELVIS WITH AND WITHOUT INTRAVENOUS CONTRAST Technique: Multiplanar, multisequence magnetic resonance imaging of the pelvis was performed before and after intravenous contrast administration, including axial, sagittal, and coronal T1- and T2-weighted sequences with fat-suppressed imaging, diffusion-weighted imaging, and dySnamic post-contrast acquisitions. Contrast: Clariscan (gadoterate meglumine) 0.5 mmol/mL, total 17 mL administered intravenously. Clinical Information: History of pelvic mass. Findings: Uterus: Uterus is enlarged, and a well-circumscribed subserosal leiomyoma arises from the right fundal uterine wall measuring 6.3 cm with internal cystic degeneration, chronic hemorrhagic components, and coarse calcifications; the lesion abuts and appears to communicate with the uterine fundus on a broad base. 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 Recommend CT-PET and surgical consultation for further workup. Cervix: Multiple Nabothian cysts are present without suspicious enhancing mass. Ovaries and adnexa: Left ovary contains a 4.1 cm dermoid cyst with macroscopic fat and internal complexity; right ovary contains a 3.4 cm dermoid cyst with similar characteristics; no suspicious enhancing adnexal mass is identified. Pelvic peritoneum and fluid: Minimal free fluid is present in the pelvis. Urinary bladder: Bladder contour and wall thickness are normal without intraluminal mass. Bowel: Visualized rectosigmoid and small bowel loops are unremarkable without obstruction. Lymph nodes: No pathologically enlarged pelvic lymph nodes are identified. Vasculature: Pelvic vessels are normal in course and caliber. Abdominal wall and soft tissues: No focal soft-tissue abnormality is identified. Osseous structures: No aggressive osseous lesion is identified. 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 Recommend CT-PET and surgical consultation for further workup. * Enlarged uterus with a second right side fundal subserosal leiomyoma measuring 6.3 cm demonstrating cystic degeneration, chronic hemorrhagic components, and calcifications; imaging features are most consistent with a benign fibroid. Gynecology consultation is recommended for management discussion; surgical options (myomectomy or hysterectomy) may be considered based on symptoms and fertility plans. * Bilateral ovarian dermoid cysts measuring 4.1 cm on the left and 3.4 cm on the right without imaging features of malignant transformation. Gynecology follow-up is recommended; elective surgical removal can be considered if symptomatic or enlarging. * Moderate pelvic free fluid and multiple cervical Nabothian cysts. * No suspicious pelvic lymphadenopathy or other pelvic mass. * Comparison: Compared with computed tomography of the abdomen and pelvis with intravenous contrast dated 05/09/2025 15:25 EST, the very large fundal fibroid mass and large lobulated right fundal subserosal mass corresponds to a subserosal uterine fibroid, and bilateral ovarian dermoid cysts and mild pelvic free fluid are again demonstrated without new suspicious findings. /[place] DICTATED BY: MANDY NOWAK MD DATE: 05/11/252324 ELECTRONICALLY SIGNED BY: MANDY NOWAK MD DATE: 05/11/252324 ASSESSMENT: SIRS Rectal bleed POA Acute anemia secondary to blood loss POA Possible leiomyosarcoma, POA Uterine Fibroid, POA Constipation PLAN: SIRS: * Vitals on 05/11/25 at 12:00 AM were temperature 102.7, Pulse 104, Blood pressure - 98/55 * Urinalysis done on 05/11/25 was cloudy, positive for leukocyte esterase, WBC- TNTC, RBC-TNTC * CT abdomen was ordered, result show Large lobulated mass in the pelvis and right iliac fossa with an ill-defined interface with uterine fundus likely a large uterine subserosal fibroid, Bilateral ovarian dermoid cysts. Subserosal uterine fibroids with calcification, Mild pelvic free fluid, Mild hepatomegaly. * USG was ordered which showed Hepatomegaly with hepatic steatosis. Heterogenous mass in the abdomen * Urine culture was ordered, pending results * Blood culture ordered pending results. * CRP - 171.6, Procalcitonin-0.90, Lactic acid 1.0 * Continuing the patient on empiric antibiotic with Ceftriaxone 1gm. Rectal bleed, POA: * Started on Intravenous Fluid NS at 75 mL/hour * GI was consulted, will follow their recommendations. * We will monitor H&H trend to keep hemoglobin above 7.0 * CT abdomen was ordered, result show Large lobulated mass in the pelvis and right iliac fossa with an ill-defined interface with uterine fundus likely a large uterine subserosal fibroid, Bilateral ovarian dermoid cysts. Subserosal uterine fibroids with calcification, Mild pelvic free fluid, Mild hepatomegaly. * USG was ordered which showed Hepatomegaly with hepatic steatosis. Heterogenous mass in the abdomen. * Started on Protonix 40 mg IV daily * Started on Zofran 4 mg IV every 6 hours. Acute anemia secondary to blood loss, POA: * On presentation Hemoglobin was 9.8, Hematocrit was 30.3 * Anemia panel was ordered, Iron-16, TIBC-368, %Saturation-4.3, Ferritin-36. * Repeat %Saturation was ordered on 05/14/25, pending results * Hemoglobin trends 9.8>8.7>8.8>8.7>7.6>7.3>7.3 * We will monitor H&H trend to keep hemoglobin above 7.0 Possible leiomyosarcoma, POA * CT abdomen was ordered, result show Large lobulated mass in the pelvis and right iliac fossa with an ill-defined interface with uterine fundus likely a large uterine subserosal fibroid, Bilateral ovarian dermoid cysts. Subserosal uterine fibroids with calcification, Mild pelvic free fluid, Mild hepatomegaly. * MRI pelvis was ordered, results show very large right side uterine mass measuring 15.1cm x 12.0cm extending from the fundus of the uterus possible leiomyosarcoma, Enlarged uterus with a second right side fundal subserosal leiomyoma measuring 6.3 cm with cystic degeneration, chronic hemorrhagic components, and calcifications, Bilateral ovarian dermoid cysts measuring 4.1 cm on the left and 3.4 cm on the right, Moderate pelvic free fluid and multiple cervical Nabothian cysts. * Oncology was consulted, recommended image image guided-biopsy by IR to differentiate the mass which is scheduled today (05/14/25). Uterine Fibroid, POA * CT abdomen was ordered, result show Large lobulated mass in the pelvis and right iliac fossa with an ill-defined interface with uterine fundus likely a large uterine subserosal fibroid, Bilateral ovarian dermoid cysts. Subserosal uterine fibroids with calcification, Mild pelvic free fluid, Mild hepat omegaly. * MRI pelvis was ordered, results show Very large right side uterine mass measuring 15.1cm x 12.0cm extending from the fundus of the uterus possible leiomyosarcoma, Enlarged uterus with a second right side fundal subserosal leiomyoma measuring 6.3 cm with cystic degeneration, chronic hemorrhagic components, and calcifications, Bilateral ovarian dermoid cysts measuring 4.1 cm on the left and 3.4 cm on the right, Moderate pelvic free fluid and multiple cervical Nabothian cysts. * Oncology was consulted, will follow recommendations Supportive measures: Tylenol 650 mg po every 4 hours for fever Hydralazine 5 mg IV every 4 hours systolic pressure > 160 Lactulose 20 gm PO BID PRN constipation DVT ppx, GI ppx. ATTESTATION BY PHYSICIAN I have seen and examined the patient. I reviewed the documentation, medical decision making, and treatment plan as noted by the resident physician above. I agree with the findings and plan of care. REHAN AVINA MD, SHAJI MD May 14, 2025 11:07
[2025-05-14 11:10] LABS: % IRON SATURATION 20.2 % (22-44); IRON, SERUM 48.0 mcg/dL (50-170)
--- NOTE | 2025-05-14 12:00 | NUR ---
Pt. taken for radiology procedure via bed. No acute distress noted.
[2025-05-14] MEDS: MIDAZOLAM HCL 1 MG/ML 2ML VIAL ONE (12:49)
--- NOTE | 2025-05-14 13:03 | PN ---
This is a 50-year-old female that presents in ED with chief complaints of rectal bleed. onset since 5 days, severity of blood loss: moderate amount. Denies rectal pain, abd pain, suprapubic pain. Patient was diagnosed with hemorrhoids two days ago. Presented in ED two days ago with similar symptoms and was discharged with hydrocortisone acetate 25 mg suppository, reports taking medication was just started on Saturday evening. but this morning she was feeling dyspnea on exertion, headache, tired lightheaded and dizzy and decided to come to ED for further evaluation and treatment. ER workup was consistent with anemia secondary to blood loss from hemorrhoids. Patient never had her GI screening colonoscopy. She does reports she eats a lot of spicy foods on a daily basis and history of constipation. CT scan was done, results show - Large lobulated mass in the pelvis and right iliac fossa with an ill-defined interface with uterine fundus likely a large uterine subserosal fibroid, Bilateral ovarian dermoid cysts. Subserosal uterine fibroids with calcification, Mild pelvic free fluid, Mild hepatomegaly. USG abdomen showed hepatomegaly with hepatic steatosis and heterogenous mass in the abdomen. Pelvic MRI was done which showed Very large right side uterine mass measuring 15.1cm x 12.0cm extending from the fundus of the uterus possible leiomyosarcoma and enlarged uterus with a second right side fundal subserosal leiomyoma measuring 6.3 cm demonstrating cystic degeneration, chronic hemorrhagic components, and calcifications; imaging features are most consistent with a benign fibroid Patient was seen and evaluated in room 117. She is alert, awake and oriented x3. No acute events overnight, patient reports of continuing rectal bleed but the frequency has decreased a lot from admission. Patient denies any fever, chills dizziness, lightheadedness and shortness of breath today. Colonoscopy showed nonbleeding hemorrhoids. Her hgb is 7.6, Iron 16, TIBC 368, % sat 4.3, ferritin 36 PHYSICAL EXAM VITALS: Vital Signs GENERAL: ALERT, ORIENTED, APPEARS-NO ACUTE DISTRESS RESPIRATORY: LUNGS CLEAR-AUSC/PERCUS CARDIOVASCULAR: REGULAR RATE, REGULAR RHYTHM GASTROINTESTINAL: ABDOMEN IS SOFT, BOWEL SOUNDS PRESENT IMPRESSION 1. Acute blood loss anemia 2. Iron deficiency anemia 3. Uterine mass possible leiomyosarcoma PLAN 1. Pelvic MRI showing uterine mass measuring 15.1cm x 12.0cm. IR were consulted for biopsy to be done. 2. Peripheral smear showed microcytic, normochromic anemia, There is no fragment cells or schistocyte . No rouleaux phenomena. no blast cells or band forms or Pelger-Huet cells Increased platelet count due to HECTOR. Spherocytes are present, will request Direct Jonathan's test. 3. Iron-deficiency anemia - start iron supplementation with IV Venofer 200mg and oral iron supplementation for 6 months. 4. Colonoscopy revealed non bleeding hemorrhoids. I. The biopsy is done and patient stable she could be discharged to follow-up with us as outpatient. Vitals/Labs Vital Signs Date Time Temp Pulse Resp B/P (MAP) Pulse Ox O2 Delivery O2 Flow Rate FiO2 05/14/25 11:59 98.1 77 18 124/77 98 Room Air 05/13/25 20:00 0 21 Laboratory Tests 05/14/25 05:07 Medications Current Medications Iohexol 75 ml STK-MED ONCE IV; Start 05/09/25 at 15:11; Stop 05/09/25 at 15:12; Status DC Pantoprazole Sodium 40 mg DAILY IVP Last administered on 05/14/25at 09:09; Start 05/10/25 at 09:00; Stop 06/09/25 at 08:59 Acetaminophen 650 mg Q4H PRN PO Last administered on 05/11/25at 21:44; Start 05/09/25 at 15:30; Stop 06/08/25 at 15:29 Ondansetron HCl 4 mg Q6H PRN IVP; Start 05/09/25 at 15:30; Stop 06/08/25 at 15:29 Hydralazine HCl 5 mg Q4H PRN IV; Start 05/09/25 at 15:30; Stop 06/08/25 at 15:29 Morphine Sulfate 2 mg Q4H PRN IVP; Start 05/09/25 at 15:30; Stop 05/16/25 at 15:29 Sodium Chloride 1,000 ml @ 75 mls/hr [id number] IV Last administered on 05/13/25at 19:23; Start 05/09/25 at 15:30; Stop 06/08/25 at 15:29 Lactulose 20 gm BID PRN PO; Start 05/09/25 at 16:00; Stop 06/08/25 at 15:59 Magnesium Sulfate 50 ml @ 0 mls/hr PROTOCOL PRN IV; Start 05/09/25 at 16:00; Stop 06/08/25 at 15:59 Potassium Chloride 100 ml @ 100 mls/hr AD PRN IV; Start 05/09/25 at 16:00; Stop 06/08/25 at 15:59 Potassium Chloride 20 meq AD PRN PO; Start 05/09/25 at 16:00; Stop 06/08/25 at 15:59 Potassium Chloride 20 meq AD PRN PO Last administered on 05/12/25at 22:52; Start 05/09/25 at 16:00; Stop 06/08/25 at 15:59 Hydrocortisone Acetate 1 supp DAILY [place] Last administered on 05/14/25at 09:09; Start 05/10/25 at 09:00; Stop 06/09/25 at 08:59 Iron Sucrose 200 mg ONCE ONCE IV Last administered on 05/10/25at 16:07; Start 05/10/25 at 15:30; Stop 05/10/25 at 15:31; Status DC Iron Sucrose 200 mg ONCE ONCE IV Last administered on 05/11/25at 11:52; Start 05/11/25 at 11:30; Stop 05/11/25 at 11:31; Status DC Gadoterate Meglumine 10 mmol STK-MED ONCE IV; Start 05/11/25 at 14:33; Stop 05/11/25 at 14:33; Status DC Ceftriaxone Sodium 2 gm Q24H IVPB Last administered on 05/13/25at 15:00; Start 05/11/25 at 15:00; Stop 05/21/25 at 14:59 Polyethylene Glycol/ Electrolytes 4,000 ml ONCE STAT PO Last administered on 05/11/25at 19:16; Start 05/11/25 at 17:44; Stop 05/11/25 at 17:47; Status DC Propofol 200 mg STK-MED ONCE IV; Start 05/12/25 at 10:43; Stop 05/12/25 at 10:43; Status DC Lidocaine HCl 100 mg STK-MED ONCE .ROUTE; Start 05/12/25 at 10:43; Stop 05/12/25 at 10:43; Status DC Iron Sucrose 200 mg ONCE ONCE IV Last administered on 05/12/25at 11:35; Start 05/12/25 at 11:30; Stop 05/12/25 at 11:31; Status DC Acetaminophen 650 mg Q4H PRN PO Last administered on 05/12/25at 22:48; Start 05/12/25 at 22:30; Stop 06/11/25 at 22:29 Iron Sucrose 200 mg ONCE ONCE IV Last administered on 05/13/25at 12:57; Start 05/13/25 at 11:00; Stop 05/13/25 at 11:01; Status DC Midazolam HCl 2 mg STK-MED ONCE .ROUTE; Start 05/14/25 at 12:30; Stop 05/14/25 at 12:31; Status DC Fentanyl Citrate 100 mcg STK-MED ONCE .ROUTE; Start 05/14/25 at 12:31; Stop 05/14/25 at 12:31; Status DC DEE RODRIGUEZ MD May 14, 2025 13:02
--- NOTE | 2025-05-14 13:30 | NUR ---
CT GD ABD MASS BX PROCEDURE PERFORMED BY DR Lianna ARMAS. PUNCTURE SITE RT MID ABDOMEN AND PATIENT TOLERATED PROCEDURE WELL. SPECIMEN X 5 COLLECTED AND SENT TO LAB. END OF PROCEDURE AT 1315. BIOPSY NEEDLE REMOVED AND DRESSING APPLIED. NO BLEEDING NOTED. REPORT GIVEN TO ALE ROBERSON AND PATIENT TRANSPORTED TO [facility] VIA BED AT 1330. AAO X3 WITH NO C/O PAIN.
--- NOTE | 2025-05-14 13:37 | NUR ---
Pt. received from radiology. No acute distress noted. Will monitor V/S as per protocol.
--- NOTE | 2025-05-14 15:03 | HMCIMG ---
PERCUTANEOUS CT-GUIDED BIOPSY OF retroperitoneal mass: CLINICAL HISTORY: This is a 50 [id number] Female with for CT-guided biopsy of retroperitoneal mass. The risk and benefit was explained to the patient. The risks include infection and possible bleed. The patient consented to the procedure. PROCEDURE: Under CT guidance a large retroperitoneal mass was localized. After sterile prep and drapa, using 1% xylocaine for local anesthetic, using a 21-gauge Bard gun, a total of 3 core biopsies were obtained. The specimen was sent for histology and cell block. The patient tolerated the procedure and post-biopsy demonstrated no bleed. IMPRESSION: PERCUTANEOUS CT-GUIDED BIOPSY OF right retroperitoneal mass WITH SPECIMENS SENT FOR Histology and cell block. THE PATIENT TOLERATED PROCEDURE WELL. PATHOLOGY REPORT IS PENDING.
--- NOTE | 2025-05-14 16:21 | PN ---
GASTROENTEROLOGY PROGRESS NOTE Date of Visit: May 14, 2025 Time of Visit: 16:20 Events / Notes: No acute events overnight. Patient had colonoscopy revealing hemorrhoids. Plan of care discussed. Review of Systems: CONSTITUTIONAL: No malaise or change in sensation of wellbeing. ENMT: No rhinorrhea, otorrhea, sinus pain, ear ache. CARDIOVASCULAR: No angina, palpitations, orthopnea or paroxysmal dyspnea. RESPIRATORY: No SOB. GASTROINTESTINAL: No abdominal pain, nausea, vomiting, diarrhea, hematemesis, melena or change in the patient's habitual bowel movements consistency/number. GENITOURINARY: No dysuria, hematuria or change in bladder continence. MUSCULOSKELETAL: No new muscle pain or decrease in muscular strength. No new joint swelling, redness or tenderness. SKIN: No new rash. Physical Exam: GEN: Awake, alert, oriented in person, time and place, and in no acute distress. HEENT: No sinus tenderness. Tympanic membranes were not examined. No rhinorrhea. Oral pharyngeal mucosa is pink, moist and within normal limits. Neck is supple with no cervical lymphadenopathy, thyromegaly or JVD. CHEST: Inspection, palpation and percussion of the chest were unremarkable. Lung auscultation revealed normal breath sounds bilaterally. CARDIAC: PMI is within normal limits. Heart sounds are regular. Normal S1, S2. No gallop or murmur. ABD: Soft, non-tender and not distended. No peritoneal signs on palpation. No organomegaly. Normal bowel sounds. EXT: No cyanosis or clubbing. No edema. SKIN: Intact. No rashes. JOINTS: No evidence of synovitis or acute arthritis. NEURO: Alert and oriented to name, place and person. Cranial nerve examination is unremarkable. No focal motor deficits. Normal speech. Gait is normal. Strength is normal. Vital Signs (last 8hr) Date Time Temp Pulse Resp B/P (MAP) Pulse Ox O2 Delivery O2 Flow Rate FiO2 05/14/25 11:59 98.1 77 18 124/77 98 Room Air Laboratory: [ ] Laboratory: Test 05/14/25 05:07 05/13/25 08:36 05/13/25 04:42 Range/Units White Blood Count 7.8 4.8-10.8 K/uL Red Blood Count 2.50 L 4.00-5.50 MIL/uL Hemoglobin 7.3 L 12.0-16.0 g/dL Hematocrit 22.7 L 36-48 % Mean Corpuscular Volume 90.8 79-99 fL Mean Corpuscular Hemoglobin 29.2 27.0-33.0 pg Mean Corpuscular Hemoglobin Concent 32.2 32.0-36.0 g/dL Red Cell Distribution Width 14.1 11.0-15.5 % Platelet Count 305 130-400 K/uL Mean Platelet Volume 9.1 7.5-10.5 fL Immature Granulocyte % (Auto) 1.0 0-1 % Neutrophils (%) (Auto) 56.4 40.0-77.0 % Lymphocytes (%) (Auto) 31.8 21.0-51.0 % Monocytes (%) (Auto) 8.4 3.0-13.0 % Eosinophils (%) (Auto) 2.0 0.0-8.0 % Basophils (%) (Auto) 0.4 0.0-5.0 % Neutrophils # (Auto) 4.4 1.8-7.7 K/uL Lymphocytes # (Auto) 2.5 1.0-4.8 K/uL Monocytes # (Auto) 0.7 0.1-1.0 K/uL Eosinophils # (Auto) 0.16 0.00-0.70 K/uL Basophils # (Auto) 0.03 0.00-0.20 K/uL Absolute Immature Granulocyte (auto 0.08 0-1 K/uL Nucleated Red Blood Cells 0.0 0.0-0.19 % Sodium Level 139 136-145 mmol/L Potassium Level 3.6 3.5-5.1 mmol/L Chloride Level 107 101-111 mmol/L Carbon Dioxide Level 25 21-32 mmol/L Blood Urea Nitrogen 3 L 7-18 mg/dL Creatinine 0.6 0.5-1.0 mg/dL Glomerular Filtration Rate Calc 109 >90 mL/min Random Glucose 102 70-105 mg/dL Total Calcium 7.7 L 8.5-10.1 mg/dL Iron Level 48 L 50-170 mcg/dL Total Iron Binding Capacity 237 L 250-450 mcg/dL Percent Iron Saturation 20.2 L 22-44 % Prothrombin Time 10.6 9.6-11.6 SEC Prothromb Time International Ratio 1.00 0.85-1.15 Total Bilirubin 0.2 0.2-1.0 mg/dL Aspartate Amino Transf (AST/SGOT) 16 10-37 U/L Alanine Aminotransferase (ALT/SGPT) 15 12-78 U/L Alkaline Phosphatase 53 50-136 U/L Total Protein 6.4 6.0-8.3 g/dL Albumin 2.4 L 3.5-5.0 g/dL Current Medications Medications (Trade) Dose Ordered Sig/Richar Route PRN Reason Start Time Stop Time Status Last Admin Dose Admin Acetaminophen (TYLenol 325MG TAB) 650 mg Q4H PRN PO TEMPERATURE GREATER THAN 101.5 05/09/25 15:30 06/08/25 15:29 05/11/25 21:44 650 MG Acetaminophen (TYLenol 325MG TAB) 650 mg Q4H PRN PO MILD PAIN (1-3) 05/12/25 22:30 06/11/25 22:29 05/12/25 22:48 650 MG Ceftriaxone Sodium (Rocephin 2gm Inj) 2 gm Q24H IVPB 05/11/25 15:00 05/21/25 14:59 05/14/25 15:23 2 GM Hydralazine HCl (APRESOLine 20MG INJ) 5 mg Q4H PRN IV ADMINISTER FOR SBP > 160 05/09/25 15:30 06/08/25 15:29 Hydrocortisone Acetate (anuSOL-HC 25MG SUPP) 1 supp DAILY [place] 05/10/25 09:00 06/09/25 08:59 05/14/25 09:09 1 SUPP Lactulose (Constulose 20gm/ 30ml Udcup) 20 gm BID PRN PO CONSTIPATION 05/09/25 16:00 06/08/25 15:59 Magnesium Sulfate 50 ml @ 0 mls/hr PROTOCOL PRN IV low mag level 05/09/25 16:00 06/08/25 15:59 Morphine Sulfate (morPHINE 2MG SYG) 2 mg Q4H PRN IVP SEVERE PAIN (7-10) 05/09/25 15:30 05/16/25 15:29 Ondansetron HCl (zoFRAN 4MG INJ) 4 mg Q6H PRN IVP NAUSEA/VOMITING 05/09/25 15:30 06/08/25 15:29 Pantoprazole Sodium (PROTonix 40MG INJ) 40 mg DAILY IVP 05/10/25 09:00 06/09/25 08:59 05/14/25 09:09 40 MG Polyethylene Glycol/ Electrolytes (Golytely/Colyte Soln) 4,000 ml ONCE STAT PO 05/11/25 17:44 05/11/25 17:47 DC 05/11/25 19:16 4,000 ML Potassium Chloride 100 ml @ 100 mls/hr AD PRN IV POTASSIUM PROTOCOL 05/09/25 16:00 06/08/25 15:59 Potassium Chloride (K-Dur/Klor-Con 20meq) 20 meq AD PRN PO POTASSIUM PROTOCOL 05/09/25 16:00 06/08/25 15:59 05/12/25 22:52 20 MEQ Potassium Chloride (KCl 10% Elixir 20meq/15ml) 20 meq AD PRN PO POTASSIUM PROTOCOL 05/09/25 16:00 06/08/25 15:59 Sodium Chloride 1,000 ml @ 75 mls/hr [id number] IV 05/09/25 15:30 06/08/25 15:29 05/14/25 15:25 75 MLS/HR Diagnostics / Radiology: [COPY/PASTE HERE IF NO REPORTS PLEASE DELETE SECTION] Assessment: Hemorrhoids Acute blood loss anemia Abnormal imaging revealing pelvic mass Plan: Continue GI prophylaxis Advance diet as tolerated Avoid NSAIDs Antireflux measures Monitor H&H and transfuse as needed Call with questions, concerns or change in clinical status Patient to follow-up at clinic post discharge Thank you for this consult ELIZABETH KHAN IMPORT CLERK May 14, 2025 16:21
[2025-05-15] VITALS: BP 100/60; PULSE 79; RESP 16; TEMP 99.8
[2025-05-15 03:03] VITALS: BP 105/57; PULSE 79; RESP 16; TEMP 99.5
[2025-05-15 04:32] LABS: IMMATURE GRANULOCYTE ABSOLUTE 0.11 K/uL (0-1); NUCLEATED RED BLOOD CELLS 0.5 % (0.0-0.19); PLATELET COUNT (AUTO) 319 K/uL (130-400); RED BLOOD CELL COUNT(AUTO) 2.70 MIL/uL (4.00-5.50); RED CELL DISTRIBUTION WIDTH 14.6 % (11.0-15.5); WHITE BLOOD COUNT (AUTO) 7.9 K/uL (4.8-10.8)
[2025-05-15 04:45] LABS: CREATININE 0.6 mg/dL (0.5-1.0); GLOMERULAR FILTR. RATE CALC 109.0 mL/min (>90); GLUCOSE,RANDOM 121.0 mg/dL (70-105); SODIUM SERUM 140.0 mmol/L (136-145); UREA NITROGEN, BLOOD 4.0 mg/dL (7-18)
[2025-05-15 07:25] VITALS: BP 96/54; PULSE 81; RESP 18; TEMP 98.6
[2025-05-15 08:30] VITALS: O2SAT 97
[2025-05-15 11:02] VITALS: BP 119/63; PULSE 78; RESP 18; TEMP 98.6
[2025-05-15] MEDS ORDERED: FERR-82 PO (13:01)
--- NOTE | 2025-05-15 13:43 | NUR ---
DISCHARGE PERIPHERAL IV REMOVED DISCHARGE EDUCATION AND INSTRUCTIONS PROVIDED TO PATIENT PATIENT AND FAMILY AWARE TO FOLLOW UP WITH PCP IN 2-3 DAYS. PATIENT AWARE TO FOLLOW UP WITH GI AND HEMATOLOGY IN 1-2 WEEKS. PATIENT AND FAMILY AWARE OF NEW PRESCRIPTION AND TO PHOTOGRAPHY ASSISTANT NEW PRESCRIPTION AT PREFERRED PHARMACY ALL QUESTIONS ANSWERED.
--- NOTE | 2025-05-15 16:56 | DS ---
Discharge Summary Hospital Course Summary: The patient is a 50-year-old female who came to the ER with complaint the to bleed since 5 days. The patient denied any rectal pain, abdominal pain or suprapubic pain. The patient was diagnosed with hemorrhoids recently and presented to the ER with similar symptoms and was discharged home with hydrocortisone acetate 25 mg suppository. The patient's stated that she started taking the medications but in the morning the patient was feeling dyspnea on exertion, headache, tired, lightheadedness and dizziness and therefore the patient decided to come to the ER. As per the patient the patient never had a GI screening colonoscopy and had history of constipation. In the ER the patient had temperature 98.8, pulse 90, respiratory rate 20, blood pressure 113/68 and maintaining oxygen saturation at 98%. Labs showed WBC 10.6, hemoglobin 9.8 and platelets 290. BMP was unremarkable. CT scan abdomen and pelvis showed large lobulated mass in the pelvis and right iliac fossa with an ill-defined interface with uterine fundus likely a large uterine subserosal fibroid, bi lateral ovarian dermoid cysts, subserosal uterine fibroids with calcification, mild pelvic free fluid, and mild hepatomegaly. Urinalysis was positive for leukocyte esterase and urinary WBC and RBC. During the hospital admission, gastroenterology was consulted for hematochezia and anemia and positive stool occult blood. Gastroenterology planned the patient for colonoscopy. Colonoscopy was positive for nonbleeding hemorrhoids. In Neurosurgery ordered to continue GI prophylaxis, avoid NSAIDs and to follow up at the clinic as outpatient. Abdominal ultrasound was also done that showed hepatomegaly with hepatic steatosis and heterogeneous mass in the abdomen. Due to positive ultrasound and CT scan finding, MRI of the abdomen/pelvis was done that showed very large right side uterine mass measuring 15.1 cm x 12.0 cm extended from the fundus of the uterus, possible leiomyosarcoma. Therefore, hematology/oncology was consulted who planned the patient for biopsy which was done successfully with recommendations to follow up with outpatient for biopsy results. They also recommended to start patient on IV Venofer and oral iron supplementation for 6 months. Hematology also ordered a direct Jonathan test which was negative. The patient's hemoglobin decreased during the hospital course and she was transfused IV Venofer and today her hemoglobin was 8 During the hospital admission the patient developed high-grade fever of 102.7, his pulse rate 104, blood pressure 98/55 therefore blood culture urine culture were sent that showed no growth. Patient's CRP was 171.6, procalcitonin 0.92 and lactic acid 1.0. The patient was started and continued on IV ceftriaxone 1 g. The patient was stable today and was discharged with recommendation to take ferrous sulfate for 6 months every alternate day. The patient was also advised to follow with GI and Hematology Oncology for her rectal bleed and biopsy resu lts respectively. The patient voiced understanding of the recommendations. The patient was concerned if she is okay to work for which he was given clearance. Sex Therapist(s): Gastroenterology Gastroenterology was consulted due to hematochezia Assessment: Hematochezia Acute blood loss anemia Abnormal imaging revealing pelvic mass Plan: Obtain pelvic MRI Pending the above, plan for colonoscopy to follow Continue GI prophylaxis Advance diet as tolerated Avoid NSAIDs Antireflux measures Monitor H&H and transfuse as needed Call with questions, concerns or change in clinical status Patient to follow-up at clinic post discharge Thank you for this consult Hematology/oncology IMPRESSION 1. Acute blood loss anemia 2. Iron deficiency anemia 3. Uterine mass possible leiomyosarcoma PLAN 1. Pelvic MRI showing uterine mass measuring 15.1cm x 12.0cm , will request image guided-biopsy by IR to differentiate the mass 2. Peripheral smear showed microcytic, normochromic anemia, There is no fragment cells or schistocyte . No rouleaux phenomena. no blast cells or band forms or Pelger-Huet cells Increased platelet count due to HECTOR. Spherocytes are present, will request Direct Jonathan's test. 3. Iron-deficiency anemia - start iron supplementation with IV Venofer 200mg and oral iron supplementation for 6 months. 4. Colonoscopy revealed non bleeding hemorrhoids. Procedure(s): IMAGING REPORT Signed PATIENT: JARET EGAN MR#: [id number] : 1975 SEX: F AGE: 50 LOCATION: [facility] ORDER 48 STATUS: ADM IN REPORT#: [id number] SERVICE 48 REASON: GI BLEED ORDERING PHYSICIAN: KEREN BARRON MD PROCEDURE: ABD PEL W - CT ABDOMEN/PELVIS W/CONTRAST EXAM: CT Abdomen and Pelvis with IV Contrast. CLINICAL HISTORY: GI bleed. TECHNIQUE: Axial computed tomography images of the abdomen and pelvis with intravenous contrast. CONTRAST: With intravenous contrast. COMPARISON: None provided. FINDINGS: LUNG BASES: Clear. No pleural effusions. LIVER: Enlarged, measuring 21.6 cm. No focal lesion. GALLBLADDER AND BILE DUCTS: Gallbladder within normal limits. No radiopaque gallstones. No biliary ductal dilatation. PANCREAS: Unremarkable. SPLEEN: Unremarkable. ADRENAL GLANDS: Unremarkable. KIDNEYS, URETERS, AND BLADDER: Kidneys within normal limits. No hydronephrosis or hydroureter. No urinary calculi. Bosniak I cyst in the mid pole of the left kidney measuring 3.6 x 3.6 cm. STOMACH AND BOWEL: Unremarkable appearance of the stomach and bowel. No bowel obstruction. No findings of enteritis or colitis. APPENDIX: No evidence of acute appendicitis. PERITONEUM: Mild free fluid in pelvis. No free air. LYMPH NODES: No lymphadenopathy. REPRODUCTIVE: Lobulated heterogeneously enhancing mass in the pelvis and right iliac fossa measuring 10.2 x 13.9 x 12.8 cm, showing ill-defined interface with the uterine fundus, displacing adjacent bowel loops, and closely abutting the right lobe of the liver with preserved fat planes. Bulky uterus with two well-defined subserosal fibroids containing internal calcifications in the fundus and right lateral wall, largest measuring 7.5 x 6.7 x 6.8 cm. Well-defined oval fat-attenuating lesions in both adnexa, measuring 4.0 x 2.6 cm on the right and 4.3 x 3.5 cm on the left, suggestive of ovarian dermoid cysts. VASCULATURE: No abdominal aortic aneurysm. BONES: No aggressive osseous lesion. No acute osseous pathology. IMPRESSION: Large lobulated mass in the pelvis and right iliac fossa with an ill-defined interface with uterine fundus likely a large uterine subserosal fibroid. Possibility of a neoplastic uterine mass cannot be ruled out. Pelvic MRI recommended to better evaluate Bilateral ovarian dermoid cysts. Subserosal uterine fibroids with calcification. Mild pelvic free fluid. Mild hepatomegaly. /[place] DICTATED BY: DORA CASSIDY MD DATE: 05/09/251756 ELECTRONICALLY SIGNED BY: DORA CASSIDY MD DATE: 05/09/251756 Signed PATIENT: JARET EGAN MR#: [id number] : 1975 SEX: F AGE: 50 LOCATION: 1MS ORDER 1233 STATUS: ADM IN REPORT#: [id number] SERVICE 1231 REASON: RUQ pain W/ hepatomegaly ORDERING PHYSICIAN: BRONSON GALVAN MD PROCEDURE: ABDRUQLTD - US ABDOMINAL RUQ\LTD EXAMINATION: ULTRASOUND OF THE ABDOMEN (LIMITED) WITH COLOR DOPPLER. CLINICAL HISTORY: Hepatomegaly. COMPARISON: CT abdomen and pelvis with contrast dated 05/09/2025. TECHNIQUE: Real-time grayscale ultrasound images of the abdomen. In addition, color Doppler is medically necessary to perform in order to evaluate vascularity and blood flow. FINDINGS: Liver: Bulky in caliber, the right hepatic lobe measures 20.0 cm in the craniocaudal dimension. There is increased echogenicity of the hepatic parenchyma. There is no focal hepatic abnormality or intrahepatic biliary ductal dilatation. There is normal spectral Doppler of the main portal vein. Gallbladder: Within normal limits with normal wall thickness (0.16 cm). No hyperemia or pericholecystic free fluid. There is no cholelithiasis. Common bile duct is normal in caliber, measuring 0.35 cm. Pancreas: Normal in caliber and echotexture. No calcification or dilated pancreatic duct. The right kidney is normal in caliber, the right kidney measures 10.6 x 3.9 x 3.8 cm in craniocaudal, AP, and transverse dimensions respectively. There is normal renal cortical thickness, and cortical echogenicity. There is no renal calculus or hydronephrosis. There is heterogenous mass in the mid abdomen area that measures 13.3 x 8.1 x 13.0 cm with vascularity. IMPRESSION: Hepatomegaly with hepatic steatosis. Heterogenous mass in the abdomen. On comparison with the prior CT the mass is arising from the uterus. Recommend MRI pelvis with contrast. /[place] DICTATED BY: BRANDY MCLEOD MD DATE: 05/11/25653 ELECTRONICALLY SIGNED BY: BRANDY MCLEOD MD DATE: 05/11/25653 Addendum PATIENT: JARET EGAN MR#: [id number] : 1975 SEX: F AGE: 50 LOCATION: 1MS ORDER 56 STATUS: ADM IN REPORT#: [id number] SERVICE 46 REASON: pelvic mass ORDERING PHYSICIAN: ELIZABETH KHAN [employer] PROCEDURE: PELV WWO - MR PELVIS W/WO CON ADDENDUM REPORT ADDENDUM: Results were shared by telephone at 11:34 pm on 05-11-25 and acknowledged by Patient Nurse Ms. Nemo Hancock. /[place] EXAM: MRI PELVIS WITH AND WITHOUT INTRAVENOUS CONTRAST Technique: Multiplanar, multisequence magnetic resonance imaging of the pelvis was performed before and after intravenous contrast administration, including axial, sagittal, and coronal T1- and T2-weighted sequences with fat-suppressed imaging, diffusion-weighted imaging, and dySnamic post-contrast acquisitions. Contrast: Clariscan (gadoterate meglumine) 0.5 mmol/mL, total 17 mL administered intravenously. Clinical Information: History of pelvic mass. Findings: Uterus: Uterus is enlarged, and a well-circumscribed subserosal leiomyoma arises from the right fundal uterine wall measuring 6.3 cm with internal cystic degeneration, chronic hemorrhagic components, and coarse calcifications; the lesion abuts and appears to communicate with the uterine fundus on a broad base. 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 Recommend CT-PET and surgical consultation for further workup. Cervix: Multiple Nabothian cysts are present without suspicious enhancing mass. Ovaries and adnexa: Left ovary contains a 4.1 cm dermoid cyst with macroscopic fat and internal complexity; right ovary contains a 3.4 cm dermoid cyst with similar characteristics; no suspicious enhancing adnexal mass is identified. Pelvic peritoneum and fluid: Minimal free fluid is present in the pelvis. Urinary bladder: Bladder contour and wall thickness are normal without intraluminal mass. Bowel: Visualized rectosigmoid and small bowel loops are unremarkable without obstruction. Lymph nodes: No pathologically enlarged pelvic lymph nodes are identified. Vasculature: Pelvic vessels are normal in course and caliber. Abdominal wall and soft tissues: No focal soft-tissue abnormality is identified. Osseous structures: No aggressive osseous lesion is identified. 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 Recommend CT-PET and surgical consultation for further workup. * Enlarged uterus with a second right side fundal subserosal leiomyoma measuring 6.3 cm demonstrating cystic degeneration, chronic hemorrhagic components, and calcifications; imaging features are most consistent with a benign fibroid. Gynecology consultation is recommended for management discussion; surgical options (myomectomy or hysterectomy) may be considered based on symptoms and fertility plans. * Bilateral ovarian dermoid cysts measuring 4.1 cm on the left and 3.4 cm on the right without imaging features of malignant transformation. Gynecology follow-up is recommended; elective surgical removal can be considered if symptomatic or enlarging. * Moderate pelvic free fluid and multiple cervical Nabothian cysts. * No suspicious pelvic lymphadenopathy or other pelvic mass. * Comparison: Compared with computed tomography of the abdomen and pelvis with intravenous contrast dated 05/09/2025 15:25 EST, the very large fundal fibroid mass and large lobulated right fundal subserosal mass corresponds to a subserosal uterine fibroid, and bilateral ovarian dermoid cysts and mild pelvic free fluid are again demonstrated without new suspicious findings. /[place] DICTATED BY: MANDY NOWAK MD DATE: 05/11/25 5266 ELECTRONICALLY SIGNED BY: DATE: EXAM: MRI PELVIS WITH AND WITHOUT INTRAVENOUS CONTRAST Technique: Multiplanar, multisequence magnetic resonance imaging of the pelvis was performed before and after intravenous contrast administration, including axial, sagittal, and coronal T1- and T2-weighted sequences with fat-suppressed imaging, diffusion-weighted imaging, and dySnamic post-contrast acquisitions. Contrast: Clariscan (gadoterate meglumine) 0.5 mmol/mL, total 17 mL administered intravenously. Clinical Information: History of pelvic mass. Findings: Uterus: Uterus is enlarged, and a well-circumscribed subserosal leiomyoma arises from the right fundal uterine wall measuring 6.3 cm with internal cystic degeneration, chronic hemorrhagic components, and coarse calcifications; the lesion abuts and appears to communicate with the uterine fundus on a broad base. 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 Recommend CT-PET and surgical consultation for further workup. Cervix: Multiple Nabothian cysts are present without suspicious enhancing mass. Ovaries and adnexa: Left ovary contains a 4.1 cm dermoid cyst with macroscopic fat and internal complexity; right ovary contains a 3.4 cm dermoid cyst with similar characteristics; no suspicious enhancing adnexal mass is identified. Pelvic peritoneum and fluid: Minimal free fluid is present in the pelvis. Urinary bladder: Bladder contour and wall thickness are normal without intraluminal mass. Bowel: Visualized rectosigmoid and small bowel loops are unremarkable without obstruction. Lymph nodes: No pathologically enlarged pelvic lymph nodes are identified. Vasculature: Pelvic vessels are normal in course and caliber. Abdominal wall and soft tissues: No focal soft-tissue abnormality is identified. Osseous structures: No aggressive osseous lesion is identified. 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 Recommend CT-PET and surgical consultation for further workup. * Enlarged uterus with a second right side fundal subserosal leiomyoma measuring 6.3 cm demonstrating cystic degeneration, chronic hemorrhagic components, and calcifications; imaging features are most consistent with a benign fibroid. Gynecology consultation is recommended for management discussion; surgical options (myomectomy or hysterectomy) may be considered based on symptoms and fertility plans. * Bilateral ovarian dermoid cysts measuring 4.1 cm on the left and 3.4 cm on the right without imaging features of malignant transformation. Gynecology follow-up is recommended; elective surgical removal can be considered if symptomatic or enlarging. * Moderate pelvic free fluid and multiple cervical Nabothian cysts. * No suspicious pelvic lymphadenopathy or other pelvic mass. * Comparison: Compared with computed tomography of the abdomen and pelvis with intravenous contrast dated 05/09/2025 15:25 EST, the very large fundal fibroid mass and large lobulated right fundal subserosal mass corresponds to a subserosal uterine fibroid, and bilateral ovarian dermoid cysts and mild pelvic free fluid are again demonstrated without new suspicious findings. /[place] DICTATED BY: MANDY NOWAK MD DATE: 05/11/252324 ELECTRONICALLY SIGNED BY: MANDY NOWAK MD DATE: 05/11/252324 Signed PATIENT: JARET EGAN MR#: [id number] : 1975 SEX: F AGE: 50 LOCATION: 1MS ORDER 99 STATUS: ADM IN REPORT#: [id number] SERVICE 0800 REASON: uterine mass possible leiomyosarcoma vs GIST ORDERING PHYSICIAN: RODOLFO MORALES MD PROCEDURE: BXABDCT - CT BX ABD/RETROPERI NDL PRC IR PERCUTANEOUS CT-GUIDED BIOPSY OF retroperitoneal mass: CLINICAL HISTORY: This is a 50 [id number] Female with for CT-guided biopsy of retroperitoneal mass. The risk and benefit was explained to the patient. The risks include infection and possible bleed. The patient consented to the procedure. PROCEDURE: Under CT guidance a large retroperitoneal mass was localized. After sterile prep and drapa, using 1% xylocaine for local anesthetic, using a 21-gauge Bard gun, a total of 3 core biopsies were obtained. The specimen was sent for histology and cell block. The patient tolerated the procedure and post-biopsy demonstrated no bleed. IMPRESSION: PERCUTANEOUS CT-GUIDED BIOPSY OF right retroperitoneal mass WITH SPECIMENS SENT FOR Histology and cell block. THE PATIENT TOLERATED PROCEDURE WELL. PATHOLOGY REPORT IS PENDING. DICTATED BY: PITA ARMAS MD DATE: 05/14/25 1500 ELECTRONICALLY SIGNED BY: PITA ARMAS MD DATE: 05/14/25 1503 Assessment/Plan: ASSESSMENT: SIRS Rectal bleed POA Acute anemia secondary to blood loss POA Possible leiomyosarcoma, POA Uterine Fibroid, POA Constipation Discharge Instructions: *Follow up with your primary care physician in 2 - 3 days after discharge. *Follow up with hematology/oncology for biopsy results *Follow up with gastroenterology *Continue all medications as prescribed. Do not discontinue or change dosages without consulting your PCP. *Gradually resume normal activities as tolerated. *Continue a balanced diet . Reduce salt intake to help manage BP. Home Medications: Active Scripts Ferrous Sulfate (Iron) 325 Mg (65 Mg Iron) Tablet, 1 TAB PO QODAY for 180 Days, #90 TAB 0 Refills Prov:KERLINE YANES MD 05/15/25 Pantoprazole Sodium (Protonix) 40 Mg Ectab, 1 TAB PO DAILY for 30 Days, #30 TAB 0 Refills Prov:KEREN BARRON MD 05/06/25 Hydrocortisone Acetate (Hemmorex-Hc) 25 Mg Supp.rect, 25 MG RC DAILY for 5 Days, #5 EA Prov:KEREN BARRON MD 05/06/25 New Medications: Ferrous Sulfate (Iron) 325 Mg (65 Mg Iron) Tablet 1 TAB PO QODAY for 180 Days, #90 TAB 0 Refills Continued Medications: Hydrocortisone Acetate (Hemmorex-Hc) 25 Mg Supp.rect 25 MG RC DAILY for 5 Days, #5 EA Pantoprazole Sodium (Protonix) 40 Mg Ectab 1 TAB PO DAILY for 30 Days, #30 TAB 0 Refills Time spent arranging discharge: 1-30 minutes ATTESTATION BY PHYSICIAN I have seen and examined the patient. I reviewed the documentation, medical decision making, and treatment plan as noted by the resident physician above. I agree with the findings and plan of care. REHAN AVINA MD, SYED M MD May 15, 2025 16:56
== END 2025-05-15 14:15 | disposition home or self-care (01) | DRG 394 ==
LOC: EDH 13:45 → EDHIP 13:46 → 4CH 19:50 → 1MS 05-10 14:00
PROVIDERS: ADMIT Internal Medicine; ATTEND Internal Medicine
PROC: 0DJD8ZZ Inspection of Lower Intestinal Tract, Via Natural or Artificial Opening Endoscopic (ICD-10-PCS; principal; 2025-05-12)
PROC: 0WBH3ZX Excision of Retroperitoneum, Percutaneous Approach, Diagnostic (ICD-10-PCS; 2025-05-14)
DX: K64.2 Third degree hemorrhoids (principal); D62 Acute posthemorrhagic anemia; K92.2 Gastrointestinal hemorrhage, unspecified; R65.10 Systemic inflammatory response syndrome (SIRS) of non-infectious origin without acute organ dysfunction; N39.0 Urinary tract infection, site not specified; K76.0 Fatty (change of) liver, not elsewhere classified; D50.9 Iron deficiency anemia, unspecified; D25.2 Subserosal leiomyoma of uterus; R19.09 Other intra-abdominal and pelvic swelling, mass and lump; K59.00 Constipation, unspecified; N83.292 Other ovarian cyst, left side; N83.291 Other ovarian cyst, right side; N88.8 Other specified noninflammatory disorders of cervix uteri; N92.0 Excessive and frequent menstruation with regular cycle; Z98.891 History of uterine scar from previous surgery; Z79.01 Long term (current) use of anticoagulants
CPT/HCPCS: 36415; 45378; 49180; 72197; 74177; 76705; 77012; 80048; 80053; 81001; 81025; 82270; 82607; 82728; 83540; 83550; 83605; 83735; 84145; 85014; 85018; 85025; 85610; 86140; 86704; 86706; 86709; 86803; 86880; 87040; 87086; 87340; 99152; 99153; 99285; A4606; G0378; J0696; J1756; J2003; J2250; J2470; J2704; J3010; J7030; Q9967; A4215; A4222; A4223; A4620; A9575; G0500; J3490